=== PATIENT | female | born 1990 | race African-American/Black ===

== ENCOUNTER 2020-09-21 15:43 | Outpatient (REF) | payer MEDICAID, SELFPAY ==
--- NOTE | 2020-09-21 | XR_ITS ---
EXAMINATION: XR knee LT 4V CLINICAL INFORMATION: Reason for Exam PAIN LEFT KNEE COMPARISON: None available at the time of this dictation. TECHNIQUE: Frontal lateral oblique and tunnel view. FINDINGS: BONES: No fracture or dislocation is present. JOINTS: Mild narrowing of medial joint space compartment suggest early DJD. There is no joint effusion. SOFT TISSUE: Normal IMPRESSION: Mild DJD medial compartment. No joint effusion.
== END 2020-09-21 15:44 | disposition home or self-care (01) ==
LOC: HO.XRAY 15:43
PROVIDERS: PCP Internal Medicine; Visit Provider Emergency Medicine
DX: M25.562 Pain in left knee (principal)
CPT/HCPCS: 73564

== ENCOUNTER → 2020-11-21 16:25 | Outpatient (BNV) | payer MEDICAID, SELFPAY | PROVIDERS: PCP Internal Medicine; Visit Provider Internal Medicine | DX: D50.9 Iron deficiency anemia, unspecified (principal); Z98.84 Bariatric surgery status | CPT/HCPCS: 99213; 99214 ==

== ENCOUNTER 2020-11-29 13:34 | Outpatient (REF) | payer MEDICAID, SELFPAY | END 2020-11-29 13:35 | disposition home or self-care (01) | LOC: HO.MDS 13:34 | PROVIDERS: Visit Provider Internal Medicine Medical Oncology | DX: D50.9 Iron deficiency anemia, unspecified (principal) | CPT/HCPCS: 96365; J2916 ==

== ENCOUNTER 2020-12-05 07:56 | Outpatient (REF) | payer MEDICAID, SELFPAY | END 2020-12-05 07:57 | disposition home or self-care (01) | LOC: HO.MDS 07:56 | PROVIDERS: Visit Provider Internal Medicine Medical Oncology | DX: D50.9 Iron deficiency anemia, unspecified (principal) | CPT/HCPCS: 96365; J2916 ==

== ENCOUNTER 2020-12-09 14:00 | Outpatient (RCR) | payer MEDICAID, SELFPAY | END 2020-12-28 15:28 | disposition other institution (70) | LOC: HO.PTWFD 14:00 | PROVIDERS: PCP Internal Medicine; Visit Provider Emergency Medicine | DX: M25.562 Pain in left knee (principal) | CPT/HCPCS: 97014; 97110; 97140; 97161; 97530 ==

== ENCOUNTER 2020-12-14 09:16 | Outpatient (REF) | payer MEDICAID, SELFPAY | END 2020-12-14 09:17 | disposition home or self-care (01) | LOC: HO.MDS 09:16 | PROVIDERS: Visit Provider Internal Medicine Medical Oncology | DX: D50.9 Iron deficiency anemia, unspecified (principal) | CPT/HCPCS: 96365; J2916 ==

== ENCOUNTER 2020-12-21 09:46 | Outpatient (REF) | payer MEDICAID, SELFPAY | END 2020-12-21 09:47 | disposition home or self-care (01) | LOC: HO.MDS 09:46 | PROVIDERS: PCP Internal Medicine; Visit Provider Internal Medicine Medical Oncology | DX: D50.9 Iron deficiency anemia, unspecified (principal) | CPT/HCPCS: 96365; J2916 ==

== ENCOUNTER 2020-12-27 08:10 | Outpatient (REF) | payer MEDICAID, SELFPAY | END 2020-12-27 08:11 | disposition home or self-care (01) | LOC: HO.MDS 08:10 | PROVIDERS: PCP Internal Medicine; Visit Provider Internal Medicine Medical Oncology | DX: D50.9 Iron deficiency anemia, unspecified (principal) | CPT/HCPCS: 96365; J2916 ==

== ENCOUNTER 2021-01-04 11:51 | Outpatient (REF) | payer MEDICAID, SELFPAY | END 2021-01-04 11:52 | disposition home or self-care (01) | LOC: HO.MDS 11:51 | PROVIDERS: PCP Internal Medicine; Visit Provider Internal Medicine Medical Oncology | DX: D50.9 Iron deficiency anemia, unspecified (principal) | CPT/HCPCS: 96365; J2916 ==

== ENCOUNTER 2021-01-09 09:52 | Outpatient (REF) | payer MEDICAID, SELFPAY | END 2021-01-09 09:53 | disposition home or self-care (01) | LOC: HO.MDS 09:52 | PROVIDERS: PCP Internal Medicine; Visit Provider Internal Medicine Medical Oncology | DX: D50.9 Iron deficiency anemia, unspecified (principal) | CPT/HCPCS: J2916 ==

== ENCOUNTER 2021-01-11 13:10 | Outpatient (REF) | payer MEDICAID, SELFPAY ==
--- NOTE | ~2021-01-11 | US_ITS ---
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 Age 30. Patient status post excision previously biopsied fibroadenoma posterior upper outer right breast 01/28/2020 (fibroadenoma; no atypia or malignancy). COMPARISON: Targeted right breast ultrasound 01/08/2020, 07/10/2019, 01/02/2019. TECHNIQUE: Ultrasound of the right breast is targeted to the upper outer quadrant. Grayscale imaging and color Doppler are performed without and with harmonics. FINDINGS: Suspected fibroadenoma 11:00 position 7 cm from nipple is similar to prior exams, current measurements 1.3 x 1.2 x 0.9 cm. This is compared with prior measurement 01/08/2020 1.3 x 1.3 x 1.2 cm and original measurement 01/02/2019 1.2 x 1.0 x 1.0 cm. This is considered benign. Suspected fibroadenoma the 10:00 position 3 cm from nipple is similar to prior exams, current measurements 1.2 x 1.0 x 0.5 cm. This is compared with prior measurement 01/08/2020 1.2 x 1.1 x 0.5 cm and original measurement 01/02/2019 1.3 x 1.1 x 0.5 cm. This is considered benign. Results are discussed with the patient at time of visit. US/US breast RT limited IMPRESSION: The suspected fibroadenomas right breast 11:00 position 7 cm from nipple and right breast 10:00 position 3 cm from nipple are stable from prior targeted ultrasound exams and now considered benign. ASSESSMENT: BI-RADS 2: Benign RECOMMENDATION: Routine annual mammography screening, beginning age 40, or earlier as clinical risk factors warrant. This patient's information was entered into a reminder system with a target due date for their next mammogram.
== END 2021-01-11 13:11 | disposition home or self-care (01) ==
LOC: HO.MAMMO 13:10
PROVIDERS: Visit Provider Internal Medicine
DX: N63.11 Unspecified lump in the right breast, upper outer quadrant (principal)
CPT/HCPCS: 76642

== ENCOUNTER 2021-01-18 08:59 | Outpatient (REF) | payer MEDICAID, SELFPAY | END 2021-01-18 09:00 | disposition home or self-care (01) | LOC: HO.MDS 08:59 | PROVIDERS: PCP Internal Medicine; Visit Provider Internal Medicine Medical Oncology | DX: D50.9 Iron deficiency anemia, unspecified (principal) | CPT/HCPCS: 96365; J2916 ==

== ENCOUNTER 2021-03-24 13:32 | Outpatient (REF) | payer MEDICAID, SELFPAY ==
--- NOTE | ~2021-03-24 | XR_ITS ---
EXAMINATION: XR KNEE, LEFT CLINICAL INFORMATION: Pain COMPARISON: None TECHNIQUE: Bilateral frontal, left patella sunrise view of the left knee. FINDINGS: Mild narrowing of medial joint space compartment suggest mild DJD. Patella properly positioned. XR/XR knee LT 2V IMPRESSION: Mild DJD medial compartments.
== END 2021-03-24 13:33 | disposition home or self-care (01) ==
LOC: HO.HOSX 13:32
PROVIDERS: PCP Internal Medicine; Visit Provider Physician Assistant
DX: M25.562 Pain in left knee (principal); M19.90 Unspecified osteoarthritis, unspecified site
CPT/HCPCS: 20605; 20610; 73560; 99202; J1040

== ENCOUNTER 2021-04-28 13:00 | Outpatient (RCR) | payer MEDICAID, SELFPAY | END 2021-05-12 12:48 | disposition other institution (70) | LOC: HO.PTWFD 13:00 | PROVIDERS: PCP Internal Medicine; Visit Provider Physician Assistant | DX: M25.562 Pain in left knee (principal) | CPT/HCPCS: 97110; 97140; 97161 ==

== ENCOUNTER 2021-06-23 13:15 | Outpatient (REF) | payer MEDICAID, SELFPAY | END 2021-06-23 13:16 | disposition home or self-care (01) | LOC: HO.LAB 13:15 | PROVIDERS: PCP Internal Medicine; Visit Provider Internal Medicine | DX: Z13.89 Encounter for screening for other disorder (principal) ==

== ENCOUNTER 2021-08-23 07:39 | Outpatient (REF) | payer MEDICAID, SELFPAY | END 2021-08-23 07:40 | disposition home or self-care (01) | LOC: HO.MDS 07:39 | PROVIDERS: PCP Internal Medicine; Visit Provider Internal Medicine | DX: D50.9 Iron deficiency anemia, unspecified (principal) | CPT/HCPCS: 96365; 96366; J1200; J1750; Q0163 ==

== ENCOUNTER 2022-02-07 10:55 | Outpatient (REF) | payer MEDICAID, SELFPAY ==
--- NOTE | ~2022-02-07 | MM_ITS ---
EXAMINATION: MM DIAGNOSTIC DIGITAL BREAST TOMOSYNTHESIS, BILATERAL US DIAGNOSTIC ULTRASOUND BREAST, RIGHT CLINICAL INFORMATION: Age 31. Palpable concern 12:00 anterior mid right breast noted by patient. Prior history right fibroadenomas, one resected for mild increased size 01/28/2020 (fibroadenoma; no atypia or malignancy on excision). Patient is at bariatric surgery at outside facility with intentional significant weight loss since prior mammography 2018. No known family history breast cancer. The lifetime risk of breast cancer based on the Tyrer-Cuzick Model is 7%. COMPARISON: Mammography: 01/02/2019, 01/06/2019; ultrasound right breast 01/02/2019, 01/06/2019, 07/10/2019, 01/08/2020, 01/11/2021. TECHNIQUE: Digital breast tomosynthesis is performed in both the craniocaudal and mediolateral oblique views along with computer-aided detection (CAD). Synthesized 2D images are generated from the tomosynthesis. Ultrasound ultrasound right breast is targeted to the prior areas of known fibroadenoma as well as the anterior mid superior right breast at site of palpable concern. Patient imaged supine and upright. Patient is able to point to area of clinical concern at time of imaging. Grayscale imaging and color Doppler are performed without and with harmonics. FINDINGS: The breasts are extremely dense, which lowers the sensitivity of mammography (ACR BI-RADS breast composition Category d). Breast parenchymal pattern appears similar to prior exam. There is no interval mass or architectural abnormality or abnormal calcifications there is no mammographic correlate for patient's palpable symptoms. The axilla and skin contours are unremarkable. Ultrasound right breast demonstrates no cystic or solid mass or architectural abnormality in the area of clinical palpable concern. There is no duct ectasia or skin thickening or edema tracking in soft tissue planes. The suspected fibroadenoma 10:00 position 3-5 cm from nipple is stable, measuring 1.3 x 0.5 x 1.2 cm. This is compared with prior measurement 1.2 x 0.5 x 1.0 cm on prior ultrasound 01/11/2021 and 1.3 x 0.5 x 1.1 cm on ultrasound 01/02/2019. The suspected fibroadenoma 11:00 position 7-8 cm from nipple is stable, measuring 1.3 x 0.8 x 1.0 cm. This is compared with prior measurement 1.3 x 0.9 x 1.2 cm on prior ultrasound 01/11/2021 and 1.2 x 1.0 x 1.0 cm on ultrasound 01/02/2019. Results are discussed with the patient at time of visit, using an gravel screener. There is no imaging correlate for patient's palpable concern. Patient should be managed based on the clinical impression. If clinically indicated, further evaluation may be considered with surgical consult. Decision to proceed with biopsy should be based on clinical grounds and degree of clinical concern. MM/MM tomosynthesis diagnostic BI IMPRESSION: -No mammographic evidence of malignancy. -No mammographic or ultrasound correlate for patient's palpable concern 12:00 right breast. -Stable suspected fibroadenomatous right breast 10:00 and 11:00 position, considered benign. ASSESSMENT: BI-RADS 2: Benign RECOMMENDATION: 1. Patient should be managed based on the clinical impression. If clinically indicated, further evaluation may be considered with surgical consult. Decision to proceed with biopsy should be based on clinical grounds and degree of clinical concern. 2. Otherwise, routine annual screening mammography, beginning age 40, or earlier as clinical risk factors warrant. This patient's information was entered into a reminder system with a target due date for their next mammogram.
== END 2022-02-07 10:56 | disposition home or self-care (01) ==
LOC: HO.MAMMO 10:55
PROVIDERS: PCP Internal Medicine; Visit Provider Internal Medicine
DX: D24.1 Benign neoplasm of right breast (principal)
CPT/HCPCS: 76642; 77062; 77066

== ENCOUNTER 2022-02-14 09:36 | Outpatient (REF) | payer MEDICAID, SELFPAY ==
[2022-02-15 05:26] LABS: CT PCR NOT DETECTED (Not Detect.); NG PCR NOT DETECTED (Not Detect.)
[2022-02-17 09:26] LABS: HPV mRNA E6/E7 rflx Not Detected (Not Detected)
== END 2022-02-14 09:37 | disposition home or self-care (01) ==
LOC: HO.LAB 09:36
PROVIDERS: PCP Internal Medicine; Visit Provider Obstetrics & Gynecology
DX: Z01.419 Encounter for gynecological examination (general) (routine) without abnormal findings (principal); N93.9 Abnormal uterine and vaginal bleeding, unspecified; R10.2 Pelvic and perineal pain; N64.52 Nipple discharge; N64.3 Galactorrhea not associated with childbirth
CPT/HCPCS: 87491; 87591; 87624; 88142; 99202

== ENCOUNTER → 2022-02-20 14:40 | Outpatient (BNVA) | payer MEDICAID, SELFPAY | PROVIDERS: PCP Internal Medicine; Referring Provider Internal Medicine; Visit Provider Surgery | DX: N63.11 Unspecified lump in the right breast, upper outer quadrant (principal) | CPT/HCPCS: 99212 ==

== ENCOUNTER 2022-02-21 09:18 | Outpatient (REF) | payer MEDICAID, SELFPAY ==
[2022-02-21 10:06] LABS: Hematocrit 35.3 % (37.0-47.0); Hemoglobin 11.6 g/dl (12.0-16.0); Mean Corpuscular HGB Conc 32.9 g/dl (31.0-35.0); Mean Corpuscular Hemoglobin 28.7 pg (27.0-33.0); Mean Corpuscular Volume 87.4 fL (80.0-98.0); Mean Platelet Volume 9.2 fL (9.4-12.3); Platelet Count 311 X10*3/uL (160-400); Red Blood Count 4.04 X10*6/uL (4.20-5.50); Red Cell Distribution Width 12.1 % (11.0-16.0); White Blood Count 4.5 X10*3/uL (4.8-10.8)
[2022-02-21 10:58] LABS: HCG Quantitative < 2 mIU/mL; TSH reflex Free T4 0.96 uIU/mL (0.32-4.0)
== END 2022-02-21 09:19 | disposition home or self-care (01) ==
LOC: HO.LAB 09:18
PROVIDERS: PCP Internal Medicine; Visit Provider Obstetrics & Gynecology
DX: N93.9 Abnormal uterine and vaginal bleeding, unspecified (principal); N64.3 Galactorrhea not associated with childbirth
CPT/HCPCS: 36415; 84146; 84443; 84702; 85027

== ENCOUNTER 2022-04-11 11:17 | Outpatient (REF) | payer MEDICAID, SELFPAY ==
--- NOTE | ~2022-04-11 | US_ITS ---
EXAMINATION: US PELVIS TRANSVAGINAL CLINICAL INFORMATION: Abnormal uterine vaginal bleeding with midline and right lower quadrant pain. COMPARISON: 05/18/2019 and 03/05/2019. TECHNIQUE: Transcutaneous and transvaginal pelvic ultrasound. Transvaginal scanning was performed after voiding to better evaluate the endometrium and adnexa. FINDINGS: The uterus measures 7.0 x 3.0 x 6.1 cm. The uterus is anteverted. No suspicious abnormalities region of the cervix. The uterine contour is smooth. The endometrium is thickened and measures 1.9 cm. There is a small amount of endometrial fluid. No focal abnormalities within the myometrium. The right ovary measures approximately 4.0 x 3.2 x 2.4 cm. The calculated right ovarian volume is approximately 11.1 mL. There is a 2.0 x 1.9 x 1.7 cm heterogeneous echotexture corpus luteal cyst. There is also an 8 x 8 x 6 mm cyst with a few calcifications present. No suspicious adnexal mass. Normal vascularity present. The left ovary measures 2.2 x 2.1 x 1.3 cm. The calculated left ovarian volume is approximately 3.1 mL. There are a few echogenic calcifications present. No suspicious adnexal mass. Normal vascularity. Small amount of free pelvic fluid. US/US pelvic and transvaginal IMPRESSION: Thickened endometrium with small amount of endometrial canal fluid. Right ovarian corpus luteum cyst as well as a few calcifications being present. There are a few echogenic left adnexal structures consistent with calcifications with no suspicious mass.
== END 2022-04-11 11:18 | disposition home or self-care (01) ==
LOC: HO.US 11:17
PROVIDERS: PCP Internal Medicine; Visit Provider Obstetrics & Gynecology
DX: N93.9 Abnormal uterine and vaginal bleeding, unspecified (principal)
CPT/HCPCS: 76830; 76856

== ENCOUNTER → 2022-04-19 14:50 | Outpatient (BNVA) | payer MEDICAID, SELFPAY | PROVIDERS: PCP Internal Medicine; Visit Provider Obstetrics & Gynecology | DX: N93.9 Abnormal uterine and vaginal bleeding, unspecified (principal); N64.52 Nipple discharge; R10.2 Pelvic and perineal pain | CPT/HCPCS: 99212 ==

== ENCOUNTER 2022-05-09 10:21 | Outpatient (REF) | payer MEDICAID, SELFPAY | END 2022-05-09 10:22 | disposition home or self-care (01) | LOC: HO.MDS 10:21 | PROVIDERS: Visit Provider Internal Medicine | DX: D50.9 Iron deficiency anemia, unspecified (principal) | CPT/HCPCS: 96365; J2916 ==

== ENCOUNTER 2022-05-16 10:57 | Outpatient (REF) | payer MEDICAID, SELFPAY | END 2022-05-16 10:58 | disposition home or self-care (01) | LOC: HO.MDS 10:57 | PROVIDERS: Visit Provider Internal Medicine | DX: D50.9 Iron deficiency anemia, unspecified (principal) | CPT/HCPCS: 96365; J2916 ==

== ENCOUNTER 2022-05-23 11:54 | Outpatient (REF) | payer MEDICAID, SELFPAY | END 2022-05-23 11:55 | disposition home or self-care (01) | LOC: HO.MDS 11:54 | PROVIDERS: Visit Provider Internal Medicine | DX: D50.9 Iron deficiency anemia, unspecified (principal) | CPT/HCPCS: 96365; J2916 ==

== ENCOUNTER 2022-07-25 10:29 | Outpatient (REF) | payer MEDICAID, SELFPAY ==
[2022-07-25 11:49] LABS: Hematocrit 32.8 % (37.0-47.0); Mean Corpuscular HGB Conc 33.5 g/dl (31.0-35.0); Mean Corpuscular Hemoglobin 29.3 pg (27.0-33.0); Mean Corpuscular Volume 87.5 fL (80.0-98.0); Mean Platelet Volume 9.4 fL (9.4-12.3); Platelet Count 303 X10*3/uL (160-400); Red Blood Count 3.75 X10*6/uL (4.20-5.50); Red Cell Distribution Width 12.4 % (11.0-16.0); White Blood Count 6.4 X10*3/uL (4.8-10.8)
== END 2022-07-25 10:30 | disposition home or self-care (01) ==
LOC: HO.LAB 10:29
PROVIDERS: PCP Internal Medicine; Visit Provider Obstetrics & Gynecology
DX: N93.9 Abnormal uterine and vaginal bleeding, unspecified (principal)
CPT/HCPCS: 36415; 85027; 99212

== ENCOUNTER 2022-10-30 14:46 | Outpatient (REF) | payer MEDICAID, SELFPAY | END 2022-10-30 14:47 | disposition home or self-care (01) | LOC: HO.LAB 14:46 | PROVIDERS: PCP Internal Medicine; Visit Provider Obstetrics & Gynecology | DX: Z13.89 Encounter for screening for other disorder (principal) ==

== ENCOUNTER → 2022-10-31 08:45 | Outpatient (BNVA) | payer MEDICAID, SELFPAY | PROVIDERS: PCP Internal Medicine; Referring Provider Internal Medicine; Visit Provider Internal Medicine Cardiovascular Disease | DX: R00.2 Palpitations (principal); N93.9 Abnormal uterine and vaginal bleeding, unspecified | CPT/HCPCS: 93005; 99202; 99212 ==

== ENCOUNTER → 2022-11-07 12:50 | Outpatient (REF) | payer MEDICAID, SELFPAY ==
--- NOTE | 2022-11-07 12:54 | CA_ITS ---
Transthoracic Echocardiogram Patient (Last, First, Middle): Rika Gregorio, Gender: Female Date of : 1990 Age: 31 Procedure Date: 11/07/2022 Procedure Type: Transthoracic Echocardiogram Location: OP Height: 149.86 cm Weight: 44. kg BSA: 1.36 m2 Heart Rate: 78 bpm BP: 108 / 68 mmHg Adobe Maker: HAILEY Referring MD: aNndo Wood MD Swimming Pool Salesperson: Nando Wood MD Symptoms: R00.2 - Palpitations Study Quality: Adequate ECG Rhythm: Sinus Conclusions: - Essentially normal study Findings Left Ventricle Normal left ventricular size, thickness, and systolic function. The visually estimated ejection fraction is between 60-65%. Diastolic function is normal for age. Right Ventricle Normal right ventricular cavity size and systolic function. Atria Both atria are normal in size. Interatrial shunt cannot be excluded. Aortic Valve Normal aortic valve structure and function. There is no aortic valve stenosis. There is no aortic valve regurgitation. Mitral Valve Normal mitral valve structure and function. There is trace mitral valve regurgitation. There is no mitral valve stenosis. Pulmonic Valve The pulmonic valve is likely normal. Tricuspid Valve Normal tricuspid valve structure. Tricuspid regurgitation envelope is inadequate for calculation of right ventricular systolic pressure. Normal right atrial pressure. Great Vessels All visible segments of the aorta are normal in size. The pulmonary artery was not well visualized. Venous The inferior vena cava is normal in size and collapses greater than 50% with inspiration. Pericardium/Pleural There is no evidence of pericardial effusion. Prior Study Comparison No prior study available for comparison. there was a delay in reading the study due to technical issues with the vendor Measurements 2D Linear Measurements IVSd: 0.45 0.6-0.9/0.6-1.0 cm LVIDd: 4.22 3.9-5.3/4.2-5.9 cm LVIDd Index: 3.10 2.4-3.2/2.2-3.1 cm/m2 LVIDs: 2.69 2.0-3.6 cm LVPWd: 0.45 0.7-1.1 cm LA Diam: 2.60 2.7-3.8/3.0-4.0 cm LAIDs Index: 1.91 1.5-2.3 cm/m2 LV Mass: 61.35 67-162/88-224 g LV Mass Index: 45.11 43-95/49-115 g/m2 LVOT Diam: 2.20 3.0+(-)1.3 cm 2D Systolic Function EF 4C: 60.40 >55% EF 2C: 61.80 >55% EF BiP: 59.80 >55% Mitral Valve MV Pk E: 0.93 MV PK A: 0.39 MV Decel Time: 152.00 E/A: 2.40 E'Lateral: 17.10 E'Medial: 11.20 E/E' Med: 8.30 E/E' Lat: 5.40 PHT: 45.00 MVA PHT: 4.89 Decel [place]: 6.11 Aortic Valve AoV Pk Ben: 0.96 AoV Pk Grad: 4.00 TRACE: 3.78 LVOT LVOT Pk Ben: 0.95 LVOT Mn Ben: 0.65 LVOT VTI: 0.17 LVOT Pk Grad: 4.00 LVOT Mn Grad: 2.00 LVOT Diam: 2.20 LVOT Area: 3.80 Diastolic Function MV Pk E: 0.93 MV Pk A: 0.39 E/A: 2.40 E'Medial: 11.20 E/E' Med: 8.30 E' Laterial: 17.10 E/E' Lat: 5.40 Right Ventricle TAPSE (mm): 22.30 TVS' Ben: 15.00 Tricuspid Valve RA Press: 3.00 Great Vessels Aorta Sinus of Valsalva: 2.60 2.0-3.5 cm Ao Asc: 2.80 2.1-3.4 cm Pulmonary Veins Pulm Vein S/D 1.20 Pulmonary Valve PV Pk Ben: 0.75 Peak PV Grad: 2.00 Updated in Other Vendor System with Status of Final Nando Wood MD electronically signed on 11/09/2022 8:54:23 AM with status of Final
--- NOTE | 2022-11-07 12:54 | HM_ITS ---
Cardiac event monitor Indication: Palpitation Technique: Patient with was soaked up to cardiac event monitor for total period of 30 days with the compliance of 53%. Test onset date was 11/07/2022. Findings: Baseline was normal sinus rhythm with no significant pauses. Frequent sinus tachycardia with heart rate greater than 100 beats per minute noted 32% of the time. Rare ectopy noted with PACs and PVCs. No other sustained arrhythmias noted. Patient reported 12 events with symptoms reported only 1 time of palpitation which correlated with sinus arrhythmia. Remainder of the 11 events correlated with sinus rhythm or sinus tachycardia with no arrhythmias. Conclusion: 1. Baseline normal sinus rhythm with frequent sinus tachycardia 2. Patient reported events correlated with sinus rhythm was sinus tachycardia 3. No significant arrhythmias noted MTDD
== END ==
LOC: HO.CARD 12:50
PROVIDERS: PCP Internal Medicine; Visit Provider Internal Medicine Cardiovascular Disease
DX: R00.2 Palpitations (principal)
CPT/HCPCS: 93270; 93306

== ENCOUNTER 2022-11-12 13:33 | Outpatient (REF) | payer MEDICAID, SELFPAY ==
[2022-11-13 02:15] LABS: CT PCR NOT DETECTED (Not Detect.); NG PCR NOT DETECTED (Not Detect.)
== END 2022-11-12 13:34 | disposition home or self-care (01) ==
LOC: HO.LNP 13:33
PROVIDERS: PCP Internal Medicine; Visit Provider Obstetrics & Gynecology
DX: Z30.430 Encounter for insertion of intrauterine contraceptive device (principal); Z32.02 Encounter for pregnancy test, result negative; N93.9 Abnormal uterine and vaginal bleeding, unspecified
CPT/HCPCS: 58300; 81025; 87491; 87591; J7298

== ENCOUNTER → 2022-12-12 15:12 | Outpatient (BNVA) | payer MEDICAID, SELFPAY | PROVIDERS: PCP Internal Medicine; Visit Provider Obstetrics & Gynecology | DX: Z30.431 Encounter for routine checking of intrauterine contraceptive device (principal) | CPT/HCPCS: 81025; 99212 ==

== ENCOUNTER → 2023-01-02 12:53 | Outpatient (BNVA) | payer MEDICAID, SELFPAY | PROVIDERS: PCP Internal Medicine; Visit Provider Nurse Practitioner Family | DX: R00.2 Palpitations (principal); R00.0 Tachycardia, unspecified | CPT/HCPCS: 99212 ==

== ENCOUNTER 2023-01-04 11:58 | Outpatient (REF) | payer MEDICAID, SELFPAY ==
[2023-01-04 13:14] LABS: Hematocrit 34.7 % (37.0-47.0); Hemoglobin 11.4 g/dl (12.0-16.0); Mean Corpuscular HGB Conc 32.9 g/dl (31.0-35.0); Mean Corpuscular Hemoglobin 29.2 pg (27.0-33.0); Mean Corpuscular Volume 88.7 fL (80.0-98.0); Platelet Count 294 X10*3/uL (160-400); Red Blood Count 3.91 X10*6/uL (4.20-5.50); Red Cell Distribution Width 12.4 % (11.0-16.0); White Blood Count 8.6 X10*3/uL (4.8-10.8)
[2023-01-04 14:10] LABS: TSH reflex Free T4 1.18 uIU/mL (0.32-4.0)
== END 2023-01-04 11:59 | disposition home or self-care (01) ==
LOC: HO.LAB 11:58
PROVIDERS: Obstetrics & Gynecology; Visit Provider Nurse Practitioner Family
DX: R00.0 Tachycardia, unspecified (principal); D64.9 Anemia, unspecified
CPT/HCPCS: 36415; 84443; 85027

== ENCOUNTER 2023-04-10 08:33 | Outpatient (REF) | payer MEDICAID, SELFPAY ==
[2023-04-12 04:18] LABS: HPV mRNA E6/E7 rflx Not Detected (Not Detected)
== END 2023-04-10 08:34 | disposition home or self-care (01) ==
LOC: HO.LNP 08:33
PROVIDERS: PCP Internal Medicine; Visit Provider Obstetrics & Gynecology
DX: Z01.419 Encounter for gynecological examination (general) (routine) without abnormal findings (principal); Z97.5 Presence of (intrauterine) contraceptive device
CPT/HCPCS: 87624; 88142

== ENCOUNTER → 2023-05-02 14:28 | Outpatient (BNVA) | payer MEDICAID, SELFPAY | PROVIDERS: PCP Registered Nurse; Referring Provider Registered Nurse; Visit Provider Nurse Practitioner Family | DX: R00.2 Palpitations (principal); R00.0 Tachycardia, unspecified | CPT/HCPCS: 99212 ==

== ENCOUNTER 2023-05-08 | Outpatient (REF) | payer MEDICAID, SELFPAY | END 2023-05-08 00:01 | LOC: CF | PROVIDERS: PCP Registered Nurse; Visit Provider Anesthesiology | DX: M47.816 Spondylosis without myelopathy or radiculopathy, lumbar region (principal); M47.819 Spondylosis without myelopathy or radiculopathy, site unspecified | CPT/HCPCS: 99202 ==

== ENCOUNTER → 2023-05-08 10:04 | Outpatient (REF) | payer MEDICAID, SELFPAY ==
--- NOTE | ~2023-05-08 | XR_ITS ---
EXAMINATION: XR LUMBOSACRAL SPINE WITH OBLIQUES CLINICAL INFORMATION: Spondylosis without myelopathy or radiculopathy. COMPARISON: Radiographs dated 07/31/2019. TECHNIQUE: AP, both oblique, and lateral views of the lumbar spine. Lateral view of the lumbosacral junction. FINDINGS: Vertebral body heights are normal. There is a mild lumbar levoscoliosis. The lower thoracic and lumbar disc spaces are well-maintained. No acute fracture or spondylolisthesis is seen. There is no spondylolysis defect on the oblique views. The paravertebral soft tissues are unremarkable. An intrauterine device is noted. XR/XR lumbar spine 4V min IMPRESSION: 1. There is a mild lumbar levoscoliosis. 2. No acute fracture or spondylolisthesis is seen. There is no spondylolysis defect seen. 3. The lumbar disc spaces are well-maintained.
--- NOTE | 2023-05-08 10:08 | HM_ITS ---
Conclusion: 1. Patient was monitored for total period of 5 days and 23 hours 2. Baseline was normal sinus rhythm with average heart of 88 beats per minute 3. No significant pauses noted 4. Very rare PACs noted 5. No patient reported events MTDD
== END ==
LOC: HO.CARD 10:04
PROVIDERS: Absent Provider Anesthesiology; PCP Registered Nurse; Visit Provider Nurse Practitioner Family
DX: R00.0 Tachycardia, unspecified (principal); R00.2 Palpitations; M47.816 Spondylosis without myelopathy or radiculopathy, lumbar region; M47.819 Spondylosis without myelopathy or radiculopathy, site unspecified
CPT/HCPCS: 72110; 93242

== ENCOUNTER 2023-05-21 06:11 | Outpatient (REF) | payer MEDICAID, SELFPAY ==
--- NOTE | ~2023-05-21 | FL_ITS ---
EXAMINATION: XR FLUOROSCOPY WITH IMAGES CLINICAL INFORMATION: Spondylosis without myelopathy or radiculopathy, lumbar region. COMPARISON: None available. TECHNIQUE: Fluoroscopy Supervised By: Dr. Richardson. Fluoroscopy Time: 0.5 minutes. Cumulative Dose: 4.83 mGy. DAP: Gycm2. Images: 6. FINDINGS: Images demonstrate needle and contrast injection adjacent to the bilateral lateral L3, L4 and L5 vertebral bodies FL/FL guidance in treatment room IMPRESSION: Fluoroscopy guidance for pain management procedure.
== END 2023-05-21 06:12 | disposition home or self-care (01) ==
LOC: CF 06:11
PROVIDERS: Visit Provider Anesthesiology
DX: M47.816 Spondylosis without myelopathy or radiculopathy, lumbar region (principal)
CPT/HCPCS: 64493; 64494

== ENCOUNTER → 2023-05-27 16:05 | Outpatient (BNVA) | payer MEDICAID, SELFPAY | PROVIDERS: PCP Registered Nurse; Visit Provider Anesthesiology ==

== ENCOUNTER 2023-06-06 14:05 | Day surgery (SDC) | payer MEDICAID, SELFPAY ==
--- NOTE | ~2023-06-06 | FL_ITS ---
EXAMINATION: XR FLUOROSCOPY WITH IMAGES CLINICAL INFORMATION: Pain COMPARISON: 05/08/2023 TECHNIQUE: Fluoroscopy Supervised By: Dr. Richardson. Fluoroscopy Time: 0.2 minutes. Cumulative Dose: 1.84 mGy. DAP: 0.418 Gycm2. Images: 3. FINDINGS: Sequential imaging demonstrates a needle placed overlying the left pedicle of L5. FL/FL guidance in OR IMPRESSION: Fluoroscopy for pain management procedure.
[2023-06-06 14:31] VITALS: BMI 21.6
[2023-06-06 14:32] VITALS: BP 101/71; PULSE 91; RESP 18; TEMP 36.6; O2SAT 98
--- NOTE | 2023-06-06 14:55 | MHC.SHP ---
Pre-Procedural Eval Section A Date of Service: 06/06/23 The patient is an INPATIENT: No Changes since office visit: Yes Patient answered all questions The History & Physical has been completed within 30 days and I have reviewed it.: No Section B Chief Complaint: Spondylosis without myelopathy or radiculopathy Details of Present Illness: as above Relevant Family History (Specify if Yes): No Relevant Social History: None Present Medications: None Medical History: No relevant PMH History of Previous Operations: No relevant previous surgery Allergies: Allergies Allergy/AdvReac Type Severity Reaction Status Date / Time SEAFOOD Allergy Severe ITCHY Uncoded 06/06/23 14:11 THROAT shellfish Allergy Unknown ITCHY Uncoded 06/06/23 14:11 THROAT Review of Systems Sugical H&P ROS: Negative: Constitution, Cardiovascular, Respiratory, Neurological, Psychiatric, Hem-Onc, Allergic/Immunologic, Gastrointestinal, Genitourinary, Musculoskeletal, Integumentary, Endocrine and Eyes/Ears/Nose/Throat Exam Surgical H&P Exam: Normal: HEENT, Normal: Heart, Normal: Lungs, Normal: Extremities, Normal: Abdomen, Normal: Skin and Normal: Neurological Plan Diagnosis/Plan: Unchanged I have reviewed the history and physical and performed a pertinent physical examination on my patient. No changes have occurred unless specified. Time Spent With Patient Time: Total time managing care of this patient today ___5_ minutes.
--- NOTE | 2023-06-06 15:29 | PM.OP ---
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
--- NOTE | 2023-06-06 15:30 | W.PM.OPN ---
Operative Note Operative Note Date of Service: 06/06/23 Narrative: Percutaneous implantation of peripheral nerve stimulation Sprint system right L5. After the risks, benefits and alternatives were discussed with the patient and informed consent was obtained, patient was placed in the prone position and padded to foster comfort. Time out was performed delineating correct site and side of the procedure , name and of the patient, patient participated in time out procedure. Sterily draped C-arm was brought over the operating field and clear picture of the L5 lamina on the right was delineated on the screen. The upper central portion of the lamina was chosen as a target of the needle tip insertion . After identifying and marking the intended target, the skin around the planned entry point and the subcutaneous tissues were injected with local anesthetic forming skin wheal.. A percutaneous sleeve and stimulating probe lead introduction system were assembled, inserted and advanced through the skin wheal to the point of interest under C-arm view in acute angle to the target from the points cephalad direction, the introducer needle was delivered to a location in proximity to the nerve. Multiple stimulation parameters were used to deliver stimulation to the nerve in concert with stimulating at multiple positions around the nerve. Here nerve target acquisition was confirmed noting generation of in the corresponding to the nerve being stimulated. Various electrical parameter combinations were tested, and the lead location was adjusted (physically relocated) until the patient indicated overlapping the distribution of the patient?s typical region of pain. The stimulating probe was removed from the introducer and a percutaneous lead was guided through the needle and delivered to a location in similar proximity to the nerve. Final location was verified with electrical stimulation. The introducer needle was removed, and the exposed end of the percutaneous lead was attached to an external stimulator unit. At the end of the case various electrical parameter combinations were again tested until the patient indicated paresthesia or muscle tension overlapping the distribution of the patient?s typical region of pain. After confirming that lead impedance was in the normal range, the external unit was detached, the needle was removed, and the lead was anchored at the skin. The lead was threaded into the connector block and electrical continuity and desired patient response was confirmed. The connector block was attached to the external stimulator unit. The site was covered with a sterile occlusive dressing and a image was taken to document final placement. Upon completion of the procedure the patient was taken outside the OR where she recovered uneventfully.
[2023-06-06 15:34] VITALS: BP 102/75; PULSE 70; RESP 16; TEMP 36.6; O2SAT 100
== END 2023-06-06 16:05 | disposition home or self-care (01) ==
PROVIDERS: PCP Internal Medicine; Visit Provider Anesthesiology
PROC: (CPT 64555; principal; 2023-06-06 15:00)
DX: M47.816 Spondylosis without myelopathy or radiculopathy, lumbar region (principal); G89.4 Chronic pain syndrome; M62.838 Other muscle spasm
CPT/HCPCS: 64555; C1778; J2795

== ENCOUNTER 2023-06-12 10:38 | Outpatient (AMB) | payer MEDICAID, SELFPAY ==
--- NOTE | 2023-06-12 11:02 | MHC.OFFVIS ---
Intake Vital Signs 06/12/23 11:06 Height 4 ft 11 in Weight 110 lb BMI 22.2 BP 112/68 Blood Pressure Location Lt brachial Position Sitting Respiration 18 Pulse 73 Pulse Source Pulse Oximeter Pulse Oximetry (%) 96 Oxygen Delivery Method Room Air Intake Visit Reasons: s/p R. L5 Sprint 06/06/23 Intake Note: patient comes in for post-op. Allergies SEAFOOD Allergy (Severe, Uncoded 06/06/23 14:11) ITCHY THROAT shellfish Allergy (Unknown, Uncoded 06/06/23 14:11) ITCHY THROAT HPI HPI Comments History of Present Illness Details Rika is in the office today to discuss the results of the right-sided implantation of the sprint PNS, she reports excellent pain relief, she reports better mobility, better activities of daily living better social interactions. She is waiting for completion of the procedure with insertion of the left-sided stimulating device. It is scheduled on 06/20/2023. Follow-up appointment is scheduled in the office for her after that. Dressing changed today: The wound is clean, the position of the electrode is appropriate. There is no pathological discharge. Dressing is changed with ChloraPrep gentle prep around and sterile dressing with Tegaderm. bilateral L3-L4 does ramus L5 medial branch block which was performed for her on 05/21/2023. She reported about 50% pain improvement immediately after procedure. She reported that it lasted up to the end of the day of the procedure. She reported complete elimination of the pain for the next day of the procedure. She was 24 hours free of pain. She slept very well at the end of that day. The pain started to come back only in the morning of the 3rd day after the procedure. And it was not return of the pain to complete full strength. It looks like that the patient does suffer from spondylosis of lumbar spine. I offered to the patient and explained to her sprint PNS 1st on the right and then on the left. Patient agreed to go for the procedure. She believes that she can obtain light duties for the 1st 8 weeks after the procedure of PNS sprint -the only thing she would require is to provide a letter to her employer about her condition. Prior: very pleasant 32 years old female who is in my office with complains on lower back pain and pain in bilateral trapezius muscles inform us spasms.? She reports her pain as pins and needles numbing sensation stabbing sensation and diet the pain radiates down the left lower extremity to the level of just below her left knee but not below that level.? She reports that she can not sleep normally but she cannot function normally because of her pain.? Is employed full-time.? She reports that heat applications alleviate her pain.? She had physical therapy for her pain with not significant relief.? Long time ago in 2019 she had chiropractic manipulations and she reported only pain aggravations.? She never had any diagnostic studies of her lumbar spine.? No MRI no CT scans were done.? She never had any injections.? 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 Her past surgical history significant for breast mass biopsy and gastric bypass surgery. [facility] Medical History Abnormal uterine bleeding Anemia Arthritis Chronic neck pain Dysplasia of cervix, low grade (BOBBY 1) Fibroadenoma Migraine Obesity Sciatica Surgical History H/O tubal ligation History of lumpectomy of right breast (01/28/20) History of wisdom tooth extraction Hx of gastric bypass Family History Father Asthma Social History Household Members: Children Housing: House Are you a primary career and technology education teacher to a significant other at home: Yes (children) Do you presently have visiting nurse or other home services: No Alcohol intake: former Patient Tobacco Use Status: Never used Tobacco service: No Current occupational status: employed Current occupation: [employer] /rt handed Female Reproductive History Menstrual Age of Menarche: 8 Review of Systems ENT Reports Normal hearing present Neuro Reports Normal hearing present, Denies Abnormal speech present, Denies confusion and Denies Sensory deficit (Neuro) Psych Denies confusion Physical Exam Vital Signs: Last Vital Signs Pulse 73 06/12/23 11:06 Resp 18 06/12/23 11:06 BP 112/68 06/12/23 11:06 Pulse Ox 96 07/12/23 11:06 Oxygen Delivery Method Room Air 07/12/23 11:06 BMI result Body Mass Index 22.2 Const General: no acute distress; No confusion Orientation/consciousness: patient oriented x3 and No confusion Eyes General: appearance normal, both eyes and all related structures Pupils: Equal, round and reactive pupils present EOM: EOMs intact bilaterally Neck Neck: Yes full ROM Chest Chest palpation & inspection: normal inspection of the chest Resp Effort & Inspection: normal respiratory effort, able to speak in complete sentences, normal respiratory pattern, no audible wheezes and no cough Cardio Jugular venous distension: no JVD GI Inspection: Yes normal to inspection Back/Spine/Pelvis Other: Denies numbness in bilateral lower extremities denies pelvic organ dysfunction. Able to stand on bilateral tiptoes without difficulty. Able to stand on bilateral heels without difficulty. Able to dorsiflex both great toes without difficulty. SLR is negative bilaterally. Dangelo test is negative bilaterally. Stinchfield test is negative bilaterally. Loading test is positive bilaterally. Severe tenderness on palpation in the projection of the most lower portion of the lumbar spine. The tenderness is in paraspinal as well as spinal regions. Flexing forward and flexing backwards both aggravate her pain but flexing backwards aggravates her pain more than flexing forward. Neuro General: patient oriented x3, gait normal and No confusion Cranial nerves: Yes CN's II-XII intact bilaterally, Yes Equal, round and reactive pupils present, Yes Normal hearing present and Yes Ability to bilaterally elevate shoulders present Speech: No Abnormal speech present Gait exam (Neuro): Normal gait present Motor exam (neuro): 5/5 motor strength present throughout Sensory Exam: No Sensory deficit (Neuro) Extrem General: No pedal edema Psych Speech and movement: Normal speech and movement present Affect: normal affect Attitude: cooperative Thought process: Normal thought process present Thought content: Normal thought content present Insight: Good insight present (Psych) Judgement: Good judgement present (Psych) Assessment & Plan Assessment & Plan (1) Spondylosis of lumbar region without myelopathy or radiculopathy: Code(s): M47.816 - Spondylosis without myelopathy or radiculopathy, lumbar region (2) Chronic pain syndrome: Code(s): G89.4 - Chronic pain syndrome (3) Arthropathy of facet joint: Code(s): M47.819 - Spondylosis without myelopathy or radiculopathy, site unspecified (4) Trapezius muscle spasm: Code(s): M62.838 - Other muscle spasm Plan Very impressive results of the diagnostic medial branch block L3-L4 dorsal ramus L5 on 04/20/2023.. Immediately after procedure pain went 50%. She received complete pain relief 100% for the next 24 hours after the day of the procedure. The pain started slowly to come back after that day. Good results of spring PNS after 1 side implantation. She is due for implantation on the other side in 1 week. She is at work accommodated with minimal physical activity. She works at [employer]. Coding Level of Care Code Est Pt Level 4 (00443) Diagnoses Spondylosis of lumbar region without myelopathy or radiculopathy M47.816 Chronic pain syndrome G89.4 Arthropathy of facet joint M47.819 Trapezius muscle spasm M62.838
[2023-06-12 11:06] VITALS: BP 112/68; PULSE 73; RESP 18; O2SAT 96; BMI 22.2
== END 2023-06-12 11:37 | disposition home or self-care (01) ==
PROVIDERS: PCP Registered Nurse; Visit Provider Anesthesiology
DX: G89.4 Chronic pain syndrome (principal); M47.816 Spondylosis without myelopathy or radiculopathy, lumbar region; M47.819 Spondylosis without myelopathy or radiculopathy, site unspecified; M62.838 Other muscle spasm
CPT/HCPCS: 99214

== ENCOUNTER → 2023-06-12 10:38 | Outpatient (BNVA) | payer MEDICAID, SELFPAY | PROVIDERS: PCP Registered Nurse; Visit Provider Anesthesiology | DX: M47.816 Spondylosis without myelopathy or radiculopathy, lumbar region (principal); M47.819 Spondylosis without myelopathy or radiculopathy, site unspecified; M62.838 Other muscle spasm; G89.4 Chronic pain syndrome | CPT/HCPCS: 99212 ==

== ENCOUNTER 2023-06-20 13:27 | Day surgery (SDC) | payer MEDICAID, SELFPAY ==
--- NOTE | ~2023-06-20 | FL_ITS ---
EXAMINATION: XR FLUOROSCOPY WITH IMAGES CLINICAL INFORMATION: L5 medial branch block PNS SPRINT. COMPARISON: None available. TECHNIQUE: Fluoroscopy Supervised By: Dr. Rodrick Richardson. Fluoroscopy Time: 0.1 minutes. Cumulative Dose: 0.555 mGy. DAP: 0.14426 Gycm2. Images: 1. FINDINGS: There is a single image of lower lumbar spine with wires positioned along the right L4-L5 disc base for sprain procedure. Visualized bones are grossly unremarkable. FL/FL guidance in OR IMPRESSION: Fluoroscopy was provided for right L4-L5 medial branch block procedure.
[2023-06-20 13:57] VITALS: BMI 22.2
[2023-06-20 14:04] VITALS: BP 105/70; PULSE 65; RESP 18; TEMP 36.6; O2SAT 100
--- NOTE | 2023-06-20 14:36 | MHC.SHP ---
Pre-Procedural Eval Section A Date of Service: 06/20/23 The patient is an INPATIENT: No Changes since office visit: Yes Patient answered all questions The History & Physical has been completed within 30 days and I have reviewed it.: No Section B Chief Complaint: Spondylosis without myelopathy or radiculopathy Details of Present Illness: as above Relevant Family History (Specify if Yes): No Relevant Social History: None Present Medications: None Medical History: No relevant PMH History of Previous Operations: No relevant previous surgery Allergies: Allergies Allergy/AdvReac Type Severity Reaction Status Date / Time SEAFOOD Allergy Severe ITCHY Uncoded 06/06/23 14:11 THROAT shellfish Allergy Unknown ITCHY Uncoded 06/06/23 14:11 THROAT Review of Systems Sugical H&P ROS: Negative: Constitution, Cardiovascular, Respiratory, Neurological, Psychiatric, Hem-Onc, Allergic/Immunologic, Gastrointestinal, Genitourinary, Musculoskeletal, Integumentary, Endocrine and Eyes/Ears/Nose/Throat Exam Surgical H&P Exam: Normal: HEENT, Normal: Heart, Normal: Lungs, Normal: Extremities, Normal: Abdomen, Normal: Skin and Normal: Neurological Plan Diagnosis/Plan: Unchanged I have reviewed the history and physical and performed a pertinent physical examination on my patient. No changes have occurred unless specified. Time Spent With Patient Time: Total time managing care of this patient today ____ minutes.
[2023-06-20] MEDS: LORazepam 1 MG TABLET PO (14:45)
--- NOTE | 2023-06-20 14:47 | PC.NURSE ---
OR desk updated that dr. garcia stated that surgical consent only needs to say L% because that is all that he is doing today. Possibilities removed from OR schedule.
--- NOTE | 2023-06-20 15:15 | PM.OP ---
Brief Operative Note Date of Service: 06/06/23 Pre-op diagnosis: spondylosis lumbar without myelo/radiculopathy Post-op diagnosis: same Procedure: L5 PNS SPRINT on the left Surgeon: Rodrick Richardson MD Anesthesia: local Was an Balancing Machine Operator used for this Procedure?: No Estimated blood loss (mL): 0 Condition: stable Disposition: PACU
--- NOTE | 2023-06-20 15:16 | W.PM.OPN ---
Operative Note Operative Note Date of Service: 06/20/23 Narrative: Percutaneous implantation of peripheral nerve stimulation Sprint system gloriagt L5. After the risks, benefits and alternatives were discussed with the patient and informed consent was obtained, patient was placed in the prone position and padded to foster comfort. Time out was performed delineating correct site and side of the procedure , name and of the patient, patient participated in time out procedure. Sterily draped C-arm was brought over the operating field and clear picture of the L5 lamina on the left was delineated on the screen. The upper central portion of the lamina was chosen as a target of the needle tip insertion . After identifying and marking the intended target, the skin around the planned entry point and the subcutaneous tissues were injected with local anesthetic forming skin wheal.. A percutaneous sleeve and stimulating probe lead introduction system were assembled, inserted and advanced through the skin wheal to the point of interest under C-arm view in acute angle to the target from the points cephalad direction, the introducer needle was delivered to a location in proximity to the nerve. Multiple stimulation parameters were used to deliver stimulation to the nerve in concert with stimulating at multiple positions around the nerve. Here nerve target acquisition was confirmed noting generation of in the corresponding to the nerve being stimulated. Various electrical parameter combinations were tested, and the lead location was adjusted (physically relocated) until the patient indicated overlapping the distribution of the patient?s typical region of pain. The stimulating probe was removed from the introducer and a percutaneous lead was guided through the needle and delivered to a location in similar proximity to the nerve. Final location was verified with electrical stimulation. The introducer needle was removed, and the exposed end of the percutaneous lead was attached to an external stimulator unit. At the end of the case various electrical parameter combinations were again tested until the patient indicated paresthesia or muscle tension overlapping the distribution of the patient?s typical region of pain. After confirming that lead impedance was in the normal range, the external unit was detached, the needle was removed, and the lead was anchored at the skin. The lead was threaded into the connector block and electrical continuity and desired patient response was confirmed. The connector block was attached to the external stimulator unit. The site was covered with a sterile occlusive dressing and a image was taken to document final placement. Upon completion of the procedure the patient was taken outside the OR where she recovered uneventfully.
[2023-06-20 15:19] VITALS: BP 115/76; PULSE 62; RESP 16; TEMP 36.3; O2SAT 99
== END 2023-06-20 15:38 | disposition home or self-care (01) ==
PROVIDERS: PCP Internal Medicine; Visit Provider Anesthesiology
PROC: (CPT 64555; principal; 2023-06-20 15:00)
DX: M47.816 Spondylosis without myelopathy or radiculopathy, lumbar region (principal); G89.4 Chronic pain syndrome; M62.838 Other muscle spasm
CPT/HCPCS: 64555; C1778; J2795

== ENCOUNTER → 2023-06-20 13:27 | Outpatient (BNV) | payer MEDICAID, SELFPAY | PROVIDERS: PCP Internal Medicine; Visit Provider Anesthesiology | DX: M47.816 Spondylosis without myelopathy or radiculopathy, lumbar region (principal); G89.4 Chronic pain syndrome; Z00.00 Encounter for general adult medical examination without abnormal findings | CPT/HCPCS: 64555 ==

== ENCOUNTER 2023-06-27 10:41 | Outpatient (AMB) | payer MEDICAID, SELFPAY ==
--- NOTE | 2023-06-27 10:49 | A.OFFVIS_ITS ---
Intake Vital Signs 06/27/23 10:53 Height 4 ft 11 in Weight 110 lb 2 oz BMI 22.2 BP 107/66 Blood Pressure Location Lt brachial Position Sitting Pulse 68 Pulse Source Pulse Oximeter Pulse Oximetry (%) 98 Oxygen Delivery Method Room Air Intake Visit Reasons: s/p L. L5 Sprint 06/21/23 Intake Note: Pain today of left side 5/10, right side 7/10. Protection Mgr Required: No Accompanied by: Self / Same As Patient Allergies SEAFOOD Allergy (Severe, Uncoded 06/06/23 14:11) ITCHY THROAT shellfish Allergy (Unknown, Uncoded 06/06/23 14:11) ITCHY THROAT HPI HPI Comments History of Present Illness Details Patient presented today 1 week s/p Left L5 Sprint on 06/21/[address] Richardson with good results and ongoing 70% pain relief on the left. She also had Right L5 Sprint on 06/06/23 with ongoing 50% pain relief. Her current settings are 85 left and 89 right with positive paresthesia. She reports some discomfort on the right due to overstimulation and settings were decreased to 85 with better tolerance. Patient reports improvement in her daily activities, social interactions and sleep. The dressing was removed today. Leads insertion sites look clean, dry, intact, no redness, no swelling, no pathological discharge. Area was cleansed with Chloraprep and covered it with gauze and Tegaderm film dressing. Denies any recent cough, cold, infection, fever or other significant changes in medical history since last office visit. PRIOR Dr. Richardson: Rika is in the office today to discuss the results of the right-sided implantation of the sprint PNS, she reports excellent pain relief, she reports better mobility, better activities of daily living better social interactions. She is waiting for completion of the procedure with insertion of the left-sided stimulating device. It is scheduled on 06/20/2023. Follow-up appointment is scheduled in the office for her after that. Dressing changed today: The wound is clean, the position of the electrode is appropriate. There is no pathological discharge. Dressing is changed with ChloraPrep gentle prep around and sterile dressing with Tegaderm. bilateral L3-L4 does ramus L5 medial branch block which was performed for her on 05/21/2023. She reported about 50% pain improvement immediately after procedure. She reported that it lasted up to the end of the day of the procedure. She reported complete elimination of the pain for the next day of the procedure. She was 24 hours free of pain. She slept very well at the end of that day. The pain started to come back only in the morning of the 3rd day after the procedure. And it was not return of the pain to complete full strength. It looks like that the patient does suffer from spondylosis of lumbar spine. I of fered to the patient and explained to her sprint PNS 1st on the right and then on the left. Patient agreed to go for the procedure. She believes that she can obtain light duties for the 1st 8 weeks after the procedure of PNS sprint -the only thing she would require is to provide a letter to her employer about her condition. Prior: very pleasant 32 years old female who is in my office with complains on lower back pain and pain in bilateral trapezius muscles inform us spasms.? She reports her pain as pins and needles numbing sensation stabbing sensation and diet the pain radiates down the left lower extremity to the level of just below her left knee but not below that level.? She reports that she can not sleep normally but she cannot function normally because of her pain.? Is employed full-time.? She reports that heat applications alleviate her pain.? She had physical therapy for her pain with not significant relief.? Long time ago in 2019 she had chiropractic manipulations and she reported only pain aggravations.? She never had any diagnostic studies of her lumbar spine.? No MRI no CT scans were done.? She never had any injections.? 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 Her past surgical history significant for breast mass biopsy and gastric bypass surgery. [facility] Medical History Abnormal uterine bleeding Anemia Arthritis Chronic neck pain Dysplasia of cervix, low grade (BOBBY 1) Fibroadenoma Migraine Obesity Sciatica Surgical History H/O tubal ligation History of lumpectomy of right breast (01/28/20) History of wisdom tooth extraction Hx of gastric bypass Family History Father Asthma Social History Household Members: Children Housing: House Are you a primary career developer to a significant other at home: Yes (children) Do you presently have visiting nurse or other home services: No Alcohol intake: former Patient Tobacco Use Status: Never used Tobacco service: No Current occupational status: employed Current occupation: [employer] /rt handed Female Reproductive History Menstrual Age of Menarche: 8 Review of Systems Const All systems reviewed & are unremarkable except as noted in HPI and below Physical Exam Vital Signs: Last Vital Signs Pulse 68 06/27/23 10:53 BP 107/66 06/27/23 10:53 Pulse Ox 98 06/27/23 10:53 Oxygen Delivery Method Room Air 06/27/23 10:53 BMI result Body Mass Index 22.2 General: Appears afebrile. Alert and oriented. Mood and affect appropriate. Follows and participates in conversation appropriately. Respiratory effort is unlabored. Able to transition from sit to stand unassisted. Ambulates with bilaterally normal heel strike and toe off. Lead Insertion Site: Lead insertion site looks clean, dry, intact. Positive paresthesia around the low back at 85 left and 89 right. Decreased to 85 on the right due to overstimulation. Back/Spine/Pelvis Other: Assessment & Plan Assessment & Plan (1) Spondylosis of lumbar region without myelopathy or radiculopathy: Code(s): M47.816 - Spondylosis without myelopathy or radiculopathy, lumbar region (2) Chronic pain syndrome: Code(s): G89.4 - Chronic pain syndrome (3) Arthropathy of facet joint: Code(s): M47.819 - Spondylosis without myelopathy or radiculopathy, site unspecified Plan Patient is 1 week s/p Left L5 Sprint on 06/21/23 with good results and ongoing 70% pain relief on the left. She also had Right L5 Sprint on 06/06/23 with ongoing 50% pain relief. We adjusted her settings today on the right with decrease to 85 due to overstimulation and this was better tolerated. Dressing change was done in clinic today and both sites are clean, dry, intact. Patient is at work accommodated with minimal physical activity. She works at [employer]. All questions were answered and patient agreed with the plan. Follow up for Sprint removal as scheduled and sooner if needed. Coding Level of Care Code Est Pt Level 4 (85461) Diagnoses Spondylosis of lumbar region without myelopathy or radiculopathy M47.816 Chronic pain syndrome G89.4 Arthropathy of facet joint M47.819
[2023-06-27 10:53] VITALS: BP 107/66; PULSE 68; O2SAT 98; BMI 22.2
== END 2023-06-27 11:11 | disposition home or self-care (01) ==
PROVIDERS: PCP Internal Medicine; Visit Provider Nurse Practitioner Family
DX: M47.816 Spondylosis without myelopathy or radiculopathy, lumbar region (principal); G89.4 Chronic pain syndrome; M47.819 Spondylosis without myelopathy or radiculopathy, site unspecified
CPT/HCPCS: 99214

== ENCOUNTER → 2023-06-27 10:41 | Outpatient (BNVA) | payer MEDICAID, SELFPAY | PROVIDERS: PCP Internal Medicine; Visit Provider Nurse Practitioner Family | DX: M47.816 Spondylosis without myelopathy or radiculopathy, lumbar region (principal); M47.819 Spondylosis without myelopathy or radiculopathy, site unspecified; G89.4 Chronic pain syndrome | CPT/HCPCS: 99214 ==

== ENCOUNTER 2023-07-23 05:20 | Emergency (ER) | payer MEDICAID, SELFPAY ==
--- NOTE | ~2023-07-23 | XR_ITS ---
EXAMINATION: XR CHEST CLINICAL INFORMATION: Chest pain, shortness of breath COMPARISON: 01/07/2018 TECHNIQUE: Frontal view of the chest was obtained. FINDINGS: The lungs are clear with no focal consolidation. No evidence of pneumothorax, pulmonary edema, or pleural effusions. The cardiomediastinal silhouette is unremarkable. No acute osseous findings. XR/XR chest 1V IMPRESSION: No acute cardiopulmonary findings.
--- NOTE | 2023-07-23 05:24 | ECG_ITS ---
Test Reason : chest pain Blood Pressure : / mmHG Vent. Rate : 075 BPM Atrial Rate : 075 BPM P-R Int : 136 ms QRS Dur : 082 ms QT Int : 406 ms P-R-T Axes : 052 061 037 degrees QTc Int : 453 ms Normal sinus rhythm Normal ECG No previous ECGs available Referred By: Generic ED Physician Electronically Signed By:NATALIA MELENDEZ
[2023-07-23 05:32] VITALS: BP 121/86; PULSE 73; RESP 16; TEMP 37.1; O2SAT 100; BMI 17.4
[2023-07-23 05:47] VITALS: PULSE 80
[2023-07-23 05:50] LABS: MANUAL DIFF FLAG NO
[2023-07-23 05:51] LABS: Basophils Percent Auto 0.7 % (0-2); Eosinophils Absolute Auto 0.1 X10*3/uL (0.0-0.4); Eosinophils Percent Auto 1.4 % (0-4); Hematocrit 35.4 % (37.0-47.0); Hemoglobin 12.3 g/dl (12.0-16.0); Imm Gran Abs Auto 0.02 X10*3/uL (0.00-0.03); Imm Gran Pct Auto 0.4 % (0.0-0.4); Lymphocytes Absolute Auto 1.2 X10*3/uL (1.2-4.9); Lymphocytes Percent Auto 21.2 % (20-40); Mean Corpuscular HGB Conc 34.7 g/dl (31.0-35.0); Mean Corpuscular Hemoglobin 29.9 pg (27.0-33.0); Mean Corpuscular Volume 85.9 fL (80.0-98.0); Mean Platelet Volume 8.4 fL (9.4-12.3); Monocytes Absolute Auto 0.5 X10*3/uL (0.1-1.2); Monocytes Percent Auto 8.9 % (2-11); Neutrophils Absolute Auto 3.8 x10*3/uL (2.0-8.3); Neutrophils Percent Auto 67.4 % (45-73); Platelet Count 323 X10*3/uL (160-400); Red Blood Count 4.12 X10*6/uL (4.20-5.50); White Blood Count 5.6 X10*3/uL (4.8-10.8)
[2023-07-23 06:00] LABS: D Dimer High Sensitivity < 150 NG/ML
--- NOTE | 2023-07-23 06:03 | ED.CHESTPAIN ---
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 Pain started 7 days ago, patient was evaluated at walk-in clinic last week for similar symptoms, left-sided chest pain localized to the left side of the chest with no radiation, pain is intermittent last for about 20 minutes then go away, no clear underlying aggravating factor or relieving factors, pain is associated with shortness of breath only when she has the pain, and patient become tremorous when she has the pain. No recent travel, no recent prolonged immobilization, no lower extremity swelling, no history of DVT, no history of PE, no family history of premature . Related Data Home Medications Medication Instructions Recorded Confirmed pkscigm-mtnokptoybvly-vgibgtbr 250 1 tab PO Q4-6H PRN Migraine 04/27/22 06/06/23 mg-250 mg-65 mg tablet (Excedrin Headache Migraine) famotidine 10 mg tablet 10 mg PO DAILY 04/27/22 06/06/23 Allergies Allergy/AdvReac Type Severity Reaction Status Date / Time SEAFOOD Allergy Severe ITCHY Uncoded 06/06/23 14:11 THROAT shellfish Allergy Unknown ITCHY Uncoded 06/06/23 14:11 THROAT Review of Systems Review of Systems: All other systems are reviewed and are negative Constitutional: Reports as per HPI and Reports no additional constitutional complaints Eyes: Reports as per HPI and Reports no additional eye complaints Reports system reviewed and no additional complaints, except as documented Cardiovascular: Reports as per HPI and Reports no additional cardiovascular complaints Respiratory: Reports as per HPI and Reports no additional respiratory complaints Gastrointestinal: Reports as per HPI and Reports no additional gastrointestinal complaints Genitourinary: Reports no additional female genitourinary complaints Musculoskeletal: Reports no additional musculoskeletal complaints Skin/Breast: Reports system reviewed and no additional complaints, except as docu Psychiatric: Reports no additional psychiatric complaints Endocrine: Reports no additional endocrine complaints Hematologic/Lymphatic: Reports no additional hematologic/lymphatic complaints Allergic/Immunologic: Reports no additional allergic/immunologic complaints Reports system reviewed and no additional complaints, except as documented and Reports Abnormal speech present [facility] Past Medical History Medical History Abnormal uterine bleeding Anemia Arthritis Chronic neck pain Dysplasia of cervix, low grade (BOBBY 1) Fibroadenoma Migraine Obesity Sciatica Surgical History H/O tubal ligation History of lumpectomy of right breast (01/28/20) History of wisdom tooth extraction Hx of gastric bypass Family History Family History Father Asthma Social History Social History Household Members: Children Housing: House Are you a primary long term care social worker to a significant other at home: Yes (children) Do you presently have visiting nurse or other home services: No Alcohol intake: never Patient Tobacco Use Status: Never used Tobacco Smoked in Last 30 Days: No Use of substances other than those prescribed or required for medical reasons: No Advance Directives: No Advance Directives Information Provided: Yes Patient : No service: No Current occupational status: employed Current occupation: [employer] /rt handed Physical Exam Vital Signs: Vital Signs: Last Vital Signs Temp 98.8 F 07/23/23 05:32 Pulse 73 07/23/23 05:32 Resp 16 07/23/23 05:32 BP 121/86 07/23/23 05:32 Pulse Ox 100 07/23/23 05:32 O2 Del Method Room Air 07/23/23 05:32 BMI result Body Mass Index 17.4 Vital signs have been reviewed as appeared to be correct. Blood pressure normal. Heart rate normal. Respiration rate normal. Temperature normal. Oxygen saturation normal. Appearance: Alert. Oriented X3. No acute distress. Head: Normal external exam. Normocephalic. Atraumatic. No Wade signs noted. No raccoon eyes noted Eyes: PERRLA. EOMI. Conjunctiva and sclera normal. Eyelids normal. ENT: TM's Normal. Pharynx normal. Uvula midline. Moist mucous membranes. No trismus noted. No drooling noted. No muffled voice noted. Neck: Normal inspection. Neck supple. FROM. No adenopathy. Thyroid Normal. No meningeal signs. No neck mass noted. CVS: Normal heart rate and rhythm. Heart sound normal. No murmurs noted. Pulses normal throughout. Respiratory: No respiratory distress. Painless inspiration. Breath sounds normal. No wheezes/rales/rhonchi noted. Chest nontender. No accessory muscle usage noted or decreased air movement noted. Abdomen: Soft and nontender. Bowel sounds normal in all 4 quadrants. No distention noted. No organomegaly noted. No visible injury noted. Back: No CVA tenderness. Full range of motion noted. Skin: Skin warm and dry. Normal skin color. Normal skin turgor. No rashes/lesions/lacerations noted. Extremities: No lower extremity edema. Extremities exhibit normal range of motion. Extremities nontender. Neuro: Oriented X 3. Cranial nerve exam: II-XII are grossly intact No motor deficit. No sensory deficit. Reflexes normal. Course Course Course Narrative: One week of nonspecific chest pain, HEART score of 0, negative D-dimer with no risk for PE or DVT. Will reassure and follow-up with PCP. Medical Decision Making Differential Diagnosis Differential Diagnoses: The differential diagnosis associated with the presentation includes (ACS, pulmonary embolism, pneumonia, pneumothorax, pleural effusion, electrolyte abnormality, severe anemia, .) Admission/Observation Consideration of admission/observation: Escalation of care including admission/observation considered Lab Data MDM Lab Attestation statement: I reviewed the patient's lab results. 07/23/23 05:44 07/23/23 05:44 Labs: Lab Results 07/23/23 07/23/23 07/23/23 Range/Units 05:43 05:44 05:44 WBC 5.6 (4.8-10.8) X10*3/uL RBC 4.12 L (4.20-5.50) X10*6/uL Hgb 12.3 (12.0-16.0) g/dl Hct 35.4 L (37.0-47.0) % MCV 85.9 (80.0-98.0) fL MCH 29.9 (27.0-33.0) pg MCHC 34.7 (31.0-35.0) g/dl RDW 12.0 (11.0-16.0) % Plt Count 323 (160-400) X10*3/uL MPV 8.4 L (9.4-12.3) fL Immature Gran % (Auto) 0.4 (0.0-0.4) % Neut % (Auto) 67.4 (45-73) % Lymph % (Auto) 21.2 (20-40) % Tillman % (Auto) 8.9 (2-11) % Eos % (Auto) 1.4 (0-4) % Baso % (Auto) 0.7 (0-2) % Lymph # (Auto) 1.2 (1.2-4.9) X10*3/uL Tillman # (Auto) 0.5 (0.1-1.2) X10*3/uL Eos # (Auto) 0.1 (0.0-0.4) X10*3/uL Baso # (Auto) 0.0 (0.0-0.2) X10*3/uL Abs Immat Gran (auto) 0.02 (0.00-0.03) X10*3/uL Absolute Neuts (auto) 3.8 (2.0-8.3) x10*3/uL Absolute Nucleated RBC 0.000 (0.0-0.012) X10*3/uL Nucleated RBC % (auto) 0.0 (0.0-0.2) /100WBC D-Dimer High Sensitivty NG/ML Sodium 139 (135-145) mmol/L Potassium 3.8 (3.3-5.1) mmol/L Chloride 107 (96-108) mmol/L Carbon Dioxide 20 L (22-29) mmol/L Anion Gap 16 (12-20) BUN 10 (9-16) mg/dL Creatinine 0.66 (0.5-1.4) mg/dL Estim Creat Clear Calc 89.7 Estimated GFR > 60 Random Glucose 85 (60-115) mg/dL Calcium 9.6 (8.4-10.2) mg/dL Troponin I High Sens (<3.5-17.0) ng/L Lipase 28 (8-78) U/L Beta HCG, Quant < 2 mIU/mL 07/23/23 07/23/23 Range/Units 05:44 05:45 WBC (4.8-10.8) X10*3/uL RBC (4.20-5.50) X10*6/uL Hgb (12.0-16.0) g/dl Hct (37.0-47.0) % MCV (80.0-98.0) fL MCH (27.0-33.0) pg MCHC (31.0-35.0) g/dl RDW (11.0-16.0) % Plt Count (160-400) X10*3/uL MPV (9.4-12.3) fL Immature Gran % (Auto) (0.0-0.4) % Neut % (Auto) (45-73) % Lymph % (Auto) (20-40) % Tillman % (Auto) (2-11) % Eos % (Auto) (0-4) % Baso % (Auto) (0-2) % Lymph # (Auto) (1.2-4.9) X10*3/uL Tillman # (Auto) (0.1-1.2) X10*3/uL Eos # (Auto) (0.0-0.4) X10*3/uL Baso # (Auto) (0.0-0.2) X10*3/uL Abs Immat Gran (auto) (0.00-0.03) X10*3/uL Absolute Neuts (auto) (2.0-8.3) x10*3/uL Absolute Nucleated RBC (0.0-0.012) X10*3/uL Nucleated RBC % (auto) (0.0-0.2) /100WBC D-Dimer High Sensitivty < 150 NG/ML Sodium (135-145) mmol/L Potassium (3.3-5.1) mmol/L Chloride (96-108) mmol/L Carbon Dioxide (22-29) mmol/L Anion Gap (12-20) BUN (9-16) mg/dL Creatinine (0.5-1.4) mg/dL Estim Creat Clear Calc Estimated GFR Random Glucose (60-115) mg/dL Calcium (8.4-10.2) mg/dL Troponin I High Sens < 2.7 (<3.5-17.0) ng/L Lipase (8-78) U/L Beta HCG, Quant mIU/mL Independent Interpretation I performed an independent interpretation of an: EKG (Normal sinus rhythm at 75 beats per minutes, normal axis deviation, normal intervals, no ST-T changes.) and Plain X-Ray (No acute intrathoracic pathology.) Radiology Impression Discussion of test interpretation with radiology: I have reviewed the radiologist's reading. Scores Heart Score History: -0- slightly suspicious ECG: -0- normal Age: -0- < or = 45 Risk factory: -0- no risk factors known Troponin: -0- < or = normal limit Score: 0 Risk: 1.7% Discharge Plan Discharge Clinical Impression: Atypical chest pain Patient Disposition: Home, Self-Care Instructions: Chest Pain (ED) Prescriptions: No Action famotidine 10 mg Tablet 10 mg PO DAILY Excedrin Migraine 250-250-65 mg Tablet 1 tab PO Q4-6H PRN (Reason: Migraine Headache) Mirena 20 mcg/24 hours (8 yrs) 52 mg intrauterine device 1 device intrauterine ONCE Qty: 1 0RF Referrals: [facility] [Primary Care Provider] -
[2023-07-23 06:08] LABS: Anion Gap 16 (12-20); Blood Urea Nitrogen 10 mg/dL (9-16); Calcium 9.6 mg/dL (8.4-10.2); Carbon Dioxide 20 mmol/L (22-29); Chloride 107 mmol/L (96-108); Creatinine Clr Calc Pharmacy 89.7; Estimated Glomerular Filt Rate > 60; Glucose Random 85 mg/dL (60-115); Lipase 28 U/L (8-78); Potassium 3.8 mmol/L (3.3-5.1); Sodium 139 mmol/L (135-145)
[2023-07-23 06:13] LABS: Troponin-I High Sensitivity < 2.7 ng/L (<3.5-17.0)
[2023-07-23 06:13] LABS: HCG Quantitative < 2 mIU/mL
[2023-07-23 07:15] VITALS: BP 133/70; PULSE 78; RESP 14; O2SAT 100
== END 2023-07-23 07:16 | disposition home or self-care (01) ==
PROVIDERS: Emergency Provider Emergency Medicine
DX: R07.89 Other chest pain (principal); Z79.82 Long term (current) use of aspirin
CPT/HCPCS: 36415; 71045; 80048; 83690; 84484; 84702; 85025; 85379; 93005; 99283; 99284

== ENCOUNTER 2023-08-06 08:56 | Outpatient (AMB) | payer MEDICAID, SELFPAY ==
[2023-08-06 09:08] VITALS: BP 90/62; PULSE 78; BMI 20.7
--- NOTE | 2023-08-06 09:08 | MHC.OFFVIS ---
Intake Vital Signs 08/06/23 09:08 Height 4 ft 11 in Weight 102 lb 11.767 oz BMI 20.7 BP 90/62 Blood Pressure Location Lt brachial Position Sitting Pulse 78 Pulse Source Pulse Oximeter Intake Visit Reasons: follow up per patient Intake Note: f/up per patient pt felling palpitation Training Developer Required: Yes Training Developer Name: [email or web address] [id number] kanchan Allergies SEAFOOD Allergy (Severe, Uncoded 06/06/23 14:11) ITCHY THROAT shellfish Allergy (Unknown, Uncoded 06/06/23 14:11) ITCHY THROAT Medication List - Last Reconciled 08/06/23 by Thais Boyer NP-C ayhdqjy-izdscarjwnmei-mroliuxy 250-250-65 mg (Excedrin Migraine) 1 tab PO Q4-6H PRN escitalopram oxalate 0 mg PO famotidine 10 mg PO DAILY HPI follow up per patient HPI Details Rika who is a 32-year-old female with no cardiac history who has been evaluated for heart palpitations with finding of sinus rhythm and sinus tachycardia presents for follow-up. Today she reports that she notices her heart palpitations at times and now she has tremors of her hands along with it. She does admit to having a newer diagnosis of anxiety and has been started on medication. She does not feel that her medication has started to help yet. She has no dizziness, presyncope, syncope, falls. No chest discomfort at rest or with activity. No shortness of breath, PND, orthopnea or edema. She is taking her meds as directed. 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 [facility] Medical History Abnormal uterine bleeding Anemia Arthritis Chronic neck pain Dysplasia of cervix, low grade (BOBBY 1) Fibroadenoma Migraine Obesity Sciatica Surgical History H/O tubal ligation History of lumpectomy of right breast (01/28/20) History of wisdom tooth extraction Hx of gastric bypass Family History Father Asthma Social History Household Members: Children Housing: House Are you a primary manager primary care to a significant other at home: Yes (children) Do you presently have visiting nurse or other home services: No Alcohol intake: never Patient Tobacco Use Status: Never used Tobacco service: No Current occupational status: employed Current occupation: [employer] /rt handed Female Reproductive History Menstrual Age of Menarche: 8 Review of Systems Const All systems reviewed & are unremarkable except as noted in HPI and below ENT Denies dizziness Card Details: Heart palpitations, tremors of hands Denies chest pain, Denies chest pain at rest, Denies chest pain with activity, Denies rapid heart rate, Denies pedal edema, Denies edema, Denies leg edema, Denies lightheadedness, Denies palpitations, Denies dyspnea, Denies dyspnea on exertion and Denies orthopnea Resp Denies cough, Denies dyspnea and Denies dyspnea on exertion GI Denies hematochezia and Denies change in stool character Musc Denies abnormal gait, Denies limited range of motion, Denies muscle cramps, Denies muscle weakness, Denies numbness, Denies radiating pain into limb, Denies stiffness and Denies tingling Neuro Denies abnormal gait, Denies dizziness, Denies numbness and Denies tingling Endo Denies palpitations Physical Exam Vital Signs: Last Vital Signs Pulse 78 08/06/23 09:08 BP 90/62 08/06/23 09:08 BMI result Body Mass Index 20.7 Const General: cooperative, healthy appearing, comfortable and no acute distress Orientation/consciousness: patient oriented x3 Neck Neck: Yes normal visual inspection and Yes no JVD Carotids: normal carotid upstroke Resp Effort & Inspection: normal respiratory effort Auscultation: clear to auscultation bilaterally, no crackles, no rales, no rhonchi and no wheezes Cardio Jugular venous distension: no JVD Rate: regular rate Rhythm: regular rhythm Heart sounds: S1 normal heart sound present, S2 normal heart sound present, no gallops, no murmurs and no rubs Neuro General: patient oriented x3 Extrem General: Yes normal to inspection Psych Appearance: grossly normal Mental Status: mental status grossly normal Speech and movement: Normal speech and movement present Assessment & Plan Assessment & Plan (1) Palpitations: Code(s): R00.2 - Palpitations Plan: History of heart palpitations described as her heart beating fast. No dizziness, presyncope, syncope. No cardiac history. Thirty day cardiac event monitor started on 11/07/2022 showed sinus rhythm to sinus tach heart palpitation events correlated with sinus rhythm and sinus tach, pulse rate greater than 100 b/ min 32% of the time, rare PACs and PVCs. Echocardiogram done 11/07/2022 showed normal EF, normal valves. Known history of mild anemia. Last TSH 01/04/23 1.18. She continued to report rapid heart palpitations and a 6 day Holter monitor was done on 05/08/2023 showing sinus rhythm with average heart rate 88, rare PACs. Offered reassurance at that time. Today she presents for follow-up stating that she now has tremors of her hands when she gets the heart palpitations. She describes a new diagnosis of anxiety and has been started on medication for this. She does not feel it has helped yet. All test results reviewed and again offered reassurance. She most likely is feeling elevated heart rate in the setting of anxiety, stress. She has planned follow-up with her PCP regarding anxiety and medications. In the past there was concern for possible inappropriate sinus tachycardia however last Holter monitor does not confirm this. Unable to add rate slowing medications as blood pressure runs low at 90 over 62. No indication to use medication at present as heart rate is 78 at this visit. Reviewed need for ongoing reduction in stimulants, good hydration, exercise as tolerated, limit use of Excedrin migraine medication which has caffeine. Cardiology follow-up as needed. (2) Sinus tachycardia: Code(s): R00.0 - Tachycardia, unspecified Coding Level of Care Code Est Pt Level 3 (87166) Diagnoses Palpitations R00.2 Sinus tachycardia R00.0 Time Spent (min) 22 Comment Chart review, documentation, interview, assess
== END 2023-08-06 09:32 | disposition home or self-care (01) ==
PROVIDERS: PCP Internal Medicine; Visit Provider Nurse Practitioner Family
DX: R00.2 Palpitations (principal); R00.0 Tachycardia, unspecified
CPT/HCPCS: 99213

== ENCOUNTER → 2023-08-06 08:56 | Outpatient (BNVA) | payer MEDICAID, SELFPAY | PROVIDERS: PCP Internal Medicine; Visit Provider Nurse Practitioner Family | DX: R00.2 Palpitations (principal); R00.0 Tachycardia, unspecified | CPT/HCPCS: 99212 ==

== ENCOUNTER 2023-08-28 09:54 | Outpatient (AMB) | payer MEDICAID, SELFPAY ==
--- NOTE | 2023-08-28 10:23 | AM.OFFVISNUR ---
Intake Intake Visit Reasons: Sprint Removal R. Side Intake Note: Pt here today for R Sprint lead removal. Pt at this time requested both lumbar leads be removed at the same time as she does not want to have to come back in a week or two for another lead pulll. She states she's currently receiving 3/10 pain relief and is very happy with the results. Sherry interpreting for pt. L lead was removed w/o incidence, R lead was pulled back approx 3 inches when a great resistance was met and I was unable to retract further. I stopped pulling and contacted Atif the Sprint Rep. He encouraged me to try massaging the area and try lightly pulling in the direction it was inserted, which I did, however it was still great resistance and the lead fractured off inside pt. Atif stated this was okay and pt will not be affected by it. Pt is aware via Sherry and states she understands that this should not bother her per Rep Atif, as this happens at times. Site is clean, no redness/swelling/drng noted. Site cleaned again with alcohol wipes and baci/dsd and teg dsg applied. Pt will f/u with Dr. Richardson as needed Allergies SEAFOOD Allergy (Severe, Uncoded 06/06/23 14:11) ITCHY THROAT shellfish Allergy (Unknown, Uncoded 06/06/23 14:11) ITCHY THROAT Nursing Note Pt here today for R Sprint lead removal. Pt at this time requested both lumbar leads be removed at the same time as she does not want to have to come back in a week or two for another lead pulll. She states she's currently receiving 3/10 pain relief and is very happy with the results. Sherry interpreting for pt. L lead was removed w/o incidence, R lead was pulled back approx 3 inches when a great resistance was met and I was unable to retract further. I stopped pulling and contacted Atif the Sprint Rep. He encouraged me to try massaging the area and try lightly pulling in the direction it was inserted, which I did, however it was still great resistance and the lead fractured off inside pt. Atif stated this was okay and pt will not be affected by it. Pt is aware via Sherry and states she understands that this should not bother her per Rep Atif, as this happens at times. Site is clean, no redness/swelling/drng noted. Site cleaned again with alcohol wipes and baci/dsd and teg dsg applied. Pt will f/u with Dr. Richardson as needed Coding Level of Care Code Established Pt Est Pt Level 1 (50989) Patient Type Established Medical Decision Making Straight Forward Diagnoses Arthropathy of facet joint M47.819 Chronic pain syndrome G89.4 Spondylosis of lumbar region without myelopathy or radiculopathy M47.816 Time Spent (min) 20 Assessment & Plan Assessment & Plan (1) Arthropathy of facet joint: Code(s): M47.819 - Spondylosis without myelopathy or radiculopathy, site unspecified (2) Chronic pain syndrome: Code(s): G89.4 - Chronic pain syndrome (3) Spondylosis of lumbar region without myelopathy or radiculopathy: Code(s): M47.816 - Spondylosis without myelopathy or radiculopathy, lumbar region Plan f/u with Dr. Richardson as needed
== END 2023-08-28 10:05 | disposition home or self-care (01) ==
PROVIDERS: PCP Internal Medicine; Visit Provider Anesthesiology
DX: M47.819 Spondylosis without myelopathy or radiculopathy, site unspecified (principal); G89.4 Chronic pain syndrome; M47.816 Spondylosis without myelopathy or radiculopathy, lumbar region

== ENCOUNTER → 2023-08-28 09:54 | Outpatient (BNVA) | payer MEDICAID, SELFPAY | PROVIDERS: PCP Internal Medicine; Visit Provider Anesthesiology | DX: Z45.42 Encounter for adjustment and management of neurostimulator (principal) | CPT/HCPCS: 99211 ==

== ENCOUNTER 2023-09-18 10:13 | Outpatient (AMB) | payer MEDICAID, SELFPAY ==
--- NOTE | 2023-09-18 10:23 | A.OFFVIS_ITS ---
Intake Vital Signs 09/18/23 10:57 Height 4 ft 11 in Weight 111 lb 8 oz BMI 22.5 BP 128/86 Blood Pressure Location Lt brachial Position Sitting Respiration 16 Pulse 81 Pulse Source Pulse Oximeter Pulse Oximetry (%) 95 Oxygen Delivery Method Room Air Intake Visit Reasons: Cervical Pain Intake Note: Patient comes in to discuss cervical pain. She stated that on 08/28/23 her sprint lead was pulled and fractured once she left the office she was experiencing dizziness,nausea, became pale, needed to sit down. Has already happen twice and doesn't know why. Allergies SEAFOOD Allergy (Severe, Uncoded 06/06/23 14:11) ITCHY THROAT shellfish Allergy (Unknown, Uncoded 06/06/23 14:11) ITCHY THROAT HPI HPI Comments History of Present Illness Details Rika is in my office today s/p Left L5 Sprint on 06/21/23 she continues to endorse good to excellent pain relieve will her lower back, better mobility of the back it better activities of daily living. However on the background of improved lower back pain her cervicalgia becomes more aggravated she reports today pain 7 to 8/10. She reports neck stiffness and inability to turn her head sideways. Palpation of the posterior paravertebral as well as midline spinous process projection are very tender. Trapezius muscles medial portions bilaterally also very tender on palpation. Spurling maneuver is negative bilaterally and Lhermitte test is negative as well. Valsalva maneuver is also negative for pain increase. Flexing head backwards aggravate her pain greatly. On physical exam therefore the patient is suffering from spondylosis and arthritis of the cervical spine. We agreed that I will schedule her for diagnostic medial branch block C4-C5 C6. I also will send her for cervical spi ne x-ray multiple views to evaluate the extent of the arthritis and possibly other pathologies. PRIOR Dr. Richardson: Rika is in the office today to discuss the results of the right-sided implantation of the sprint PNS, she reports excellent pain relief, she reports better mobility, better activities of daily living better social interactions. She is waiting for completion of the procedure with insertion of the left-sided stimulating device. It is scheduled on 06/20/2023. Follow-up appointment is scheduled in the office for her after that. Dressing changed today: The wound is clean, the position of the electrode is appropriate. There is no pathological discharge. Dressing is changed with ChloraPrep gentle prep around and sterile dressing with Tegaderm. bilateral L3-L4 does ramus L5 medial branch block which was performed for her on 05/21/2023. She reported about 50% pain improvement immediately after procedure. She reported that it lasted up to the end of the day of the procedure. She reported complete elimination of the pain for the next day of the procedure. She was 24 hours free of pain. She slept very well at the end of that day. The pain started to come back only in the morning of the 3rd day after the procedure. And it was not return of the pain to complete full strength. It looks like that the patient does suffer from spondylosis of lumbar spine. I off ered to the patient and explained to her sprint PNS 1st on the right and then on the left. Patient agreed to go for the procedure. She believes that she can obtain light duties for the 1st 8 weeks after the procedure of PNS sprint -the only thing she would require is to provide a letter to her employer about her condition. Prior: very pleasant 32 years old female who is in my office with complains on lower back pain and pain in bilateral trapezius muscles inform us spasms.? She reports her pain as pins and needles numbing sensation stabbing sensation and diet the pain radiates down the left lower extremity to the level of just below her left knee but not below that level.? She reports that she can not sleep normally but she cannot function normally because of her pain.? Is employed full-time.? She reports that heat applications alleviate her pain.? She had physical therapy for her pain with not significant relief.? Long time ago in 2019 she had chiropractic manipulations and she reported only pain aggravations.? She never had any diagnostic studies of her lumbar spine.? No MRI no CT scans were done.? She never had any injections.? 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 Her past surgical history significant for breast mass biopsy and gastric bypass surgery. [facility] Medical History Abnormal uterine bleeding Anemia Arthritis Chronic neck pain Dysplasia of cervix, low grade (BOBBY 1) Fibroadenoma Migraine Obesity Sciatica Surgical History H/O tubal ligation History of lumpectomy of right breast (01/28/20) History of wisdom tooth extraction Hx of gastric bypass Family History Father Asthma Social History Household Members: Children Housing: House Are you a primary md do resident urgent care to a significant other at home: Yes (children) Do you presently have visiting nurse or other home services: No Alcohol intake: never Patient Tobacco Use Status: Never used Tobacco service: No Current occupational status: employed Current occupation: [employer] /rt handed Female Reproductive History Menstrual Age of Menarche: 8 Review of Systems Const All systems reviewed & are unremarkable except as noted in HPI and below ENT Reports Normal hearing present Neuro Reports Normal hearing present, Denies Abnormal speech present, Denies confusion and Denies Sensory deficit (Neuro) Psych Denies confusion Physical Exam Vital Signs: Last Vital Signs Pulse 81 09/18/23 10:57 Resp 16 09/18/23 10:57 BP 128/86 09/18/23 10:57 Pulse Ox 95 09/18/23 10:57 Oxygen Delivery Method Room Air 09/18/23 10:57 BMI result Body Mass Index 22.5 Const General: no acute distress; No confusion Orientation/consciousness: patient oriented x3 and No confusion Eyes General: appearance normal, both eyes and all related structures Pupils: Equal, round and reactive pupils present EOM: EOMs intact bilaterally Neck Other: Physical exam cervical spine as above Neck: No full ROM Chest Chest palpation & inspection: normal inspection of the chest Resp Effort & Inspection: normal respiratory effort, able to speak in complete sentences, normal respiratory pattern, no audible wheezes and no cough Cardio Jugular venous distension: no JVD GI Inspection: Yes normal to inspection Back/Spine/Pelvis Other: Denies numbness in bilateral lower extremities denies pelvic organ dysfunction. Able to stand on bilateral tiptoes without difficulty. Able to stand on bilateral heels without difficulty. Able to dorsiflex both great toes without difficulty. SLR is negative bilaterally. Dangelo test is negative bilaterally. Stinchfield test is negative bilaterally. Loading test is positive bilaterally. Severe tenderness on palpation in the projection of the most lower portion of the lumbar spine. The tenderness is in paraspinal as well as spinal regions. Flexing forward and flexing backwards both aggravate her pain but flexing backwards aggravates her pain more than flexing forward. Neuro General: patient oriented x3, gait normal and No confusion Cranial nerves: Yes CN's II-XII intact bilaterally, Yes Equal, round and reactive pupils present, Yes Normal hearing present and Yes Ability to bilaterally elevate shoulders present Speech: No Abnormal speech present Gait exam (Neuro): Normal gait present Motor exam (neuro): 5/5 motor strength present throughout Sensory Exam: No Sensory deficit (Neuro) Extrem General: No pedal edema Psych Speech and movement: Normal speech and movement present Affect: normal affect Attitude: cooperative Thought process: Normal thought process present Thought content: Normal thought content present Insight: Good insight present (Psych) Judgement: Good judgement present (Psych) Assessment & Plan Assessment & Plan (1) Spondylosis of lumbar region without myelopathy or radiculopathy: Code(s): M47.816 - Spondylosis without myelopathy or radiculopathy, lumbar region (2) Chronic pain syndrome: Code(s): G89.4 - Chronic pain syndrome (3) Arthropathy of facet joint: Code(s): M47.819 - Spondylosis without myelopathy or radiculopathy, site unspecified (4) Trapezius muscle spasm: Code(s): M62.838 - Other muscle spasm (5) Spondylosis of cervical region without myelopathy or radiculopathy: Code(s): M47.812 - Spondylosis without myelopathy or radiculopathy, cervical region Plan Very impressive results of the diagnostic medial branch block L3-L4 dorsal ramus L5 on 04/20/2023.. Immediately after procedure pain went 50%. She received complete pain relief 100% for the next 24 hours after the day of the procedure. The pain started slowly to come back after that day. Excellent results of PNS bilateral L5 sprint she still endorses excellent pain relieve in the lumbar spine. It has been from June,. However on the background of improved lower back pain her cervicalgia became much aggravated. I will schedule her for diagnostic medial branch block C4-C5-C6 bilateral. This will be done without sedation. If she wants to we may administer 1 pill of alprazolam Xanax for her before the procedure. Orders: Orders XR cervical spine 4V 09/18/23 M47.812 - Spondylosis without myelopathy or radiculopathy, cervical region Patient Instructions: I here by testify that I spent 30 minutes in conversation with this patient as well as planning her care scheduling her studies and organizing her note. Coding Level of Care Code Est Pt Level 4 (98432) Diagnoses Spondylosis of lumbar region without myelopathy or radiculopathy M47.816 Chronic pain syndrome G89.4 Arthropathy of facet joint M47.819 Trapezius muscle spasm M62.838 Spondylosis of cervical region without myelopathy or radiculopathy M47.812
[2023-09-18 10:57] VITALS: BP 128/86; PULSE 81; RESP 16; O2SAT 95; BMI 22.5
== END 2023-09-18 11:19 | disposition home or self-care (01) ==
PROVIDERS: PCP Internal Medicine; Visit Provider Anesthesiology
DX: M47.816 Spondylosis without myelopathy or radiculopathy, lumbar region (principal); G89.4 Chronic pain syndrome; M47.819 Spondylosis without myelopathy or radiculopathy, site unspecified; M62.838 Other muscle spasm; M47.812 Spondylosis without myelopathy or radiculopathy, cervical region
CPT/HCPCS: 99214

== ENCOUNTER 2023-09-18 10:13 | Outpatient (REF) | payer MEDICAID, SELFPAY ==
--- NOTE | ~2023-09-18 | XR_ITS ---
EXAMINATION: XR CERVICAL SPINE CLINICAL INFORMATION: Neck pain COMPARISON: 07/31/2019. TECHNIQUE: 7 views of the cervical spine FINDINGS: Cervical alignment preserved. Cervical vertebral body disc space heights are maintained. Mild spondylosis in the lower cervical spine. Bilateral neural foramina are patent. XR/XR cervical spine 4V IMPRESSION: Mild spondylosis in the lower cervical spine.
== END 2023-09-18 10:14 | disposition home or self-care (01) ==
LOC: HO.XRAY 10:13
PROVIDERS: PCP Internal Medicine; Visit Provider Anesthesiology
DX: M47.812 Spondylosis without myelopathy or radiculopathy, cervical region (principal); M47.816 Spondylosis without myelopathy or radiculopathy, lumbar region; G89.4 Chronic pain syndrome; M62.838 Other muscle spasm
CPT/HCPCS: 72050; 99212

== ENCOUNTER 2023-10-08 06:05 | Outpatient (REF) | payer MEDICAID, SELFPAY ==
--- NOTE | ~2023-10-08 | FL_ITS ---
EXAMINATION: XR FLUOROSCOPY WITH IMAGES CLINICAL INFORMATION: Spondylosis without myelopathy or radiculopathy, cervical region. COMPARISON: None available. TECHNIQUE: Fluoroscopy Supervised By: Dr. Rodrick Richardson. Fluoroscopy Time: 0.5 minutes. Cumulative Dose: 2.16 mGy. DAP: 0.0307 Gycm2. Images: 6. FINDINGS: Images demonstrate needle placement and contrast injection adjacent to the bilateral lateral C3, C4 and C5 vertebrae FL/FL guidance in treatment room IMPRESSION: Fluoroscopic guidance for pain management procedure.
== END 2023-10-08 06:06 | disposition home or self-care (01) ==
LOC: CF 06:05
PROVIDERS: Visit Provider Anesthesiology
DX: M47.812 Spondylosis without myelopathy or radiculopathy, cervical region (principal); M47.816 Spondylosis without myelopathy or radiculopathy, lumbar region; G89.4 Chronic pain syndrome; M62.838 Other muscle spasm
CPT/HCPCS: 64490; 64491; J2795; J3301; Q9967

== ENCOUNTER 2023-10-08 10:35 | Outpatient (AMB) | payer MEDICAID, SELFPAY ==
[2023-10-08 10:39] VITALS: BP 104/60; PULSE 67; RESP 16; O2SAT 100; BMI 22.4
--- NOTE | 2023-10-08 10:39 | A.OFFVIS_ITS ---
Intake Vital Signs 10/08/23 10:39 10/08/23 13:56 10/08/23 13:57 Height 4 ft 11 in 4 ft 11 in Weight 111 lb 111 lb BMI 22.4 22.4 BP 104/60 140/92 H 124/90 H Blood Pressure Location Lt brachial Lt brachial Lt brachial Position Sitting Sitting Sitting Respiration 16 16 Pulse 67 67 Pulse Source Pulse Oximeter Pulse Oximeter Pulse Oximetry (%) 100 97 Oxygen Delivery Method Room Air Room Air Comment pre-op post-op 12:15 pm Intake Visit Reasons: BILATERAL DIAGNOSTIC C4, C5, C6 MBB Allergies SEAFOOD Allergy (Severe, Uncoded 10/02/23 13:08) ITCHY THROAT shellfish Allergy (Unknown, Uncoded 10/02/23 13:08) ITCHY THROAT PFSH Medical History Abnormal uterine bleeding Anemia Arthritis Chronic neck pain Dysplasia of cervix, low grade (BOBBY 1) Fibroadenoma Migraine Obesity Sciatica Surgical History H/O tubal ligation History of lumpectomy of right breast (01/28/20) History of wisdom tooth extraction Hx of gastric bypass Family History Father Asthma Social History Household Members: Children Housing: House Are you a primary home care consultant to a significant other at home: Yes (children) Do you presently have visiting nurse or other home services: No Alcohol intake: never Patient Tobacco Use Status: Never used Tobacco service: No Current occupational status: employed Current occupation: [employer] /rt handed Female Reproductive History Menstrual Age of Menarche: 8 Physical Exam Vital Signs: Last Vital Signs Pulse 67 10/08/23 13:56 Resp 16 10/08/23 13:56 BP 124/90 H 10/08/23 13:57 Pulse Ox 97 10/08/23 13:56 Oxygen Delivery Method Room Air 10/08/23 13:56 BMI result Body Mass Index 22.4 Assessment & Plan Assessment & Plan (1) Spondylosis of lumbar region without myelopathy or radiculopathy: Code(s): M47.816 - Spondylosis without myelopathy or radiculopathy, lumbar region (2) Chronic pain syndrome: Code(s): G89.4 - Chronic pain syndrome (3) Arthropathy of facet joint: Code(s): M47.819 - Spondylosis without myelopathy or radiculopathy, site unspecified (4) Trapezius muscle spasm: Code(s): M62.838 - Other muscle spasm (5) Spondylosis of cervical region without myelopathy or radiculopathy: Code(s): M47.812 - Spondylosis without myelopathy or radiculopathy, cervical region Plan: Diagnostic cervical medial branch block C4-C5 C6. Informed consent was explained to the patient. All questions were explained and answered.? The patient was taken inside the operating room where he was positioned prone on the operating table.? Time-out was performed delineating correct site, side, the nature of the procedure, patient's allergy, preoperative antibiotic if needed.? All operating room staff was participating in OR time-out procedure. The back of the neck and upper thorax were prepped with ChloraPrep and draped with sterile towels.? Sterilely draped C-arm was brought over the operating field and sq picture of? C4- C5- C6 vertebrae were delineated on the screen.? Points of interest were delineated as lateral masses on the left and the right of the vertebrae as above. The waste of each lateral mass was chosen as the target of the tip of the needles on AP view and center of paralelloid delineating the lateral mass on the lateral view was chosen as control of each needle position.?? The projections of the point of interest to the skin were injected with the small amount of local anesthetic lidocaine 2% 1-1.5 cc.? After that 22 gauge 3and 1/2 inch? spinal needles were driven to the point of interest in tunnel vision fashion. After needles gently contacted the bone at the point of interests the needle was injected with small amount of ropivacaine 0.5%-1cc.? Upon completion of the injections the needles were removed and sterile dressings were applied, the patient was taken? outside of the operating room to recovery room where she became complaining on dizziness. Her blood pressure here to be elevated compared to the preoperative baseline. The patient was kept under observation for the next 1 hour. She appears to come to the procedure room driving her own car. We requested that she would call her relatives who would help her to get safely home. Eventually she went home with the relative. Plan Very impressive results of the diagnostic medial branch block L3-L4 dorsal ramus L5 on 04/20/2023.. Immediately after procedure pain went 50%. She received complete pain relief 100% for the next 24 hours after the day of the procedure. The pain started slowly to come back after that day. Excellent results of PNS bilateral L5 sprint she still endorses excellent pain relieve in the lumbar spine. It has been from June,. However on the background of improved lower back pain her cervicalgia became much aggravated. I will schedule her for diagnostic medial branch block C4-C5-C6 bilateral. This will be done without sedation. If she wants to we may administer 1 pill of alprazolam Xanax for her before the procedure. Orders: Orders FL guidance in treatment room 10/08/23 M47.812 - Spondylosis without myelopathy or radiculopathy, cervical region Coding Level of Care Code Procedure Only Diagnoses Spondylosis of lumbar region without myelopathy or radiculopathy M47.816 Chronic pain syndrome G89.4 Arthropathy of facet joint M47.819 Trapezius muscle spasm M62.838 Spondylosis of cervical region without myelopathy or radiculopathy M47.812
[2023-10-08 13:56] VITALS: BP 140/92; PULSE 67; RESP 16; O2SAT 97; BMI 22.4
[2023-10-08 13:57] VITALS: BP 124/90
== END 2023-10-08 12:43 | disposition home or self-care (01) ==
LOC: HO.PMCPRC 10:35
PROVIDERS: PCP Registered Nurse; Visit Provider Anesthesiology
DX: M47.816 Spondylosis without myelopathy or radiculopathy, lumbar region (principal); G89.4 Chronic pain syndrome; M47.819 Spondylosis without myelopathy or radiculopathy, site unspecified; M62.838 Other muscle spasm; M47.812 Spondylosis without myelopathy or radiculopathy, cervical region
CPT/HCPCS: 64490; 64491

== ENCOUNTER → 2023-10-14 10:58 | Outpatient (BNVA) | payer MEDICAID, SELFPAY | PROVIDERS: PCP Registered Nurse; Visit Provider Anesthesiology ==

== ENCOUNTER 2023-10-17 10:21 | Outpatient (AMB) | payer MEDICAID, SELFPAY ==
[2023-10-17 10:31] VITALS: BP 117/56; PULSE 70; RESP 16; O2SAT 99; BMI 22.6
--- NOTE | 2023-10-17 10:31 | A.OFFVIS_ITS ---
Intake Vital Signs 10/17/23 10:31 Height 4 ft 11 in Weight 112 lb BMI 22.6 BP 117/56 L Blood Pressure Location Lt brachial Position Sitting Respiration 16 Pulse 70 Pulse Source Pulse Oximeter Pulse Oximetry (%) 99 Oxygen Delivery Method Room Air Intake Visit Reasons: BILATERAL DIAGNOSTIC C4, C5, C6 MBB/CONF Allergies SEAFOOD Allergy (Severe, Uncoded 10/02/23 13:08) ITCHY THROAT shellfish Allergy (Unknown, Uncoded 10/02/23 13:08) ITCHY THROAT HPI HPI Comments History of Present Illness Details Rika presents back to the office today for follow up 2 days s/p diagnostic C4 C5 C6 MBBs. Patient reports approx 50% pain relief in the hours after the procedure. She states after 1 day the pain then returned to baseline. 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 This worsens her pain but she states only took one day off from work after the procedure and since being back to work pain is more severe. She has completed PT but it did not help. She takes Flexeril when the pain is severe with good effect but it makes her drowsy so tries to avoid taking it. She is not currently taking any NSAIDs for the pain. She endorses pain across her shoulders, tender to palpation across upper and middle trapezius. Prior: Rika is in my office today s/p Left L5 Sprint on 06/21/23 she continues to endorse good to excellent pain relieve will her lower back, better mobility of the back it better activities of daily living. However on the background of improved lower back pain her cervicalgia becomes more aggravated she reports today pain 7 to 8/10. She reports neck stiffness and inability to turn her head sideways. Palpation of the posterior paravertebral as well as midline spinous process projection are very tender. Trapezius muscles medial portions bilaterally also very tender on palpation. Spurling maneuver is negative bilaterally and Lhermitte test is negative as well. Valsalva maneuver is also negative for pain increase. Flexing head backwards aggravate her pain greatly. On physical exam therefore the patient is suffering from spondylosis and arthritis of the cervical spine. We agreed that I will schedule her for diagnostic medial branch block C4-C5 C6. I also will send her for cervical spine x-ray multiple views to evaluate the extent of the arthritis and possibly other pathologies. PRIOR Dr. Richardson: Rika is in the office today to discuss the results of the right-sided implantation of the sprint PNS, she reports excellent pain relief, she reports better mobility, better activities of daily living better social interactions. She is waiting for completion of the procedure with insertion of the left-sided stimulating device. It is scheduled on 06/20/2023. Follow-up appointment is scheduled in the office for her after that. Dressing changed today: The wound is clean, the position of the electrode is appropriate. There is no pathological discharge. Dressing is changed with ChloraPrep gentle prep around and sterile dressing with Tegaderm. bilateral L3-L4 does ramus L5 medial branch block which was performed for her on 05/21/2023. She reported about 50% pain improvement immediately after procedure. She reported that it lasted up to the end of the day of the procedure. She reported complete elimination of the pain for the next day of the procedure. She was 24 hours free of pain. She slept very well at the end of that day. The pain started to come back only in the morning of the 3rd day after the procedure. And it was not return of the pain to complete full strength. It looks like that the patient does suffer from spondylosis of lumbar spine. I offered to the patient and explained to her sprint PNS 1st on the right and then on the left. Patient agreed to go for the procedure. She believes that she can obtain light duties for the 1st 8 weeks after the procedure of PNS sprint -the only thing she would require is to provide a letter to her employer about her condition. Prior: very pleasant 32 years old female who is in my office with complains on lower back pain and pain in bilateral trapezius muscles inform us spasms.? She reports her pain as pins and needles numbing sensation stabbing sensation and diet the pain radiates down the left lower extremity to the level of just below her left knee but not below that level.? She reports that she can not sleep normally but she cannot function normally because of her pain.? Is employed full-time.? She reports that heat applications alleviate her pain.? She had physical therapy for her pain with not significant relief.? Long time ago in 2019 she had chiropractic manipulations and she reported only pain aggravations.? She never had any diagnostic studies of her lumbar spine.? No MRI no CT scans were done.? She never had any injections.? 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 Her past surgical history significant for breast mass biopsy and gastric bypass surgery. [facility] Medical History Abnormal uterine bleeding Anemia Arthritis Chronic neck pain Dysplasia of cervix, low grade (BOBBY 1) Fibroadenoma Migraine Obesity Sciatica Surgical History H/O tubal ligation History of lumpectomy of right breast (01/28/20) History of wisdom tooth extraction Hx of gastric bypass Family History Father Asthma Social History Household Members: Children Housing: House Are you a primary healthcare receptionist to a significant other at home: Yes (children) Do you presently have visiting nurse or other home services: No Alcohol intake: never Patient Tobacco Use Status: Never used Tobacco service: No Current occupational status: employed Current occupation: [employer] /rt handed Female Reproductive History Menstrual Age of Menarche: 8 Review of Systems Const All systems reviewed & are unremarkable except as noted in HPI and below Physical Exam Vital Signs: Last Vital Signs Pulse 70 10/17/23 10:31 Resp 16 10/17/23 10:31 BP 117/56 L 10/17/23 10:31 Pulse Ox 99 10/17/23 10:31 Oxygen Delivery Method Room Air 10/17/23 10:31 BMI result Body Mass Index 22.6 General: awake, alert, oriented. Answers questions appropriately. Fully engaged in examination. Skin: warm, dry, intact HEENT: Normocephalic. Hearing intact. Cardiac: External chest normal in appearance. Respiratory: No cough, audible wheezing or stridor. Abdomen: without gross distension. MS: No obvious swelling or deformities. Tenderness to palpation across upper and middle trapezius muscle Cervical facet loading positive Neurological: Oriented to person, place, time and situation. Thought process intact. No gait abnormalities appreciated. Psychiatric: Appropriate mood and affect. Good judgment and insight. Assessment & Plan Assessment & Plan (1) Trapezius muscle spasm: Code(s): M62.838 - Other muscle spasm (2) Spondylosis of cervical region without myelopathy or radiculopathy: Code(s): M47.812 - Spondylosis without myelopathy or radiculopathy, cervical region (3) Arthropathy of facet joint: Code(s): M47.819 - Spondylosis without myelopathy or radiculopathy, site unspecified (4) Chronic pain syndrome: Code(s): G89.4 - Chronic pain syndrome (5) Spondylosis of lumbar region without myelopathy or radiculopathy: Code(s): M47.816 - Spondylosis without myelopathy or radiculopathy, lumbar region (6) Myofascial neck pain: Code(s): M54.2 - Cervicalgia Plan Rika is a very pleasant 32 year old female who presented to the office today for follow up, 2 days s/p C4 C5 C6 diagnostic MBBs. She reports 50% pain relief in the hours after the procedure with improvement in function and mobility. Pain has since returned, reported today as 8/10. TENS unit ordered for Trapezius muscle strain, myofascial upper back pain. Baclofen 5mg po BID as needed for muscle spasm Diclofenac 3% topical gel apply twice daily as needed Excuse not provided for 1 week Will schedule for Right C5, maybe C4/C6 Sprint PNS with local anesthetic. Plan for Left side to be performed 2 weeks later. All questions and concerns have been answered, follow up after Sprint placement, sooner if needed. Medications: New baclofen 5 mg PO BID PRN 60 tabs 0RF muscle spasm diclofenac sodium 3% apply to most painful area twice daily as needed 1 appl topical BID 100 grams 0RF Coding Level of Care Code Est Pt Level 3 (11878) Diagnoses Trapezius muscle spasm M62.838 Spondylosis of cervical region without myelopathy or radiculopathy M47.812 Arthropathy of facet joint M47.819 Chronic pain syndrome G89.4 Spondylosis of lumbar region without myelopathy or radiculopathy M47.816 Myofascial neck pain M54.2
== END 2023-10-17 10:55 | disposition home or self-care (01) ==
PROVIDERS: PCP Registered Nurse; Visit Provider Registered Nurse Emergency
DX: M62.838 Other muscle spasm (principal); M47.812 Spondylosis without myelopathy or radiculopathy, cervical region; M47.819 Spondylosis without myelopathy or radiculopathy, site unspecified; G89.4 Chronic pain syndrome; M47.816 Spondylosis without myelopathy or radiculopathy, lumbar region; M54.2 Cervicalgia
CPT/HCPCS: 99213

== ENCOUNTER → 2023-10-17 10:21 | Outpatient (BNVA) | payer MEDICAID, SELFPAY | PROVIDERS: PCP Registered Nurse; Visit Provider Registered Nurse Emergency | DX: M62.838 Other muscle spasm (principal); M47.812 Spondylosis without myelopathy or radiculopathy, cervical region; M47.819 Spondylosis without myelopathy or radiculopathy, site unspecified; M47.816 Spondylosis without myelopathy or radiculopathy, lumbar region; M54.2 Cervicalgia; G89.4 Chronic pain syndrome | CPT/HCPCS: 99212 ==

== ENCOUNTER 2023-11-15 08:24 | Day surgery (SDC) | payer MEDICAID, SELFPAY ==
[2023-11-06 13:34] VITALS: BMI 22.6
--- NOTE | 2023-11-07 12:16 | HO.ANESPROP2 ---
Documented by User: Sharri Vaughan NP 11/14/23 09:49 HPI - Anesthesia Eval Consult details Narrative: 33yo F for C5 (Possible C4 or C6) Medial Branch Peripheral Nerve Stimulator PMFSH Active Problems Active Problems: All Active Problems (Updated 10/17/23 @ 10:52 by Rocio Dent, HEAD CHAR FILTER TANK TENDER, FINANCE MANAGER) Myofascial neck pain (Acute) Spondylosis of cervical region without myelopathy or radiculopathy (Acute) Trapezius muscle spasm (Acute) Arthropathy of facet joint (Acute) Chronic pain syndrome (Acute) Spondylosis of lumbar region without myelopathy or radiculopathy (Acute) Sinus tachycardia (Acute) IUD check up (Acute) Palpitations (Acute) Breast mass, right (Acute) Nipple discharge (Acute) Pelvic pain (Acute) Abnormal uterine bleeding (Acute) Well woman exam (Acute) Anemia (Chronic) Knee pain (Acute) Anterior knee pain (Acute) Past Medical History Medical History Arthritis Chronic neck pain Obesity Dysplasia of cervix, low grade (BOBBY 1) Sciatica Abnormal uterine bleeding Fibroadenoma Migraine Anemia Family History Family History Father Asthma Surgical History Surgical History History of wisdom tooth extraction History of lumpectomy of right breast (01/28/20) Hx of gastric bypass H/O tubal ligation Social History Social History Household Members: Children Housing: House Are you a primary skin care technician to a significant other at home: Yes (children) Do you presently have visiting nurse or other home services: No Alcohol intake: never Patient Tobacco Use Status: Never used Tobacco Advance Directives: No Advance Directives Information Provided: Yes service: No Current occupational status: employed Current occupation: [employer] /rt handed Meds Allergies Allergy/AdvReac Type Severity Reaction Status Date / Time SEAFOOD Allergy Severe ITCHY Uncoded 11/15/23 09:29 THROAT shellfish Allergy Unknown ITCHY Uncoded 11/15/23 09:29 THROAT Home Medications Medication Instructions Recorded Confirmed Last Taken Type uhbakaw-wceokjiciypup-mjqepbhu 250 1 tab PO Q4-6H PRN Migraine 04/27/22 10/02/23 Unknown History mg-250 mg-65 mg tablet (Excedrin Headache Migraine) famotidine 10 mg tablet 10 mg PO DAILY 04/27/22 11/15/23 11/15/23 History escitalopram oxalate 5 mg tablet 5 mg PO DAILY 09/18/23 10/02/23 Unknown History (Lexapro) mirtazapine 15 mg tablet (Remeron) 15 mg PO BEDTIME 09/18/23 10/02/23 Unknown History Exam Height,Weight and Vital Signs: Height 4 ft 11 in Weight 50.802 kg Pertinent Lab Results Pertinent Lab Results: Laboratory Tests 07/23/23 07/23/23 10/02/23 05:44 05:44 13:07 WBC Hgb 11.3 L Hct 33.4 L Plt Count 283 Sodium 139 Potassium 3.8 Chloride 107 Carbon Dioxide 20 L BUN 10 Creatinine 0.66 10/02/23 13:07 WBC 6.7 Hgb Hct Plt Count Sodium Potassium Chloride Carbon Dioxide BUN Creatinine Narrative Narrative: EKG 07/2023 Vent. Rate : 075 BPM Atrial Rate : 075 BPM P-R Int : 136 ms QRS Dur : 082 ms QT Int : 406 ms P-R-T Axes : 052 061 037 degrees QTc Int : 453 ms Normal sinus rhythm Normal ECG No previous ECGs available Assessment and Plan Assessment Anesthesia Assessment: Chart Reviewed Documented by User: Tabitha Ramirez MD 11/15/23 10:39 HPI - Anesthesia Eval Consult details Narrative: 33yo F for C5 (Possible C4 or C6) Medial Branch Peripheral Nerve Stimulator Patient noted on arrival to be chewing gum. Was about to have candy but was stopped. PMFSH Active Problems Active Problems: All Active Problems (Updated 11/15/23 @ 09:23 by Tabitha Ramirez MD ) Myofascial neck pain (Acute) Spondylosis of cervical region without myelopathy or radiculopathy (Acute) Trapezius muscle spasm (Acute) Arthropathy of facet joint (Acute) Chronic pain syndrome (Acute) Spondylosis of lumbar region without myelopathy or radiculopathy (Acute) Sinus tachycardia (Acute) IUD check up (Acute) Palpitations (Acute) Breast mass, right (Acute) Nipple discharge (Acute) Pelvic pain (Acute) Abnormal uterine bleeding (Acute) Well woman exam (Acute) Anemia (Chronic) Knee pain (Acute) Anterior knee pain (Acute) Past Medical History Medical History Arthritis Chronic neck pain Obesity Dysplasia of cervix, low grade (BOBBY 1) Sciatica Abnormal uterine bleeding Fibroadenoma Migraine Anemia Family History Family History Father Asthma Family history of problems with anesthesia: No Surgical History Surgical History History of wisdom tooth extraction History of lumpectomy of right breast (01/28/20) Hx of gastric bypass H/O tubal ligation History of Problems with Anesthesia: No Social History Social History Household Members: Children Housing: House Are you a primary skin care technician to a significant other at home: Yes (children) Do you presently have visiting nurse or other home services: No Alcohol intake: never Patient Tobacco Use Status: Never used Tobacco Advance Directives: No Advance Directives Information Provided: Yes service: No Current occupational status: employed Current occupation: [employer]rt handed Meds Allergies Allergy/AdvReac Type Severity Reaction Status Date / Time SEAFOOD Allergy Severe ITCHY Uncoded 11/15/23 09:29 THROAT shellfish Allergy Unknown ITCHY Uncoded 11/15/23 09:29 THROAT Home Medications Medication Instructions Recorded Confirmed Last Taken Type kvdzuhh-gmqsolwfbftdb-erntnmpr 250 1 tab PO Q4-6H PRN Migraine 04/27/22 10/02/23 Unknown History mg-250 mg-65 mg tablet (Excedrin Headache Migraine) famotidine 10 mg tablet 10 mg PO DAILY 04/27/22 11/15/23 11/15/23 History escitalopram oxalate 5 mg tablet 5 mg PO DAILY 09/18/23 10/02/23 Unknown History (Lexapro) mirtazapine 15 mg tablet (Remeron) 15 mg PO BEDTIME 09/18/23 10/02/23 Unknown History Exam Height,Weight and Vital Signs: Height 4 ft 11 in Weight 50.802 kg Vital Signs Temp Pulse Resp BP Pulse Ox O2 Del Method 11/15/23 09:41 97.8 F 80 16 97/60 98 Room Air Airway Mallampati Class: II TM Dist: >3cm Neck ROM: Limited (from pain but extension ok) Loose/Missing/Broken Teeth: No (Denies broken, loose, missing teeth) Heart: RRR Lungs: CTAB Assessment and Plan Assessment Anesthesia Assessment: Anesthesia Plan Discussed Final Anesthetic Review Family History of Problems with Anesthesia: No History of Problems with Anesthesia: No NPO: No (Chewing gum o/a @8:25am. Asked to spit out) ASA Class: II Final Preanesthetic Review: No Changes in Pt Med Stat, Meds/Allgs Chart Reviewed, Consent Obtained/Reviewed and Anes Risks/Benef Reviewed Patient Risk: Low Procedure Risk: Low Assessment/Block/Sedation in SS: Assess/Block/Sedation-SS Anesthetic Plan Anesthetic Plan: MAC: Disposition: Standard PACU
[2023-11-13 11:43] VITALS: BMI 22.6
--- NOTE | ~2023-11-15 | FL_ITS ---
EXAMINATION: XR FLUOROSCOPY WITH IMAGES CLINICAL INFORMATION: Cervical SPRINT placement, right side. COMPARISON: None available. TECHNIQUE: Fluoroscopy Supervised By: Dr. Rodrick Richardson. Fluoroscopy Time: 0.1 minute. Cumulative Dose: 0.451 mGy. DAP: 0.122 Gycm2. Images: 1. FINDINGS: Image demonstrates lead projecting over the right lower cervical spine FL/FL guidance in OR IMPRESSION: Fluoroscopic guidance for pain management.
[2023-11-15 09:20] VITALS: BMI 24.2
[2023-11-15 09:41] VITALS: BP 97/60; PULSE 80; RESP 16; TEMP 36.6; O2SAT 98
[2023-11-15] MEDS: Lactated Ringers 1,000 ML 100 ML IVCONT (09:43)
--- NOTE | 2023-11-15 09:50 | P.HPSUR_ITS ---
Pre-Procedural Eval Section A Date of Service: 11/15/23 Changes since office visit: Yes Patient answered all questions The History & Physical has been completed within 30 days and I have reviewed it.: No Section B Chief Complaint: Spondylosis without myelopathy or radiculopathy Details of Present Illness: as above Relevant Family History (Specify if Yes): No Relevant Social History: None Present Medications: see Short Stay Collaborative assessment Medical History: No relevant PMH History of Previous Operations: No relevant previous surgery Allergies: Allergies Allergy/AdvReac Type Severity Reaction Status Date / Time SEAFOOD Allergy Severe ITCHY Uncoded 11/15/23 09:29 THROAT shellfish Allergy Unknown ITCHY Uncoded 11/15/23 09:29 THROAT Review of Systems Sugical H&P ROS: Negative: Constitution, Cardiovascular, Respiratory, Neurological, Psychiatric, Hem-Onc, Allergic/Immunologic, Gastrointestinal, Genitourinary, Musculoskeletal, Integumentary, Endocrine and Eye s/Ears/Nose/Throat Exam Surgical H&P Exam: Normal: HEENT, Normal: Heart, Normal: Lungs, Normal: Extremities, Normal: Abdomen, Normal: Skin and Normal: Neurological Plan Diagnosis/Plan: Unchanged I have reviewed the history and physical and performed a pertinent physical examination on my patient. No changes have occurred unless specified. Time Spent With Patient Time: Total time managing care of this patient today ____ minutes.
--- NOTE | 2023-11-15 10:20 | PC.NURSE ---
Dr. Vaughn aware of pt chewing gum this AM at 0600. Ok to proceed with planned procedure.
--- NOTE | 2023-11-15 10:21 | W.PM.OPN ---
Operative Note Operative Note Date of Service: 11/15/23 Narrative: Percutaneous implantation of peripheral nerve stimulation Sprint system right C5 . After the risks, benefits and alternatives were discussed with the patient and informed consent was obtained, patient was placed in the prone position and padded to foster comfort. Time out was performed delineating correct site and side of the procedure , name and of the patient, patient participated in time out procedure. [place] [employer] monitors were applied and patient was minimally sedated. She was able to maintain conversation throughout the case. We used the hospital employed cardiac catheterization technician to maintain the conversation. Sterily draped C-arm was brought over the operating field and clear picture of the C5 lamina on the right was delineated on the screen. The upper central portion of the lamina was chosen as a target of the needle tip insertion . The entrance point was chosen as the to levels away projection of the right C7 lamina to the skin.After identifying and marking the intended target, the skin around the planned entry point and the subcutaneous tissues were injected with local anesthetic forming skin wheal.. A percutaneous sleeve and stimulating probe lead introduction system were assembled, inserted and advanced through the skin wheal to the point of interest under C-arm view in acute angle to the target from the points cephalad direction, the introducer needle was delivered to a location in proximity to the nerve. Multiple stimulation parameters were used to deliver stimulation to the nerve in concert with stimulating at multiple positions around the nerve. Here nerve target acquisition was confirmed noting generation of in the corresponding to the nerve being stimulated. Various electrical parameter combinations were tested, and the lead location was adjusted (physically relocated) until the patient indicated overlapping the distribution of the patient?s typical region of pain. The stimulating probe was removed from the introducer and a percutaneous lead was guided through the needle and delivered to a location in similar proximity to the nerve. Final location was verified with electrical stimulation. The introducer needle was removed, and the exposed end of the percutaneous lead was attached to an external stimulator unit. At the end of the case various electrical parameter combinations were again tested until the patient indicated paresthesia or muscle tension overlapping the distribution of the patient?s typical region of pain. After confirming that lead impedance was in the normal range, the external unit was detached, the needle was removed, and the lead was anchored at the skin. The lead was threaded into the connector block and electrical continuity and desired patient response was confirmed. The connector block was attached to the external stimulator unit. The site was covered with a sterile occlusive dressing and a image was taken to document final placement. Upon completion of the procedure the patient was taken outside the OR where she recovered uneventfully.
--- NOTE | 2023-11-15 10:23 | PM.OP ---
Brief Operative Note Date of Service: 11/15/23 Pre-op diagnosis: spondylosis cervical spine without myelopathy or radiculopathy Post-op diagnosis: same Procedure: sprint PNS C5 cervical Implants: None permanent Surgeon: Rodrick Richardson MD Anesthesia: MAC Was an Computer Technical Support Specialist used for this Procedure?: No Estimated blood loss (mL): 1 Condition: stable Disposition: PACU
[2023-11-15 11:00] VITALS: BP 90/57; PULSE 71; RESP 16; TEMP 37.1; O2SAT 99
[2023-11-15 11:15] VITALS: BP 98/67; PULSE 75; RESP 16; O2SAT 99
[2023-11-15 11:30] VITALS: BP 100/70; PULSE 84; RESP 16; TEMP 37.2; O2SAT 100
== END 2023-11-15 11:45 | disposition home or self-care (01) ==
PROVIDERS: PCP Registered Nurse; Visit Provider Anesthesiology
PROC: (CPT 64555; principal; 2023-11-15 10:00)
DX: M47.816 Spondylosis without myelopathy or radiculopathy, lumbar region (principal); G89.4 Chronic pain syndrome; M54.50 Low back pain, unspecified; M62.838 Other muscle spasm; M47.812 Spondylosis without myelopathy or radiculopathy, cervical region; M54.2 Cervicalgia; D24.9 Benign neoplasm of unspecified breast; D64.9 Anemia, unspecified; M54.30 Sciatica, unspecified side; R00.2 Palpitations; Z79.82 Long term (current) use of aspirin; Z79.899 Other long term (current) drug therapy; Z98.84 Bariatric surgery status
CPT/HCPCS: 64555; C1778; J2250; J2795

== ENCOUNTER → 2023-11-15 08:24 | Outpatient (BNV) | payer MEDICAID, SELFPAY | PROVIDERS: PCP Registered Nurse; Visit Provider Anesthesiology | DX: M47.818 Spondylosis without myelopathy or radiculopathy, sacral and sacrococcygeal region (principal) | CPT/HCPCS: 64555 ==

== ENCOUNTER 2023-11-20 14:24 | Outpatient (AMB) | payer MEDICAID, SELFPAY ==
--- NOTE | 2023-11-20 14:29 | MHC.OFFVIS ---
Intake Vital Signs 11/20/23 14:40 Height 4 ft 11 in Weight 129 lb 4 oz BMI 26.1 BP 89/56 L Blood Pressure Location Lt brachial Position Sitting Respiration 16 Pulse 77 Pulse Source Pulse Oximeter Pulse Oximetry (%) 97 Oxygen Delivery Method Room Air Intake Visit Reasons: S/p (R) C5 (Poss C4 or C6) MB SPRINT 11/15/23 Intake Note: Dressing was changed no redness/drainage/swelling at site.?Site cleaned with alcohol prep pad, and new dsd/tega applied. Allergies SEAFOOD Allergy (Severe, Uncoded 11/15/23 09:29) ITCHY THROAT shellfish Allergy (Unknown, Uncoded 11/15/23 09:29) ITCHY THROAT HPI HPI Comments History of Present Illness Details Rika is back in my office after implantation of right-sided sprint C5 with complaints on stimulation being too strong. She reported that she feel stimulation radiating down to her right arm. When she was asked whether she feels stimulation when amplitude in intensity of the stimulation in the neck decreases she said that did the sensation in the arm disappears. I recommended her to keep stimulation in lower threshold not to perform any vigorous movements of the neck which could potentially result in migration of the electrode. The patient understood. The dressing was changed today. She was recommended to give us a call if any new changes would occur with her device. Today during the conversation I received help from [place] certified carton inspector Marylin. Jyoti she received diagnostic medial branch block with very good results as they were described below. Prior: Rika is in my office today s/p Left L5 Sprint on 06/21/23 she continues to endorse good to excellent pain relieve will her lower back, better mobility of the back it better activities of daily living. However on the background of improved lower back pain her cervicalgia becomes more aggravated she reports today pain 7 to 8/10. She reports neck stiffness and inability to turn her head sideways. Palpation of the posterior paravertebral as well as midline spinous process projection are very tender. Trapezius muscles medial portions bilaterally also very tender on palpation. Spurling maneuver is negative bilaterally and Lhermitte test is negative as well. Valsalva maneuver is also negative for pain increase. Flexing head backwards aggravate her pain greatly. On physical exam therefore the patient is suffering from spondylosis and arthritis of the cervical spine. We agreed that I will schedule her for diagnostic medial branch block C4-C5 C6. I also will send her for cervical spine x-ray multiple views to evaluate the extent of the arthritis and possibly other pathologies. PRIOR Dr. Richardson: Rika is in the office today to discuss the results of the right-sided implantation of the sprint PNS, she reports excellent pain relief, she reports better mobility, better activities of daily living better social interactions. She is waiting for completion of the procedure with insertion of the left-sided stimulating device. It is scheduled on 06/20/2023. Follow-up appointment is scheduled in the office for her after that. Dressing changed today: The wound is clean, the position of the electrode is appropriate. There is no pathological discharge. Dressing is changed with ChloraPrep gentle prep around and sterile dressing with Tegaderm. bilateral L3-L4 does ramus L5 medial branch block which was performed for her on 05/21/2023. She reported about 50% pain improvement immediately after procedure. She reported that it lasted up to the end of the day of the procedure. She reported complete elimination of the pain for the next day of the procedure. She was 24 hours free of pain. She slept very well at the end of that day. The pain started to come back only in the morning of the 3rd day after the procedure. And it was not return of the pain to complete full strength. It looks like that the patient does suffer from spondylosis of lumbar spine. I offered to the patient and explained to her sprint PNS 1st on the right and then on the left. Patient agreed to go for the procedure. She believes that she can obtain light duties for the 1st 8 weeks after the procedure of PNS sprint -the only thing she would require is to provide a letter to her employer about her condition. Prior: very pleasant 32 years old female who is in my office with complains on lower back pain and pain in bilateral trapezius muscles inform us spasms.? She reports her pain as pins and needles numbing sensation stabbing sensation and diet the pain radiates down the left lower extremity to the level of just below her left knee but not below that level.? She reports that she can not sleep normally but she cannot function normally because of her pain.? Is employed full-time.? She reports that heat applications alleviate her pain.? She had physical therapy for her pain with not significant relief.? Long time ago in 2019 she had chiropractic manipulations and she reported only pain aggravations.? She never had any diagnostic studies of her lumbar spine.? No MRI no CT scans were done.? She never had any injections.? Her past medical history is significant for headaches migraines, she has heart palpitation tachycardia she is under care of quality control technician with this condition she has anemia.? Her past surgical history significant for breast mass biopsy and gastric bypass surgery. [facility] Medical History Arthritis Chronic neck pain Obesity Dysplasia of cervix, low grade (BOBBY 1) Sciatica Abnormal uterine bleeding Fibroadenoma Migraine Anemia Surgical History History of wisdom tooth extraction History of lumpectomy of right breast (01/28/20) Hx of gastric bypass H/O tubal ligation Family History Father Asthma Social History Household Members: Children Housing: House Are you a primary manager home healthcare to a significant other at home: Yes (children) Do you presently have visiting nurse or other home services: No Alcohol intake: never Patient Tobacco Use Status: Never used Tobacco service: No Current occupational status: employed Current occupation: [employer] /rt handed Female Reproductive History Menstrual Age of Menarche: 8 Review of Systems Const All systems reviewed & are unremarkable except as noted in HPI and below ENT Reports Normal hearing present Neuro Reports Normal hearing present, Denies Abnormal speech present, Denies confusion and Denies Sensory deficit (Neuro) Psych Denies confusion Physical Exam Vital Signs: Last Vital Signs Pulse 77 11/20/23 14:40 Resp 16 11/20/23 14:40 BP 89/56 L 11/20/23 14:40 Pulse Ox 97 11/20/23 14:40 Oxygen Delivery Method Room Air 11/20/23 14:40 BMI result Body Mass Index 26.1 Const General: no acute distress; No confusion Orientation/consciousness: patient oriented x3 and No confusion Eyes General: appearance normal, both eyes and all related structures Pupils: Equal, round and reactive pupils present EOM: EOMs intact bilaterally Neck Other: Normal strength of bilateral upper extremities right compared to the left. She denies numbness in bilateral upper extremities. She denies headache. Valsalva maneuver does not aggravate her pain. Neck: No full ROM Chest Chest palpation & inspection: normal inspection of the chest Resp Effort & Inspection: normal respiratory effort, able to speak in complete sentences, normal respiratory pattern, no audible wheezes and no cough Cardio Jugular venous distension: no JVD GI Inspection: Yes normal to inspection Neuro General: patient oriented x3, gait normal and No confusion Cranial nerves: Yes CN's II-XII intact bilaterally, Yes Equal, round and reactive pupils present, Yes Normal hearing present and Yes Ability to bilaterally elevate shoulders present Speech: No Abnormal speech present Gait exam (Neuro): Normal gait present Motor exam (neuro): 5/5 motor strength present throughout Sensory Exam: No Sensory deficit (Neuro) Extrem General: No pedal edema Psych Speech and movement: Normal speech and movement present Affect: normal affect Attitude: cooperative Thought process: Normal thought process present Thought content: Normal thought content present Insight: Good insight present (Psych) Judgement: Good judgement present (Psych) Assessment & Plan Assessment & Plan (1) Spondylosis of cervical region without myelopathy or radiculopathy: Code(s): M47.812 - Spondylosis without myelopathy or radiculopathy, cervical region (2) Arthropathy of facet joint: Code(s): M47.819 - Spondylosis without myelopathy or radiculopathy, site unspecified (3) Chronic pain syndrome: Code(s): G89.4 - Chronic pain syndrome (4) Myofascial neck pain: Code(s): M54.2 - Cervicalgia Plan The patient is in the office today 1 week after insertion of the Sprint PNS at the C5 position at the right lamina.C/o stimulations sensation spreading down the right upper extremity with increased intensity of the stimulation. Unfortunately despite my recommendations to save final image of the electrode position it was not saved, Radiology will try to recover the image and included into the set of images related to this case. Meanwhile I will invited this patient to meet [facility] policy services representative tomorrow 11/22/2023 08:00 to discuss the stimulation and her sensations. Patient Instructions: I here by testify that I spent 35 minutes in conversation with this patient, as well as evaluating her images, as well as speaking with Radiology about the images, as well as organizing this note. Coding Level of Care Code Est Pt Level 4 (73484) Diagnoses Spondylosis of cervical region without myelopathy or radiculopathy M47.812 Arthropathy of facet joint M47.819 Chronic pain syndrome G89.4 Myofascial neck pain M54.2
[2023-11-20 14:40] VITALS: BP 89/56; PULSE 77; RESP 16; O2SAT 97; BMI 26.1
== END 2023-11-20 14:50 | disposition home or self-care (01) ==
PROVIDERS: PCP Registered Nurse; Visit Provider Anesthesiology
DX: M47.812 Spondylosis without myelopathy or radiculopathy, cervical region (principal); M47.819 Spondylosis without myelopathy or radiculopathy, site unspecified; G89.4 Chronic pain syndrome; M54.2 Cervicalgia
CPT/HCPCS: 99024

== ENCOUNTER → 2023-11-20 14:24 | Outpatient (BNVA) | payer MEDICAID, SELFPAY | PROVIDERS: PCP Registered Nurse; Visit Provider Anesthesiology | DX: M47.812 Spondylosis without myelopathy or radiculopathy, cervical region (principal); M47.819 Spondylosis without myelopathy or radiculopathy, site unspecified; M54.2 Cervicalgia; G89.4 Chronic pain syndrome | CPT/HCPCS: 99212 ==

== ENCOUNTER → 2023-11-22 11:22 | Outpatient (BNVA) | payer MEDICAID, SELFPAY | PROVIDERS: PCP Registered Nurse; Visit Provider Internal Medicine | DX: Z45.49 Encounter for adjustment and management of other implanted nervous system device (principal) | CPT/HCPCS: 99211 ==

== ENCOUNTER 2023-11-26 13:56 | Outpatient (REF) | payer MEDICAID, SELFPAY ==
[2023-11-26 14:04] LABS: MANUAL DIFF FLAG NO
[2023-11-26 14:47] LABS: Basophils Absolute Auto 0.1 X10*3/uL (0.0-0.2); Basophils Percent Auto 0.6 % (0-2); Eosinophils Absolute Auto 0.1 X10*3/uL (0.0-0.4); Eosinophils Percent Auto 1.4 % (0-4); Hematocrit 34.5 % (37.0-47.0); Hemoglobin 11.3 g/dl (12.0-16.0); Imm Gran Abs Auto 0.03 X10*3/uL (0.00-0.03); Imm Gran Pct Auto 0.4 % (0.0-0.4); Lymphocytes Percent Auto 24.3 % (20-40); Mean Corpuscular HGB Conc 32.8 g/dl (31.0-35.0); Mean Corpuscular Volume 91.5 fL (80.0-98.0); Mean Platelet Volume 9.3 fL (9.4-12.3); Monocytes Absolute Auto 0.7 X10*3/uL (0.1-1.2); Monocytes Percent Auto 8.4 % (2-11); Neutrophils Absolute Auto 5.4 x10*3/uL (2.0-8.3); Neutrophils Percent Auto 64.9 % (45-73); Platelet Count 313 X10*3/uL (160-400); Red Blood Count 3.77 X10*6/uL (4.20-5.50); Red Cell Distribution Width 12.7 % (11.0-16.0); White Blood Count 8.4 X10*3/uL (4.8-10.8)
== END 2023-11-26 13:57 | disposition home or self-care (01) ==
LOC: HO.LAB 13:56
PROVIDERS: PCP Registered Nurse; Visit Provider Anesthesiology
DX: M47.812 Spondylosis without myelopathy or radiculopathy, cervical region (principal)
CPT/HCPCS: 36415; 85025

== ENCOUNTER 2023-11-28 10:44 | Outpatient (AMB) | payer MEDICAID, SELFPAY ==
--- NOTE | 2023-11-28 10:45 | A.OFFVIS_ITS ---
Intake Intake Visit Reasons: Per /Confirmed Allergies SEAFOOD Allergy (Severe, Uncoded 11/15/23 09:29) ITCHY THROAT shellfish Allergy (Unknown, Uncoded 11/15/23 09:29) ITCHY THROAT HPI HPI Comments History of Present Illness Details Rika is on the phone with me today to discuss further management. I believe that migration of the lead caused significant discomfort with radiation into the right UE, she experienced postprocedure lead migration. She is asking me if repeat of the diagnostic injection will give her any substantial pain relieve. I explained her that we can perform the procedure as a therapeutoic C4- C5-C6 bilateral medial branch block with steroids and this potentially will result in pain aleviation for up to 4-6 months. Prior: implantation of right-sided sprint C5 with complaints on stimulation being too strong,l stimulation radiated down to her right . Today during the conversation I received help from [place] certified corrections caseworker Marylin. she received diagnostic medial branch block with very good results as they were described below. Prior: Rika is in my office today s/p Left L5 Sprint on 06/21/23 she continues to endorse good to excellent pain relieve will her lower back, better mobility of the back it better activities of daily living. However on the background of improved lower back pain her cervicalgia becomes more aggravated she reports today pain 7 to 8/10. She reports neck stiffness and inability to turn her head sideways. Palpation of the posterior paravertebral as well as midline spinous process projection are very tender. Trapezius muscles medial portions bilaterally also very tender on palpation. Spurling maneuver is negative bilaterally and Lhermitte test is negative as well. Valsalva maneuver is also negative for pain increase. Flexing head backwards aggravate her pain greatly. On physical exam therefore the patient is suffering from spondylosis and arthritis of the cervical spine. We agreed that I will schedule her for diagnostic medial branch block C4-C5 C6. I also will send her for cervical spine x-ray multiple views to evaluate the extent of the arthritis and possibly other pathologies. PRIOR Dr. Richardson: Rika is in the office today to discuss the results of the right-sided implantation of the sprint PNS, she reports excellent pain relief, she reports better mobility, better activities of daily living better social interactions. She is waiting for completion of the procedure with insertion of the left-sided stimulating device. It is scheduled on 06/20/2023. Follow-up appointment is scheduled in the office for her after that. Dressing changed today: The wound is clean, the position of the electrode is appropriate. There is no pathological discharge. Dressing is changed with ChloraPrep gentle prep around and sterile dressing with Tegaderm. bilateral L3-L4 does ramus L5 medial branch block which was performed for her on 05/21/2023. She reported about 50% pain improvement immediately after procedure. She reported that it lasted up to the end of the day of the procedure. She reported complete elimination of the pain for the next day of the procedure. She was 24 hours free of pain. She slept very well at the end of that day. The pain started to come back only in the morning of the 3rd day after the procedure. And it was not return of the pain to complete full strength. It looks like that the patient does suffer from spondylosis of lumbar spine. I offered to the patient and explained to her sprint PNS 1st on the right and then on the left. Patient agreed to go for the procedure. She believes that she can obtain light duties for the 1st 8 weeks after the procedure of PNS sprint -the only thing she would require is to provide a letter to her employer about her condition. Prior: very pleasant 32 years old female who is in my office with complains on lower back pain and pain in bilateral trapezius muscles inform us spasms.? She reports her pain as pins and needles numbing sensation stabbing sensation and diet the pain radiates down the left lower extremity to the level of just below her left knee but not below that level.? She reports that she can not sleep normally but she cannot function normally because of her pain.? Is employed full-time.? She reports that heat applications alleviate her pain.? She had physical therapy for her pain with not significant relief.? Long time ago in 2019 she had chiropractic manipulations and she reported only pain aggravations.? She never had any diagnostic studies of her lumbar spine.? No MRI no CT scans were done.? She never had any injections.? Her past medical history is significant for headaches migraines, she has heart palpitation tachycardia she is under care of cna hha with this condition she has anemia.? Her past surgical history significant for breast mass biopsy and gastric bypass surgery. [facility] Medical History Arthritis Chronic neck pain Obesity Dysplasia of cervix, low grade (BOBBY 1) Sciatica Abnormal uterine bleeding Fibroadenoma Migraine Anemia Surgical History History of wisdom tooth extraction History of lumpectomy of right breast (01/28/20) Hx of gastric bypass H/O tubal ligation Family History Father Asthma Social History Household Members: Children Housing: House Are you a primary day care assistant to a significant other at home: Yes (children) Do you presently have visiting nurse or other home services: No Alcohol intake: never Patient Tobacco Use Status: Never used Tobacco service: No Current occupational status: employed Current occupation: [employer] /rt handed Female Reproductive History Menstrual Age of Menarche: 8 Review of Systems Const All systems reviewed & are unremarkable except as noted in HPI and below Assessment & Plan Assessment & Plan (1) Spondylosis of cervical region without myelopathy or radiculopathy: Code(s): M47.812 - Spondylosis without myelopathy or radiculopathy, cervical region (2) Arthropathy of facet joint: Code(s): M47.819 - Spondylosis without myelopathy or radiculopathy, site unspecified (3) Chronic pain syndrome: Code(s): G89.4 - Chronic pain syndrome (4) Myofascial neck pain: Code(s): M54.2 - Cervicalgia Plan The patient is on the phone today 2 week after insertion of the Sprint PNS at the C5 position at the right lamina.C/o stimulations sensation spreading down the right upper extremity with increased intensity of the stimulation. Unfortunately despite my recommendations to save final image of the electrode position it was not saved, Radiology will try to recover the image and included into the set of images related to this case. However it is clear now that her lead have nigrated and this resulted in sensations as above. We decided today that she will go for therapeutic C4- C5- C6 bilateral therapeutic steroid injections. Patient Instructions: I hereby testify that I spent 15 minutes in conversation with the patient, roustabout crew leader Marylin who is certified steamblaster helped this conversation today. Telehealth Telehealth Location of provider rendering services: practice address Location of patient: other Patient Identification confirmed using: Name, : Yes Telehealth method: voice only Patient verbally consented to treatment: Yes Patient verbally consented to billing insurance company: Yes Patient informed of any privacy concerns related to visit: Yes Coding Level of Care Code Tele Est Pt Level 3 (83910) Diagnoses Spondylosis of cervical region without myelopathy or radiculopathy M47.812 Arthropathy of facet joint M47.819 Chronic pain syndrome G89.4 Myofascial neck pain M54.2
== END 2023-11-28 10:52 | disposition home or self-care (01) ==
LOC: HO.PMC 10:44
PROVIDERS: PCP Registered Nurse; Visit Provider Anesthesiology
DX: M47.812 Spondylosis without myelopathy or radiculopathy, cervical region (principal); M47.819 Spondylosis without myelopathy or radiculopathy, site unspecified; G89.4 Chronic pain syndrome; M54.2 Cervicalgia
CPT/HCPCS: 99213

== ENCOUNTER → 2023-11-28 10:44 | Outpatient (BNVA) | payer MEDICAID, SELFPAY | PROVIDERS: PCP Registered Nurse; Visit Provider Anesthesiology ==

== ENCOUNTER 2023-12-24 06:16 | Outpatient (REF) | payer MEDICAID, SELFPAY ==
--- NOTE | ~2023-12-24 | FL_ITS ---
EXAMINATION: XR FLUOROSCOPY WITH IMAGES CLINICAL INFORMATION: Spondylosis without myelopathy or radiculopathy, cervical region. COMPARISON: C-spine radiographs 09/18/2023. TECHNIQUE: Fluoroscopy Supervised By: Dr. Rodrick Richardson. Fluoroscopy Time: 0.5 minutes. Cumulative Dose: 0.896 mGy. DAP: 0.0155 Gycm2. Images: 6. FINDINGS: Imaging demonstrates multiple needle placement and contrast injection in the cervical spine. Please see Dr. Rodrick Richardson's procedure note for full details. FL/FL guidance in treatment room IMPRESSION: Fluoroscopy and spot films provided during cervical spine procedure.
== END 2023-12-24 06:17 | disposition home or self-care (01) ==
LOC: CF 06:16
PROVIDERS: Visit Provider Anesthesiology
DX: M47.812 Spondylosis without myelopathy or radiculopathy, cervical region (principal); G89.4 Chronic pain syndrome; M62.838 Other muscle spasm
CPT/HCPCS: 64490; 64491; J2795; J3301; Q9967

== ENCOUNTER 2023-12-24 13:04 | Outpatient (AMB) | payer MEDICAID, SELFPAY ==
--- NOTE | 2023-12-24 13:07 | A.OFFVIS_ITS ---
Intake Vital Signs 12/24/23 13:18 12/24/23 13:19 Height 4 ft 11 in 4 ft 11 in Weight 129 lb 4 oz 129 lb 4 oz BMI 26.1 26.1 BP 98/58 L 98/60 Blood Pressure Location Lt brachial Lt brachial Position Sitting Sitting Respiration 12 12 Pulse 61 83 Pulse Source Pulse Oximeter Pulse Oximeter Pulse Oximetry (%) 98 100 Oxygen Delivery Method Room Air Room Air Comment pre-op post-op Intake Visit Reasons: BILATERAL THERAPEUTIC C4, C5, C6 MBB Allergies SEAFOOD Allergy (Severe, Uncoded 11/15/23 09:29) ITCHY THROAT shellfish Allergy (Unknown, Uncoded 11/15/23 09:29) ITCHY THROAT PFSH Medical History Arthritis Chronic neck pain Obesity Dysplasia of cervix, low grade (BOBBY 1) Sciatica Abnormal uterine bleeding Fibroadenoma Migraine Anemia Surgical History History of wisdom tooth extraction History of lumpectomy of right breast (01/28/20) Hx of gastric bypass H/O tubal ligation Family History Father Asthma Social History Household Members: Children Housing: House Are you a primary animal caregiver to a significant other at home: Yes (children) Do you presently have visiting nurse or other home services: No Alcohol intake: never Patient Tobacco Use Status: Never used Tobacco service: No Current occupational status: employed Current occupation: [employer] /rt handed Female Reproductive History Menstrual Age of Menarche: 8 Physical Exam Vital Signs: Last Vital Signs Pulse 83 12/24/23 13:19 Resp 12 12/24/23 13:19 BP 98/60 12/24/23 13:19 Pulse Ox 100 12/24/23 13:19 Oxygen Delivery Method Room Air 12/24/23 13:19 BMI result Body Mass Index 26.1 Assessment & Plan Assessment & Plan (1) Chronic pain syndrome: Code(s): G89.4 - Chronic pain syndrome (2) Arthropathy of facet joint: Code(s): M47.819 - Spondylosis without myelopathy or radiculopathy, site unspecified (3) Trapezius muscle spasm: Code(s): M62.838 - Other muscle spasm (4) Spondylosis of cervical region without myelopathy or radiculopathy: Code(s): M47.812 - Spondylosis without myelopathy or radiculopathy, cervical region Plan: Therapeutic cervical medial branch block C4-C5 C6. Informed consent was explained to the patient. All questions were explained and answered.? The patient was taken inside the operating room where he was positioned prone on the operating table.? Time-out was performed delineating correct site, side, the nature of the procedure, patient's allergy, preoperative antibiotic if needed.? All operating room staff was participating in OR time-out procedure. The back of the neck and upper thorax were prepped with ChloraPrep and draped with sterile towels.? Sterilely draped C-arm was brought over the operating field and sq picture of? C4- C5- C6 vertebrae were delineated on the screen.? Points of interest were delineated as lateral masses on the left and the right of the vertebrae as above. The waste of each lateral mass was chosen as the target of the tip of the needles on AP view and center of paralelloid delineating the lateral mass on the lateral view was chosen as control of each needle position.?? The projections of the point of interest to the skin were injected with the small amount of local anesthetic lidocaine 2% 1-1.5 cc.? After that 22 gauge 3and 1/2 inch? spinal needles were driven to the point of interest in tunnel vision fashion. After needles gently contacted the bone at the point of interests the needle was injected with 1 ml of ropivacaine 0.5%-mixed with kenalog. Total dose of kenalog was 80 mg.? Upon completion of the injections the needles were removed and sterile dressings were applied, the patient was taken? outside of the operating room to recovery room where she recovered uneventfully. Plan Most likely this patient suffers from spondylosis of lumbar spine. I will schedule her for bilateral L3-L4 dorsal ramus L5 medial branch block diagnostic. After that we will see if this diagnostic injection will give us any indication for further treatment. I will send her for x-ray of the lumbar spine to rule out possible spondylol isthesis possible pars defect because this patient is formerly morbidly obese. Next appointment is after the injection. Orders: Orders FL guidance in treatment room Today M47.812 - Spondylosis without myelopathy or radiculopathy, cervical region Coding Level of Care Code Procedure Only Diagnoses Chronic pain syndrome G89.4 Arthropathy of facet joint M47.819 Trapezius muscle spasm M62.838 Spondylosis of cervical region without myelopathy or radiculopathy M47.812
[2023-12-24 13:18] VITALS: BP 98/58; PULSE 61; RESP 12; O2SAT 98; BMI 26.1
[2023-12-24 13:19] VITALS: BP 98/60; PULSE 83; RESP 12; O2SAT 100; BMI 26.1
== END 2023-12-24 14:38 | disposition home or self-care (01) ==
LOC: HO.PMCPRC 13:04
PROVIDERS: PCP Registered Nurse; Referring Provider Registered Nurse; Visit Provider Anesthesiology
DX: M47.812 Spondylosis without myelopathy or radiculopathy, cervical region (principal); G89.4 Chronic pain syndrome; M62.838 Other muscle spasm
CPT/HCPCS: 64490; 64491

== ENCOUNTER 2024-01-22 11:33 | Outpatient (AMB) | payer MEDICAID, SELFPAY ==
--- NOTE | 2024-01-22 11:35 | A.OFFVIS_ITS ---
Intake Vital Signs 01/22/24 11:44 Height 4 ft 11 in Weight 120 lb 4 oz BMI 24.3 BP 114/64 Blood Pressure Location Lt brachial Position Sitting Respiration 16 Pulse 76 Pulse Source Pulse Oximeter Pulse Oximetry (%) 100 Oxygen Delivery Method Room Air Intake Visit Reasons: BILATERAL THERAPEUTIC C4,C5,C6 MBB/12/24/23 Intake Note: Patient came in for post-op appointment. Reports pain 8/10. Allergies SEAFOOD Allergy (Severe, Uncoded 11/15/23 09:29) ITCHY THROAT shellfish Allergy (Unknown, Uncoded 11/15/23 09:29) ITCHY THROAT HPI HPI Comments History of Present Illness Details Rika is is in the office today to discuss the results of for bilateral C4-C5 C6 medial branch block. The procedure was therapeutic. She reports excellent pain relief of the axial cervical pain. She still complains on moderate pain in the left upper shoulder. Unlikely it is related to her facet arthropathy most likely it is just a muscular spasm. I recommended her to continue Aspercreme with lidocaine application she also may take locally warming application such as BenGay or salicylate applications. PRIOR Rika is in the office today to discuss the results of the right-sided implantation of the sprint PNS, she reports excellent pain relief, she reports better mobility, better activities of daily living better social interactions. She is waiting for completion of the procedure with insertion of the left-sided stimulating device. It is scheduled on 06/20/2023. Follow-up appointment is scheduled in the office for her after that. Dressing changed today: The wound is clean, the position of the electrode is appropriate. There is no pathological discharge. Dressing is changed with ChloraPrep gentle prep around and sterile dressing with Tegaderm. bilateral L3-L4 does ramus L5 medial branch block which was performed for her on 05/21/2023. She reported about 50% pain improvement immediately after procedure. She reported that it lasted up to the end of the day of the procedure. She reported complete elimination of the pain for the next day of the procedure. She was 24 hours free of pain. She slept very well at the end of that day. The pain started to come back only in the morning of the 3rd day after the procedure. And it was not return of the pain to complete full strength. It looks like that the patient does suffer from spondylosis of lumbar spine. I offered to the patient and explained to her sprint PNS 1st on the right and then on the left. Patient agreed to go for the procedure. She believes that she can obtain light duties for the 1st 8 weeks after the procedure of PNS sprint -the only thing she would require is to provide a letter to her employer about her condition. Prior: very pleasant 32 years old female who is in my office with complains on lower back pain and pain in bilateral trapezius muscles inform us spasms.? She reports her pain as pins and needles numbing sensation stabbing sensation and diet the pain radiates down the left lower extremity to the level of just below her left knee but not below that level.? She reports that she can not sleep normally but she cannot function normally because of her pain.? Is employed full-time.? She reports that heat applications alleviate her pain.? She had physical therapy for her pain with not significant relief.? Long time ago in 2019 she had chiropractic manipulations and she reported only pain aggravations.? She never had any diagnostic studies of her lumbar spine.? No MRI no CT scans were done.? She never had any injections.? Her past medical history is significant for headaches migraines, she has heart palpitation tachycardia she is under care of hospice social worker with this condition she has anemia.? Her past surgical history significant for breast mass biopsy and gastric bypass surgery. [facility] Medical History Arthritis Chronic neck pain Obesity Dysplasia of cervix, low grade (BOBBY 1) Sciatica Abnormal uterine bleeding Fibroadenoma Migraine Anemia Surgical History History of wisdom tooth extraction History of lumpectomy of right breast (01/28/20) Hx of gastric bypass H/O tubal ligation Family History Father Asthma Social History Household Members: Children Housing: House Are you a primary healthcare consultant to a significant other at home: Yes (children) Do you presently have visiting nurse or other home services: No Alcohol intake: never Patient Tobacco Use Status: Never used Tobacco service: No Current occupational status: employed Current occupation: [employer] /rt handed Female Reproductive History Menstrual Age of Menarche: 8 Review of Systems Const All systems reviewed & are unremarkable except as noted in HPI and below ENT Reports Normal hearing present Neuro Reports Normal hearing present, Denies Abnormal speech present, Denies confusion and Denies Sensory deficit (Neuro) Psych Denies confusion Physical Exam Vital Signs: Last Vital Signs Pulse 76 01/22/24 11:44 Resp 16 01/22/24 11:44 BP 114/64 01/22/24 11:44 Pulse Ox 100 01/22/24 11:44 Oxygen Delivery Method Room Air 01/22/24 11:44 BMI result Body Mass Index 24.3 Const General: no acute distress; No confusion Orientation/consciousness: patient oriented x3 and No confusion Eyes General: appearance normal, both eyes and all related structures Pupils: Equal, round and reactive pupils present EOM: EOMs intact bilaterally Neck Other: Normal strength of bilateral upper extremities right compared to the left. She denies numbness in bilateral upper extremities. She denies headache. Valsalva maneuver does not aggravate her pain. Neck: No full ROM Chest Chest palpation & inspection: normal inspection of the chest Resp Effort & Inspection: normal respiratory effort, able to speak in complete sentences, normal respiratory pattern, no audible wheezes and no cough Cardio Jugular venous distension: no JVD GI Inspection: Yes normal to inspection Neuro General: patient oriented x3, gait normal and No confusion Cranial nerves: Yes CN's II-XII intact bilaterally, Yes Equal, round and r eactive pupils present, Yes Normal hearing present and Yes Ability to bilaterally elevate shoulders present Speech: No Abnormal speech present Gait exam (Neuro): Normal gait present Motor exam (neuro): 5/5 motor strength present throughout Sensory Exam: No Sensory deficit (Neuro) Extrem General: No pedal edema Psych Speech and movement: Normal speech and movement present Affect: normal affect Attitude: cooperative Thought process: Normal thought process present Thought content: Normal thought content present Insight: Good insight present (Psych) Judgement: Good judgement present (Psych) Assessment & Plan Assessment & Plan (1) Spondylosis of cervical region without myelopathy or radiculopathy: Code(s): M47.812 - Spondylosis without myelopathy or radiculopathy, cervical region (2) Arthropathy of facet joint: Code(s): M47.819 - Spondylosis without myelopathy or radiculopathy, site unspecified (3) Chronic pain syndrome: Code(s): G89.4 - Chronic pain syndrome (4) Myofascial neck pain: Code(s): M54.2 - Cervicalgia Plan Very good results of therapeutic C4-C5 C6 medial branch block. The patient reports residual left upper shoulder pain which most likely related to trapezius overuse. Topical medications recommended to the patient. Next appointment is as needed. Coding Level of Care Code Est Pt Level 3 (40597) Diagnoses Spondylosis of cervical region without myelopathy or radiculopathy M47.812 Arthropathy of facet joint M47.819 Chronic pain syndrome G89.4 Myofascial neck pain M54.2
[2024-01-22 11:44] VITALS: BP 114/64; PULSE 76; RESP 16; O2SAT 100; BMI 24.3
== END 2024-01-22 11:54 | disposition home or self-care (01) ==
PROVIDERS: PCP Registered Nurse; Visit Provider Anesthesiology
DX: M47.812 Spondylosis without myelopathy or radiculopathy, cervical region (principal); M47.819 Spondylosis without myelopathy or radiculopathy, site unspecified; G89.4 Chronic pain syndrome; M54.2 Cervicalgia
CPT/HCPCS: 99213

== ENCOUNTER → 2024-01-22 11:33 | Outpatient (BNVA) | payer MEDICAID, SELFPAY | PROVIDERS: PCP Registered Nurse; Visit Provider Anesthesiology | DX: M47.812 Spondylosis without myelopathy or radiculopathy, cervical region (principal); M47.819 Spondylosis without myelopathy or radiculopathy, site unspecified; M54.2 Cervicalgia; G89.4 Chronic pain syndrome | CPT/HCPCS: 99212 ==

== ENCOUNTER 2024-02-12 10:01 | Outpatient (REF) | payer OTHER, SELFPAY ==
[2024-02-12 11:45] LABS: C Reactive Protein 0.11 mg/dL (< or = 0.50)
[2024-02-12 12:29] LABS: Erythrocyte Sedimentation Rate 9 MM/HR (0-20)
[2024-02-13 04:23] LABS: Rheumatoid Factor < 13.0 IU/mL (<15.0)
[2024-02-14 14:38] LABS: Cyclic Citrullinated Peptide <16 UNITS
== END 2024-02-12 10:02 | disposition home or self-care (01) ==
LOC: HO.HHCL 10:01
PROVIDERS: Visit Provider Registered Nurse
DX: M25.50 Pain in unspecified joint (principal)
CPT/HCPCS: 36415; 85652; 86140; 86200; 86431

== ENCOUNTER 2024-08-19 07:23 | Outpatient (REF) | payer OTHER, SELFPAY ==
--- NOTE | ~2024-08-19 | MR_ITS ---
EXAMINATION: MR LUMBAR SPINE WITHOUT CONTRAST CLINICAL INFORMATION: Bilateral lower back pain with sciatica. COMPARISON: None available. TECHNIQUE: MRI of the lumbar spine was obtained using routine sequences without contrast. FINDINGS: Normal anatomic alignment. Normal, homogeneous marrow signal throughout. The vertebral body heights are maintained. The intervertebral discs are of normal height and signal. The conus medullaris terminates at the level of L1-L2. The distal spinal cord is normal in appearance. No significant abnormalities of the paraspinal musculature. Limited evaluation of the intra-abdominal structures without significant abnormalities. The abdominal aorta is of normal contour and caliber. AXIAL SPINAL LEVELS: L1-L2: Normal annular contour. There is mild right and no left facet joint arthropathy. There is no neural foraminal stenosis. There is no spinal canal stenosis. L2-L3: Shallow diffuse disc bulge. There is mild bilateral facet joint arthropathy. There is no neural foraminal stenosis. There is no spinal canal stenosis. L3-L4: Normal annular contour. There is mild bilateral facet joint arthropathy. There is mild bilateral neural foraminal stenosis. There is no spinal canal stenosis. L4-L5: Shallow diffuse disc bulge. There is mild bilateral facet joint arthropathy. There is mild bilateral neural foraminal stenosis. There is no spinal canal stenosis. L5-S1: Normal annular contour. There is mild bilateral facet joint arthropathy. There is mild bilateral neural foraminal stenosis. There is no spinal canal stenosis. MR/MR lumbar spine wo con IMPRESSION: Mild multilevel degenerative spondyloarthropathy of the lumbar spine as described in detail above. No overt spinal canal stenosis or nerve root compression. Electronically signed by: Jimmie Huerta DO 09/13/2024 03:38 AM EDT
== END 2024-08-19 07:24 | disposition home or self-care (01) ==
LOC: HO.MRI 07:23
PROVIDERS: PCP Registered Nurse; Visit Provider Registered Nurse
DX: M54.41 Lumbago with sciatica, right side (principal); M54.42 Lumbago with sciatica, left side; G89.29 Other chronic pain
CPT/HCPCS: 72148

== ENCOUNTER 2024-10-14 10:35 | Outpatient (AMB) | payer OTHER, SELFPAY ==
--- NOTE | 2024-10-14 10:37 | A.OFFVIS_ITS ---
Vital Signs 10/14/24 10:50 Height 4 ft 11 in Weight 136 lb 2 oz BMI 27.5 BP 108/68 Blood Pressure Location Lt brachial Position Sitting Respiration 14 Pulse 74 Pulse Source Pulse Oximeter Pulse Oximetry (%) 99 Oxygen Delivery Method Room Air Intake Visit Reasons: Chronich bilateral low back pain Intake Note: Patient comes in for chronic low back pain. Reports pain 8/10. Internal Communications Writer Required: Yes Internal Communications Writer Services: Internal Communications Writer Present Internal Communications Writer Name: Christal Allergies SEAFOOD Allergy (Severe, Uncoded 11/15/23 09:29) ITCHY THROAT shellfish Allergy (Unknown, Uncoded 11/15/23 09:29) ITCHY THROAT HPI Comments Details: Rika is back in my office with complaining on lower back pain. No complains on cervical pain were presented today. She in the past was treated for cervicalgia cervical spondylosis with bilateral therapeutic medial branch block C4-C5 C6. She reported a good pain relief from this procedure. In 2022ashlee also was subject of diagnostic medial branch block lumbar spine L3-L4 does ramus L5 and after that she went for bilateral sprint PNS which gave her some pain relief in the back. Recently she went to her family nurse practitioner with increased pain in the lower back. She was sent for the MRI. The results of the MRI dictated as below. While there are multiple changes on the MRI attention was today attracted to the fact that she exhibits signs of sacroiliitis. See physical exam as below. I decided to offer to this patient diagnostic right sacroiliac joint injection. If this will help her pain I will consider neuromodulation versus fusion for this patient's treatment. [facility] Medical History Arthritis Chronic neck pain Obesity Dysplasia of cervix, low grade (BOBBY 1) Sciatica Abnormal uterine bleeding Fibroadenoma Migraine Anemia Surgical History History of wisdom tooth extraction History of lumpectomy of right breast (01/28/20) Hx of gastric bypass H/O tubal ligation Family History Father Asthma Social History Household Members: Children Housing: House Are you a primary animal caretaker supervisor to a significant other at home: Yes (children) Do you presently have visiting nurse or other home services: No Alcohol intake: never Patient Tobacco Use Status: Never used Tobacco service: No Current occupational status: employed Current occupation: [employer] /rt handed Female Reproductive History Menstrual Age of Menarche: 8 Review of Systems Const All systems reviewed & are unremarkable except as noted in HPI and below ENT Reports Normal hearing present Neuro Reports Normal hearing present, Denies Abnormal speech present, Denies confusion and Denies Sensory deficit (Neuro) Psych Denies confusion Physical Exam Vital Signs: Last Vital Signs Pulse 74 10/14/24 10:50 Resp 14 10/14/24 10:50 BP 108/68 10/14/24 10:50 Pulse Ox 99 10/14/24 10:50 Oxygen Delivery Method Room Air 10/14/24 10:50 BMI result Body Mass Index 27.5 Const General: no acute distress; No confusion Orientation/consciousness: patient oriented x3 and No confusion Eyes General: appearance normal, both eyes and all related structures Pupils: Equal, round and reactive pupils present EOM: EOMs intact bilaterally Neck Other: Normal strength of bilateral upper extremities right compared to the left. She denies numbness in bilateral upper extremities. She denies headache. Valsalva maneuver does not aggravate her pain. Neck: No full ROM Chest Chest palpation & inspection: normal inspection of the chest Resp Effort & Inspection: normal respiratory effort, able to speak in complete sentences, normal respiratory pattern, no audible wheezes and no cough Cardio Jugular venous distension: no JVD GI Inspection: Yes normal to inspection Back/Spine/Pelvis Other: Positive Dangelo test on the right. Positive pelvic compression and pelvic distraction test on the right. Positive thigh thrust test on the right. Positive 14 finger test on the right. Neuro General: patient oriented x3, gait normal and No confusion Cranial nerves: Yes CN's II-XII intact bilaterally, Yes Equal, round and reactive pupils present, Yes Normal hearing present and Yes Ability to bilaterally elevate shoulders present Speech: No Abnormal speech present Gait exam (Neuro): Normal gait present Motor exam (neuro): 5/5 motor strength present throughout Sensory Exam: No Sensory deficit (Neuro) Extrem General: No pedal edema Psych Speech and movement: Normal speech and movement present Affect: normal affect Attitude: cooperative Thought process: Normal thought process present Thought content: Normal thought content present Insight: Good insight present (Psych) Judgement: Good judgement present (Psych) Results Reviewed Results Reviewed: MR LUMBAR SPINE WITHOUT CONTRAST CLINICAL INFORMATION: Bilateral lower back pain with sciatica. COMPARISON: None available. TECHNIQUE: MRI of the lumbar spine was obtained using routine sequences without contrast. FINDINGS: Normal anatomic alignment. Normal, homogeneous marrow signal throughout. The vertebral body heights are maintained. The intervertebral discs are of normal height and signal. The conus medullaris terminates at the level of L1-L2. The distal spinal cord is normal in appearance. No significant abnormalities of the paraspinal musculature. Limited evaluation of the intra-abdominal structures without significant abnormalities. The abdominal aorta is of normal contour and caliber. AXIAL SPINAL LEVELS: L1-L2: Normal annular contour. There is mild right and no left facet joint arthropathy. There is no neural foraminal stenosis. There is no spinal canal stenosis. L2-L3: Shallow diffuse disc bulge. There is mild bilateral facet joint arthropathy. There is no neural foraminal stenosis. There is no spinal canal stenosis. L3-L4: Normal annular contour. There is mild bilateral facet joint arthropathy. There is mild bilateral neural foraminal stenosis. There is no spinal canal stenosis. L4-L5: Shallow diffuse disc bulge. There is mild bilateral facet joint arthropathy. There is mild bilateral neural foraminal stenosis. There is no spinal canal stenosis. L5-S1: Normal annular contour. There is mild bilateral facet joint arthropathy. There is mild bilateral neural foraminal stenosis. There is no spinal canal stenosis. MR/MR lumbar spine wo con IMPRESSION: Mild multilevel degenerative spondyloarthropathy of the lumbar spine as described in detail above. No overt spinal canal stenosis or nerve root compression. Assessment & Plan Assessment & Plan (1) Spondylosis of cervical region without myelopathy or radiculopathy: Code(s): M47.812 - Spondylosis without myelopathy or radiculopathy, cervical region Category: Medical (2) Arthropathy of facet joint: Code(s): M47.819 - Spondylosis without myelopathy or radiculopathy, site unspecified Category: Medical (3) Chronic pain syndrome: Code(s): G89.4 - Chronic pain syndrome Category: Medical (4) Myofascial neck pain: Code(s): M54.2 - Cervicalgia Category: Medical (5) Sacroiliitis: Code(s): M46.1 - Sacroiliitis, not elsewhere classified Category: Medical (6) Sacroiliac joint dysfunction of right side: Code(s): M53.3 - Sacrococcygeal disorders, not elsewhere classified Category: Medical Plan No complains on cervicalgia today. She was sent for MRI of the cervical spine by CONTRACT TECHNICIAN primary care. While demonstrating multiple changes it is not very congruent today with the patient's symptoms. She presents today with right sacroiliitis symptoms see described physical exam as above. I will schedule this patient for diagnostic right sacroiliac joint injection. The further treatment will be discussed after the results of the injection will be demonstrated. Possibility of treating her pain with sprint PNS still exists was implantation of the device in the lower back. In the past it was instrumental to help her pain. Patient Instructions: I here by testify that I spent 32 minutes in conversation with this patient as well as planning her care and organizing this note. fine sander from [facility] [id number] was helping us today to maintain this conversation is [place]. Coding Level of Care Code Est Pt Level 4 (46146) Diagnoses Spondylosis of cervical region without myelopathy or radiculopathy M47.812 Arthropathy of facet joint M47.819 Chronic pain syndrome G89.4 Myofascial neck pain M54.2 Sacroiliitis M46.1 Sacroiliac joint dysfunction of right side M53.3
[2024-10-14 10:50] VITALS: BP 108/68; PULSE 74; RESP 14; O2SAT 99; BMI 27.5
== END 2024-10-14 11:03 | disposition home or self-care (01) ==
PROVIDERS: PCP Registered Nurse; Visit Provider Anesthesiology
DX: M47.812 Spondylosis without myelopathy or radiculopathy, cervical region (principal); M47.819 Spondylosis without myelopathy or radiculopathy, site unspecified; G89.4 Chronic pain syndrome; M54.2 Cervicalgia; M46.1 Sacroiliitis, not elsewhere classified; M53.3 Sacrococcygeal disorders, not elsewhere classified
CPT/HCPCS: 99214

== ENCOUNTER → 2024-10-14 10:35 | Outpatient (BNVA) | payer OTHER, SELFPAY | PROVIDERS: PCP Registered Nurse; Visit Provider Anesthesiology | DX: M47.812 Spondylosis without myelopathy or radiculopathy, cervical region (principal); M47.819 Spondylosis without myelopathy or radiculopathy, site unspecified; M54.2 Cervicalgia; M46.1 Sacroiliitis, not elsewhere classified; M53.3 Sacrococcygeal disorders, not elsewhere classified; G89.4 Chronic pain syndrome | CPT/HCPCS: 99212 ==

== ENCOUNTER 2024-10-21 07:48 | Outpatient (REF) | payer OTHER, SELFPAY ==
[2024-10-22 07:38] LABS: CT PCR NOT DETECTED (Not Detect.); NG PCR NOT DETECTED (Not Detect.)
== END 2024-10-21 07:49 | disposition home or self-care (01) ==
LOC: HO.LNP 07:48
PROVIDERS: Visit Provider Obstetrics & Gynecology
DX: Z01.419 Encounter for gynecological examination (general) (routine) without abnormal findings (principal); Z11.3 Encounter for screening for infections with a predominantly sexual mode of transmission; N94.6 Dysmenorrhea, unspecified; Z87.42 Personal history of other diseases of the female genital tract; Z97.5 Presence of (intrauterine) contraceptive device
CPT/HCPCS: 87491; 87591; 99395

== ENCOUNTER 2024-10-21 07:48 | Outpatient (AMB) | payer OTHER, SELFPAY ==
[2024-10-21 07:57] VITALS: BP 106/62; BMI 27.2
--- NOTE | 2024-10-21 07:57 | A.OFFVIS_ITS ---
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 Accounting Advisory Services Manager Required: Yes Accounting Advisory Services Manager Language: Mult Au Matic Operator Services: Accounting Advisory Services Manager Present (in person) Accounting Advisory Services Manager Name: Laurie DUVALL Information Interpreted: non-clinical & clinical Mud Worker: Mud Worker Present (Laurie DUVALL) Accompanied by: Self / Same As Patient Allergies SEAFOOD Allergy (Severe, Uncoded 10/21/24 08:00) ITCHY THROAT shellfish Allergy (Unknown, Uncoded 10/21/24 08:00) ITCHY THROAT Is last menstrual period known: No (mirena) HPI Comments Details: Presenting for annual exam. The patient is complaining of pelvic cramping during her menstrual cycles Last Pap/HPV was negative in 04/23 [facility] Medical History Arthritis Chronic neck pain Obesity Dysplasia of cervix, low grade (BOBBY 1) Sciatica Abnormal uterine bleeding Fibroadenoma Migraine Anemia Surgical History History of wisdom tooth extraction History of lumpectomy of right breast (01/28/20) Hx of gastric bypass H/O tubal ligation Family History Father Asthma Social History Household Members: Children Housing: House Are you a primary care team assistant to a significant other at home: Yes (children) Do you presently have visiting nurse or other home services: No Alcohol intake: never Patient Tobacco Use Status: Never used Tobacco service: No Current occupational status: employed Current occupation: [employer] /rt handed Female Reproductive History Menstrual Age of Menarche: 8 control method: progestin IUCD Total pregnancies: 3 Full term: 2 Number of Living Children: 2 Ab spontaneous: 1 Date of last pap smear: 04/10/23 Review of Systems Const All systems reviewed & are unremarkable except as noted in HPI and below Card Reports as per HPI Resp Reports as per HPI GI Reports as per HPI and Reports no additional complaints Reports as per HPI Physical Exam Vital Signs: Last Vital Signs BP 106/62 10/21/24 07:57 BMI result Body Mass Index 27.2 Const General: cooperative, healthy appearing and comfortable Chest Chest palpation & inspection: normal inspection of the chest and normal palpation of entire chest wall Breast/axilla inspection: normal inspection of the breasts and normal inspection of the axillae Breast/axilla palpation: normal palpation of the breasts, normal palpation of the axillae and no axillary lymphadenopathy Resp Effort & Inspection: normal respiratory effort Auscultation: clear to auscultation bilaterally Percussion: percussion normal Cardio Palpation: normal PMI Rate: regular rate Rhythm: regular rhythm Heart sounds: no murmurs and no rubs Peripheral pulses: Peripheral pulses 2+ throughout GI Inspection: Yes normal to inspection Palpation (GI): Soft to palpation, nontender, no guarding, not rigid and No hepatosplenomegaly present Percussion: Yes normal to percussion Auscultation: normal bowel sounds Rectal Exam - Female: deferred General: Yes bladder normal to palpation External Female Exam: No lesion Speculum Exam - Vagina: normal appearance of the vagina, normal palpation, normal vaginal discharge and not erythematous Speculum Exam - Cervix: normal appearance of the cervix, normal palpation and Other cervical findings present (IUD string in place) Bimanual exam- vagina & uterus: normal bimanual exam, normal palpation, uterine size normal, bladder normal to palpation, consistency normal and normal palpation Bimanual Exam- Adnexa, other: normal adnexae, no masses and no tenderness Assessment & Plan Assessment & Plan (1) Well woman exam: Comment: History of BOBBY 2 in 2018 status post LEEP cone Code(s): Z01.419 - Encounter for gynecological examination (general) (routine) without abnormal findings Category: Medical Plan: Cotesting not indicated this year Counseled the patient about the recommended dietary allowance of 1000 mg of Calcium & 600 IU of vitamin D. The patient was instructed to perform monthly self-breast exams and to schedule an annual exam in a year; All questions answered and the patient verbalized understanding. Instructed the patient to schedule annual exam in a year (2) Dysmenorrhea: Code(s): N94.6 - Dysmenorrhea, unspecified Category: Medical Plan: UPT done in the office was negative, GC/CT done. Will order pelvic ultrasound. Instructions given the patient to schedule an ultrasound follow-up appointment. Coding Level of Care Code Est Pt Level 3 (54894) Est Pt Prev Care 18-39y([id number]) Diagnoses Well woman exam Z01.419 Dysmenorrhea N94.6
== END 2024-10-21 08:27 | disposition home or self-care (01) ==
PROVIDERS: Visit Provider Obstetrics & Gynecology
DX: Z01.419 Encounter for gynecological examination (general) (routine) without abnormal findings (principal); N94.6 Dysmenorrhea, unspecified
CPT/HCPCS: 99395

== ENCOUNTER 2024-11-11 10:41 | Outpatient (REF) | payer OTHER, SELFPAY | END 2024-11-11 10:42 | disposition home or self-care (01) | LOC: HO.US 10:41 | PROVIDERS: PCP Registered Nurse; Visit Provider Obstetrics & Gynecology | DX: Z30.431 Encounter for routine checking of intrauterine contraceptive device (principal) | CPT/HCPCS: 76830; 76856 ==

== ENCOUNTER → 2024-11-11 10:44 | Outpatient (BNV) | payer OTHER, SELFPAY | PROVIDERS: PCP Registered Nurse; Visit Provider Radiology Diagnostic Radiology | DX: Z30.431 Encounter for routine checking of intrauterine contraceptive device (principal) | CPT/HCPCS: 76830; 76856 ==

== ENCOUNTER 2025-02-16 06:35 | Outpatient (REF) | payer OTHER, SELFPAY ==
--- NOTE | ~2025-02-16 | FL_ITS ---
EXAMINATION: FL GUIDANCE ONLY HISTORY: M53.3 - Sacrococcygeal disorders, not elsewhere classified COMPARISON: None TECHNIQUE: Fluoroscopy time: 0.1 minutes. Cumulative Dose: 1.00 mGy. DAP: 0.0174 mGym2 Images: 1. FINDINGS: A single fluoroscopic spot film of the pelvis demonstrates a needle in the region of the right sacroiliac joint. FL/FL guidance in treatment room IMPRESSION: Fluoroscopy during procedure. Please see procedure report for additional information. Electronically signed by: Manoj Mora MD 02/17/2025 07:07 AM EDT
== END 2025-02-16 06:36 | disposition home or self-care (01) ==
LOC: CF 06:35
PROVIDERS: Visit Provider Anesthesiology
DX: M53.3 Sacrococcygeal disorders, not elsewhere classified (principal)
CPT/HCPCS: 27096; J2003; J2795

== ENCOUNTER → 2025-02-16 15:09 | Outpatient (AMB) | payer OTHER, SELFPAY ==
[2025-02-16 15:13] VITALS: BP 97/71; PULSE 66; RESP 16; O2SAT 100
--- NOTE | 2025-02-16 15:13 | MHC.OFFVIS ---
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: No Allergies SEAFOOD Allergy (Severe, Uncoded 02/16/25 15:13) ITCHY THROAT shellfish Allergy (Unknown, Uncoded 02/16/25 15:13) ITCHY THROAT Medication List - Last Reconciled 02/16/25 by Irena Browning LPN [id number] 250-250-65 mg (Excedrin Migraine) 1 tab PO Q4-6H PRN baclofen 5 mg PO BID PRN diclofenac sodium 3% 1 appl topical BID escitalopram oxalate (Lexapro) 5 mg PO DAILY famotidine 10 mg PO DAILY hydroxyzine HCl 25 mg PO Q6H PRN levonorgestrel (Mirena) intrauterine mirtazapine (Remeron) 15 mg PO BEDTIME PFSH Medical History Arthritis Chronic neck pain Obesity Dysplasia of cervix, low grade (BOBBY 1) Sciatica Abnormal uterine bleeding Fibroadenoma Migraine Anemia Surgical History History of wisdom tooth extraction History of lumpectomy of right breast (01/28/20) Hx of gastric bypass H/O tubal ligation Family History Father Asthma Social History Household Members: Children Housing: House Are you a primary director of managed care to a significant other at home: Yes (children) Do you presently have visiting nurse or other home services: No Alcohol intake: never Patient Tobacco Use Status: Never used Tobacco service: No Current occupational status: employed Current occupation: [employer] /rt handed Female Reproductive History Menstrual Age of Menarche: 8 Physical Exam Vital Signs: Last Vital Signs Pulse 66 02/16/25 15:32 Resp 16 02/16/25 15:32 BP 105/73 02/16/25 15:32 Pulse Ox 100 02/16/25 15:32 Oxygen Delivery Method Room Air 02/16/25 15:32 Assessment & Plan Assessment & Plan (1) Sacroiliac joint dysfunction of right side: Code(s): M53.3 - Sacrococcygeal disorders, not elsewhere classified Category: Medical (2) Sacroiliitis: Code(s): M46.1 - Sacroiliitis, not elsewhere classified Category: Medical Plan Right diagnostic sacroiliac joint injection. Informed consent was thoroughly explained to the patient before the procedure.? The patient came to the operating room.? She was positioned prone on operating table with a pillow under her abdomen.? Time-out was performed delineating correct site and side of the procedure, nature of the injection, name and date of of the patient. The lower back and upper buttocks of the patient was prepped with ChloraPrep and draped with sterile utility towels.? C-arm was brought over the operating field the image of the sacroiliac joint was demonstrated on the screen. Tilting machine contralateral to the left the anterior portion of sacroiliac joint was superimposed of the posterior portion of the sacroiliac joint. After that projection of the sacroiliac joint to the skin was injected with mixture of lidocaine 2 % and ropivacaine 0.5% to form a skin wheal. After that 22 gauge 3-1/2 inch needle was inserted through the skin wheal and advanced to the sacroiliac joint. After that injection of the contrast was performed delineating intrathecal spread of the contrast. After that injection of the ropivacaine 0.5% 5 ml was performed into the joint. The needle was removed sterile Band-Aid was applied. Patient tolerated the procedure well. Orders: Orders FL guidance in treatment room 02/16/25 M53.3 - Sacrococcygeal disorders, not elsewhere classified Coding Level of Care Code Procedure Only Diagnoses Sacroiliac joint dysfunction of right side M53.3 Sacroiliitis M46.1
[2025-02-16 15:32] VITALS: BP 105/73; PULSE 66; RESP 16; O2SAT 100
--- OUTSIDE RECORDS SUMMARY | 2025-02-16 18:04 | XMS_ITS | Encounter Summary ---
Author Organization [employer] [facility] Address [address] [place] [address] 7 [place] [address] Care Team Providers Care Coat Baster Name Role Phone Farhana Roldan MD Primary Care Provider Priyank Caro Primary Care Provider Unavail able Debbi Staley Primary Care Provider [phone] Encounter Details Date Type Department Care Team (Latest Contact Info) Description 12/29/2018 Abstract [facility] CONVERSIONS Dental, Provider, DDS Social History Tobacco Use Types Packs/Day Years Used Date Smoking Tobacco: Never Assessed Comments Unknown Sex and Gender Information Value Date Recorded Sex Assigned at Female 10/01/2022 10:32 AM EDT Legal Sex Female 10:32 AM EDT Gender Identity Female 10/01/2022 10:32 AM EDT Sexual Orientation Straight 10/01/2022 10 :32 AM EDT documented as of this encounter Plan of Treatment Upcoming Encounters Date Type Department Care Team (Late st Contact Info) Description 02/22/2025 2:30 PM EDT Office Visit [facility] [address] [place] [address] Debbi Staley FNP [address] [place] [address] documented as of this encounter Visit Diagnoses Not on filedocumented in this encounter Care Teams Coat Baster Relationship Specialty Start Date End Date Farhana Roldan MD PCP - General Family Medicine 09/22/19 12/11/22 Priyank Unger AGNP PCP - General Family Medicine 12/12/22 12/26/22 Debbi Staley FNP [address] [place] [id number] PCP - General Family Medicine 12/27/22 documented as of this encounter
--- OUTSIDE RECORDS SUMMARY | 2025-02-16 18:04 | XMS_ITS | Encounter Summary ---
Author Organization [employer] [facility] Address [address] [place] [address] 7 [place] [address] Care Team Providers Care Township Supervisor Name Role Phone Farhana Roldan MD Primary Care Provider Priyank Caro Primary Care Provider Unavail able Debbi Staley Primary Care Provider [phone] Encounter Details Date Type Department Care Team (Latest Contact Info) Description 12/31/2019 Abstract [facility] CONVERSIONS Dental, Provider, DDS Social History [...] Upcoming Encounters Date Type Department Care Team ( st Contact Info) Description 02/22/2025 2:30 PM EDT Office Visit [facility]INE [address] [place] [address] Debbi Staley FNP [address] [place] [address] documented as of this encounter Visit Diagnoses Not on filedocumented in this encounter Care Teams Township Supervisor Relationship Specialty Start Date End Date Farhana Roldan MD PCP - General Family Medicine 09/22/19 12/11/22 Priyank Unger AGNP PCP - General Family Medicine 12/12/22 12/26/22 Debbi Staley FNP [address] [place] [id number] PCP - General Family Medicine 12/27/22 documented as of this encounter
--- OUTSIDE RECORDS SUMMARY | 2025-02-16 18:04 | XMS_ITS | Encounter Summary ---
Author Organization [employer] Address [address] [facility] 7t [place] [address] Care Team Providers Care Acetylene Gas Compressor Name Role Phone [facility] Primary Care Provider [phone] Reason for Visit * Reason Onset Date Comments Question 01/16/2023 Encounter Details Date Type Department Care Team ([facility] st Contact Info) Description 01/16/2023 Telephone [facility] [address] [place], [place] [phone] [facility] [address] [place], [place] [phone] Question Social History Tobacco Use Types Packs/Day Years Used Date Smoking Tobacco: Never Smokeless Tobacco: Never Alcohol Use Standard Drinks/Week Comments Never 0 (1 standard drink = 0.6 oz pur e alcohol) Comments Unknown Sex and Gender Information Value Date Recorded Sex Assigned at Female 10/01/2022 10:32 AM EDT Legal Sex Female 10:32 AM EDT Gender Identity Female 10/01/2022 10:32 AM EDT Sexual Orientation Straight 10/01/2022 10 :32 AM EDT documented as of this encounter Miscellaneous Notes * Telephone Encounter - Carmen Sheppard RN - 01/17/2023 10:12 AM EST TC placed to pt, utilizing [employer] Illustrator ID:[id number], regarding message below. Pt reports ongoing pain to neck and shoulders, currently 6/10. Pt reports she is going to PT, has one session each week for three weeks and reports not helping and requesting chiropractor referral. Pt reports she is taking patches and medications prescribed by provider without effect. Pt advised to go to Walk In for re-evaluation regarding pain without relief. Pt declined. Pt requesting appt with her doctor. Rn offered soonest appt with her PCP next Saturday01/25/23 and pt declined and requesting appt on01/30/23 in the afternoon. Pt agrees to appt with PCP on 01/30/23 at 2PM. RN informed pt, message wouldbe sent to PCP regarding referral. Pt to F/U as needed. Tc from pt stating that she has started physical therapy and has been going for 3 days but feels that the therapies are not working , and asking if there is another solution that would be able to help more. Please contact pt at [phone] * Telephone Encounter - Neela Snell - 01/16/2023 11:51 AM EST Tc from pt stating that she has started physical therapy and has been going for 3 days but feels that the therapies are not working , and asking if there is another solution that would be able to help more. Please contact pt at [phone] documented in this encounter Plan of Treatment Upcoming Encounters Date Type Department Care Team (Late st Contact Info) Description 02/22/2025 2:30 PM EDT Office Visit [facility] [address] [place] [address] Debbi Staley FNP [address] [place] [address] documented as of this encounter Visit Diagnoses Not on filedocumented in this encounter Care Teams Acetylene Gas Compressor Relationship Specialty Start Date End Date Debbi Staley FNP [address] [place] [address] PCP - General Family Medicine 12/27/22 documented as of this encounter
--- OUTSIDE RECORDS SUMMARY | 2025-02-16 18:05 | XMS_ITS | Encounter Summary ---
Author Organization [employer] Address [address] [facility] 7t [place] [address] Care Team Providers Care Granite Cutter Name Role Phone [facility] Primary Care Provider [phone] Reason for Visit * Reason Onset Date Comments Med Refill 10/26/2024 Encounter Details Date Type Department Care Team ([facility] st Contact Info) Description 10/26/2024 Refill [facility] [address] [place], [place] [phone] [facility] [address] [place] [address] Muscle spasms of neck; Chronic bilateral low back pain with bilateral sciatica Social History Tobacco Use Types Packs/Day Years Used Date Smoking Tobacco: Never Passive Smoke Exposure: Never Smokeless Tobacco: Never Alcohol Use Standard Drinks/Week Comments Never 0 (1 standard drink = 0.6 oz pur e alcohol) Depression Answer Date Recorded Patient Health Questionnaire-9 Score 8 10/21/2024 Patient Health Questionnaire-9 Score 8 10/21/2024 Last PHQ-9: Questionnaire Data Not on file 1 12/21/2023 Housing Stability Answer Date Recorded What is your housing situation today? I have olivia wagner 09/18/[address] you li ve. Do you have problems with any of the following? None of the above 09/18/2023 Food Insecurity Answer Date Recorded Within the past 12 months, y ou worried that your food would run out before you got money to buy more: Never True 09/18/2023 Within the past 12 months,th e food you bought just didn't last and you didn't have enough money to get more: Never True Transportation Answer Date Recorded In the past 12 months, has l ack of transportation kept you from medical appts, meetings, work or from getting things needed for daily living? No 09/18/2023 Utilities Answer Date Recorded In the past 12 months, has t he electric, gas, oil or water company threatened to shut off services in your home? No 09/18/2023 Depression Answer Date Recorded Patient Health Questionnaire-2 Score 2 10/21/2024 Comments No Sex and Gender Information Value Date Recorded Sex Assigned at Female 10/01/2022 10:32 AM EDT Legal Sex Female 10:32 AM EDT Gender Identity Female 10/01/2022 10:32 AM EDT Sexual Orientation Straight 10/01/2022 10 :32 AM EDT documented as of this encounter Plan of Treatment Upcoming Encounters Date Type Department Care Team (Late st Contact Info) Description 02/22/2025 2:30 PM EDT Office Visit [facility] [address] [place] [address] Debbi Staley FNP [address] [place] [address] documented as of this encounter Visit Diagnoses Diagnosis Muscle spasms of neck Chronic bilateral low back pain with bilateral sciatica documented in this encounter Additional Health Concerns Assessment Noted Time PHQ-9 Depression Total Score: 8 10/21/20 24 9:01 AM EST documented as of this encounter Care Teams Granite Cutter Relationship Specialty Start Date End Date Debbi Staley FNP [address] [place] [address] PCP - General Family Medicine 12/27/22 documented as of this encounter
--- OUTSIDE RECORDS SUMMARY | 2025-02-16 18:05 | XMS_ITS | Encounter Summary ---
Author Organization [employer] [facility] Address [address] [place] [address] 7 [place] [address] Care Team Providers Care Welder Boilermaker Name Role Phone [facility] Primary Care Provider [phone] Encounter Details Date Type Department Care Team (Late st Contact Info) Description 08/27/2023 Orders Only [facility] [address] [place] [address] [phone] Provider, MD Tony Social History Tobacco Use Types Packs/Day Years Used Date Smoking Tobacco: Never Passive Smoke Exposure: Never Smokeless Tobacco: Never Alcohol Use Standard Drinks/Week Comments Never 0 (1 standard drink = 0.6 oz pur e alcohol) Depression Answer Date Recorded Patient Health Questionnaire-9 Score 16 08/28/2023 Depression Answer Date Recorded Patient Health Questionnaire-2 Score 4 08/28/2023 Comments Unknown Sex and Gender Information Value [...] Description 02/22/2025 2:30 PM EDT Office Visit [facility] [address] [place] [phone] Rebeka [facility] [address] [place] [address] documented as of this encounter Procedures Procedure Name Priority Date/Time Associated Diagnosis Comments HM PAP/HPV Routine 02/14/2022 documented in this encounter Results * Hm Pap Smear (02/14/2022) us Historical Provider MD HEALTH MAINTENANCE Final Result documented in this encounter Visit Diagnoses Not on filedocumented in this encounter Additional Health Concerns Assessment Noted Time PHQ-9 Depression Total Score: 19 023 9:06 AM EDT documented as of this encounter Care Teams Welder Boilermaker Relationship Specialty Start Date End Date Debbi Staley FNP [address] [place] [id number] PCP - General Family Medicine 12/27/22 documented as of this encounter
--- OUTSIDE RECORDS SUMMARY | 2025-02-16 18:05 | XMS_ITS | Clinical Summary ---
Author Organization [employer] Address [address] [facility] 7t [place] [address] Care Team Providers Care Kick Press Operator Name Role Phone [facility] Primary Care Provider [phone] Allergies Active Allergy Reactions Criticality Noted Date Comments Shellfish Allergy High 12/14/2022 Other reaction(s): ITCHY THROAT Medications * This document contains information received from the source organization and may not represent a complete record from that organization. Diclofenac Sodium 1 % gelIndications: Muscle spasms of neck Apply twice daily to affected areas 150 g 3 12/14/2022 Active lidocaine (Lidoderm) 5 % patchIndication s:Muscle spasms of neck Apply to affected area and leave on for up to 12 hours 30 patch 3 12/14/2022 Active cholecalciferol (Vitamin D-3) 50 MCG (1999 UT) tablet Take by mouth in the morning. 08/21/2022 Active cyclobenzaprine (Flexeril) 10 MG tabletIndicatio ns:Muscle spasms of neck TAKE 1 TABLET BY MOUTH EVERY 8 HOURS NEEDED FOR MUSCLE SPASMS 30 tablet 3 07/13/2024 Active gabapentin (Neurontin) 100 MG capsuleIndicati ons:Chronic bilateral low back pain with bilateral sciatica Take 1 capsule by oral route nightly. OK to increase to 3 capsule nightly (300mg) if needed for symptom relief 270 capsule 11 08/26/2024 Active omeprazole OTC (PriLOSEC OTC) 20 MG EC tabletIndicatio ns:Chronic bilateral low back pain with bilateral sciatica Take 1 tablet (20 mg) by mouth Once per day. Do not crush, chew, or split. 30 tablet 11 08/26/2024 08/26/20 25 Active hydrOXYzine HCl (Atarax) 25 MG tabletIndicatio ns:YONATHAN (generalized anxiety disorder) TAKE 1 TABLET BY MOUTH EVERY 6 HOURS NEEDED FOR ANXIETY 90 tablet 1 10/16/2024 Active escitalopram (Lexapro) 20 MG tablet Take 20 mg by mouth in the morning. 09/29/2024 Active traZODone (Desyrel) 50 MG tabletIndicatio ns:YONATHAN (generalized anxiety disorder) Take 1 tablet (50 mg) by mouth at bedtime. 90 tablet 3 10/21/2024 10/21/20 25 Active Calcium Carbonate-Vitam in D 600-10 MG-MCG tabletIndicatio ns:Status post bariatric surgery Take 1 tablet by mouth 2 times daily. 180 tablet 3 10/21/2024 10/21/20 25 Active Active Problems Problem Noted Date Diagnosed Date Joint pain 05/10/2024 Overview (05/10/2024): Joint pain-negative CCP, RF, CRP, ESR, 03/2024. Pain mngmt Other chest pain 09/20/2023 Overview (09/20/2023): ? ? 07/23/23-seen in [facility] with CP and SOB. EKG, CXR negative. Extensive hx of recurrent sx. Previously evaluated by cardiology with negative work up. Denies recurrent sx. Spondylosis of lumbar region without myelopathy or radiculopathy 08/27/2023 Major depressive disorder, recurrent episode, un specified 07/22/2023 YONATHAN (generalized anxiety disorder) 07/22/2023 Overview (02/12/2024): lexapro 10mg Remeron 15 mg at bedtime Established with therapist Assessment & Plan (02/12/2024 10:06 AM EDT): Patient self discontinued remeron (weight gain). Advised may restart at lower dose if again struggles with appetite/anxiety START hydroxyzine 25mg q6 hours for sleep anxiety Follow up per therapist and psychiatirst Contact HC if sx worsen or experiencing thoughts of SI or self harm. Pt has [facility] crisis contact information Assessment & Plan (10/08/2023 2:30 PM EST): ?? INCREASE remeron to 15mg at bedtime ?? Continue lexapro 10mg ?? Continue to work with therapist ?? Encouraged acupuncture ?? Contact HC if sx worsen or experiencing thoughts of SI or self harm. Pt has [facility] crisis contact information Assessment & Plan (09/01/2023 6:15 PM EDT): ?? Continue lexapro 10mg ?? START nightly mirtazipine 15mg. Reviewed administration, risks, side effects to include feeling anxious, jittery, or restless, trouble sleeping, fatigue, headaches, nausea or upset stomach, dry mouth, sexual dysfunction and weight gain. Stop taking this medication and seek immediate medical care if experiencing thoughts of suicide, fever, muscle rigidity, changes in blood pressure or heart palpitations. Risk of rare but serious side effects increases if taking multiple medications for depression or anxiety simultaneously. Chronic neck pain 06/29/2023 Overview (06/29/2023): ?? Neg xray 2017 ?? No improvement with PT Hx of bariatric surgery 06/29/2023 Healthcare maintenance 06/29/2023 Overview (02/12/2024): Mammo: q 2 years due to hx multiple breast nodules (benign fibroadenoma) 02/07/2022 Bi-rads 2 Pap: Pap/HPV was negative in 02/20 --> q. 3 years Hx of BOBBY 2 [id number] s/p LEEP cone Followed by Dr. Nash Tachycardia 06/29/2023 Overview (06/29/2023): ?? Followed by cardiology; not a good candidate for beta jose carlos therapy due to low BP ?? Thirty day cardiac event monitor started on 11/07/2022 showed sinus ?? rhythm to sinus tach heart palpitation events correlated with sinus rhythm and sinus tach, pulse ?? rate greater than 100 b/ min 32% of the time, rare PACs and PVCs. Echocardiogram done 11/07/2022 ?? showed normal EF, normal valves. Lab work done 12/12/2022 shows mild anemia with hematocrit 34.6. ?? Last TSH 02/21/2022 0.96. Assessment & Plan (09/01/2023 6:12 PM EDT): ?? Suspect sx r/t anxiety ?? Patient to focus on medication/mindfulness and continue to monitor sx ?? Follow up as scheduled with cardiology Fibroadenoma of breast 02/16/2019 Iron deficiency anemia 02/16/2019 Overview (02/12/2024): Unable to tolerate oral iron Mirena IUD Followed by heme--> stable post IUD. No longer requires heme follow up Migraine without aura and wi thout status migrainosus, not intractable 02/16/2019 Overview (06/29/2023): ?? Saw neurology in [place] ?? Reports normal MRI in CT Chronic low back pain 11/18/2018 Overview (05/10/2024): Previously Followed by pain management without improvement. Does not want to return Failed PNS sprint implantation Assessment & Plan (02/12/2024 10:04 AM EDT): No prior rheumatologic screen--with check inflammatory markers to r/o PMR/RA given persistence in sx and arthralgia Continue per pain mngmt Follow up pending results BOBBY II (cervical intraepithelial neoplasia II) 0 02/07/2018 Overview (02/12/2024): Pap/HPV was negative in 02/20 Hx of BOBBY 2 [id number] s/p LEEP cone Low grade squamous intraepit helial lesion (LGSIL) on cervicovaginal cytologic smear 02/07/2018 Anemia 09/25/2017 Resolved Problems Problem Noted Date Diagnosed Date Resolved Date Anterior knee pain 08/27/2023 3 Arthropathy of facet joint 08/27/2023 1 Breast mass, right 08/27/2023 3 COVID-19 08/27/2023 09/01/2023 IUD check up 08/27/2023 09/01/2023 Nipple discharge 08/27/2023 09/01/2023 Palpitations 08/27/2023 09/01/2023 Pelvic pain 08/27/2023 09/01/2023 Trapezius muscle spasm 08/27/202309/01 Abnormal uterine bleeding 11/18/2018 Obesity (BMI 30.0-34.9) 11/18/2018 10/12/2022 Encounters Date Type Department Care Team Description 02/15/2025 Travel from Last 3 Months Immunizations Name Administration Dates Next Due Hep B, adult 06/12/2018,10/16/2017,09/12/2017 Influenza injectable quadriv alent IIV4 with preservative 09/08/2019,10/16/2017 Influenza injectable quadriv alent preservative free 08/28/2023,09/19/2022,08/25/2021,2019,12/31/2018 Influenza, seasonal, injecta ble, preservative free 09/30/2024 MMR 05/09/2023 Pfizer Covid-19 Vaccine 12+ 09/30/2024 Tdap 08/09/2021 Family History Medical History Relation Name Comments Asthma Father Diabetes Mother Breast cancer Neg Hx Colon cancer Neg Hx Relation Name Status Comments Father Mother Social History Tobacco Use Types Packs/Day Years Used Date Smoking Tobacco: Never Passive Smoke Exposure: Never Smokeless Tobacco: Never Tobacco Cessation:Counseling Given: Not Answered Alcohol Use Standard Drinks/Week Comments Never 0 (1 standard drink = 0.6 oz pur e alcohol) Depression Answer Date Recorded Patient Health Questionnaire-9 Score 8 10/21/2024 Patient Health Questionnaire-9 Score 8 10/21/2024 Last PHQ-9: Questionnaire Data Not on file 1 12/21/2023 Housing Stability Answer Date Recorded What is your housing situation today? I have oliviafaustino wagner 09/18/[address] you [...] Orientation Straight 10/01/2022 10 :32 AM EDT Last Filed Vital Signs Vital Sign Reading Time Taken Comments Blood Pressure 110/72 10/21/2024 8:54 AM EST Pulse 65 10/21/2024 8:54 AM EST Temperature 36.1 ??C (97 ??F) 10/21/2024 8:54 AM EST Respiratory Rate 18 10/21/2024 8:54 AM EST Oxygen Saturation 98% 10/21/2024 8:54 AM EST Inhaled Oxygen Concentration - - Weight 63 kg (139 lb) 10/21/2024 8:54 AM EST Height 149.9 cm (4' 11 ) 10/21/2024 8:54 AM EST Body Mass Index 28.07 10/21/2024 8:54 AM EST Plan of Treatment Upcoming Encounters Date Type Department Care Team (Late st Contact Info) Description 02/22/2025 2:30 PM EDT Office Visit [facility] [address] [place] [address] [facility] [address] [place] [address] Health Maintenance Due Date Last Done Comments Family Planning (PISQ) 2003 SDOH Screening 02/11/2025 02/12/2024 Pap Smear 02/14/2025 02/14/2022 Alcohol/Substance Use Screening 10/21/2025 10/21/2024 Depression Screening 10/21/2025 10/21/2024, 10/21/20 24 Tobacco Screening 10/26/2025 10/26/2024 Cervical Cancer Screening 02/14/2027 HPV/Cotest 02/14/2027 02/14/2022, 01/30, 01/15/2019, Additional history exists DTaP/Tdap/Td Vaccines (2 - Td or Tdap) 08/09/2031 08/09/2021 Zoster Vaccines (1 of 2) 2038 RSV Patients and Patients Aged 60 years or older (1 - 1-dose 75+ series) 2063 Hepatitis B Vaccines Completed 06/12/2018, 10/16/2017, 09/12/2017 HIV Screening Completed 02/14/2023 Hepatitis C Screening Completed 02/14/2023 COVID-19 Vaccine Completed 09/30/2024, , 11/29/2021, Additional history exists Influenza Vaccine Completed 09/30/2024, , 09/19/2022, Additional history exists HIB Vaccines Aged Out No longer eligi ble based on patient's age to complete this topic HPV Vaccines Aged Out No longer eligi ble based on patient's age to complete this topic Hepatitis A Vaccines Aged Out No long er eligible based on patient's age to complete this topic IPV Vaccines Aged Out No longer eligi ble based on patient's age to complete this topic Meningococcal Vaccine Aged Out No florentin deshawn eligible based on patient's age to complete this topic Pneumococcal Vaccine: Pediatrics (0 to 5 Years) and At-Risk Patients (6 to 49) Years) Aged Out No longer eligible based on patient's age to complete this topic RSV under 20 months Aged Out No longe r eligible based on patient's age to complete this topic Rotavirus Vaccines Aged Out No longer eligible based on patient's age to complete this topic Procedures Procedure Name Priority Date/Time Associated Diagnosis Comments HEPATITIS C AB W/REFL TO HCV RNA, QN, PCR Routine 02/14/2023 3:22 PM EDT Healthcare maintenance HIV 1/2 ANTIGEN/ANTIBODY, FOURTH GENERATION W/RFL Routine 02/14/2023 3:22 PM EDT Healthcare maintenance ZZZ HISTORICAL HPV E6/E7 RFLX NANCY 16 18/45 Routine 02/14/2022 11:38 AM EDT HM PAP/HPV Routine 02/14/2022 from Last 3 Months or Most Recently Relevant to Health Maintenance Results * Hepatitis C Antibody with Reflex to HCV, RNA, Quantitative, Real-Time PCR (02/14/2023 3:22 PM EDT) Hepatitis C Antibody NON-REACT AUDELIA NON-REACT AUDELIA [facility] Index 0.02 <1.00 [facility] Comment: HCV antibody was non-reactive. There is no laboratory evidence of HCV infection. In most cases, no further action is required. However, if recent HCV exposure is suspected, a test for HCV RNA (test code 25828) is suggested. For additional information please refer to http://[employer].Pathogenetix/faq/FFJ78v8 (This link is being provided for informational/ educational purposes only.) Blood Venous blood specimen / Unknown 02/14/2023 3:22 PM EDT 02/14/2023 3:23 PM EDT Narrative [facility] - 02/15/2023 1:02 PM EDT FASTING:NO FASTING: NO [facility] LAB BLOOD ORDERABLES Final Re sult [facility] [address], [place] [address] [facility] [address] [place] [address] * HIV-1/2 Antigen and Antibodies, Fourth Generation, with Reflexes (02/14/2023 3:22 PM EDT) HIV Antigen/Antibody, 4th Generation NON-REAC TIVE NON-REAC TIVE [facility] Comment: HIV-1 antigen and HIV-1/HIV-2 antibodies were not detected. There is no laboratory evidence of HIV infection. PLEASE NOTE: This information has been disclosed to you from records whose confidentiality may be protected by state law. ??If your state requires such protection, then the state law prohibits you from making any further disclosure of the information without the specific written consent of the person to whom it pertains, or as otherwise permitted by law. A general authorization for the release of medical or other information is NOT sufficient for this purpose. ?? For additional information please refer to http://[employer].Pathogenetix/faq/XTB952 (This link is being provided for informational/ educational purposes only.) The performance of this assay has not been clinically validated in patients less than 2 years old. Blood Venous blood specimen / Unknown 02/14/2023 3:22 PM EDT 02/14/2023 3:23 PM EDT Narrative [facility] - 02/15/2023 1:02 PM EDT FASTING:NO FASTING: NO [facility] LAB BLOOD ORDERABLES Final Re sult [address], [place] [address] [facility] [address] * HPV E6/E7 RFLX NANCY 16 18/45 (02/14/2022 11:38 AM EDT) [facility] HPV mRNA E6/E7 rflx Not Detected Not Detected [facility] Comment: Methodology: [employer]-Mediated Amplification This assay detects E6/E7 viral messenger RNA (mRNA) from 14 high-risk HPV types (16,18,31,33,35,39,45,51,52,56,58,59,66,68). The analytical performance characteristics of this assay have been determined by [facility]. The modifications have not been cleared or approved by the FDA. This assay has been validated pursuant to the CLIA regulations and is used for clinical purposes. For additional information, please refer to http://[employer].Pathogenetix/faq/ESL065b7 (This link if provided for information/ educational purposes only.) THIS TEST WAS PERFORMED AT: [facility] [address] [place] [address],[address] [place], [place] ??[address] STACEY VARGAS MD 02/14/2022 11:3 8 AM EDT Geronimo Nash MD HISTORICAL/NON ORDERABLE LABS Fi nal Result [facility] [address] * Hm Pap Smear (02/14/2022) Historical Provider HEALTH MAINTENANCE Final Result from Last 3 Months or Most Recently Relevant to Health Maintenance [facility] Care Teams Kick Press Operator Relationship Specialty Start Date End Date Debbi Staley FNP [address] [place] [address] PCP - General Family Medicine 12/27/22
--- OUTSIDE RECORDS SUMMARY | 2025-02-16 18:05 | XMS_ITS | Clinical Summary ---
Author Organization [facility] Address [address] [place] [address] Care Team Providers Care Black Ash Burner Operator Name Role Phone Roberta Quinonez MD Primary Care Provider [phone] Allergies Active Allergy Reactions Criticality Noted Date Comments Other 04/04/2021 Seafood Medications aspirin/acetami nophen/caffeine (EXCEDRIN MIGRAINE ORAL) Take by mouth. Active famotidine (PEPCID ORAL) Take by mouth. Active zinc glycinate 30 mg capsule Take 1 Capsule by mouth daily. Active cholecalciferol (VITAMIN D-3) 1,250 mcg (50,000 unit) capsule Take 1 Capsule by mouth once a week. Active Active Problems Problem Noted Date Diagnosed Date Sciatica 12/17/2024 Allergic arthritis of left knee 12/17/2024 Anxiety 04/28/2021 Eating disorder 04/28/2021 Surgical History Surgery Date Site/Laterality Comments OTHER SURGICAL HISTORY Right PROCEDURE: PA EXC BREAST LES PREOP PLMT RAD MARKER OPEN 1 LES; COMMENT: biopsy and mass was removed, benign WISDOM TOOTH EXTRACTION PROCEDURE: HISTORICAL WISDOM TEETH EXTRACTION Medical History Medical History Date Comments Sciatica DX:Sciatica Allergic arthritis of left knee DX:Allergic arthritis of left knee Class 2 obesity due to exces s calories with body mass index (BMI) of 35.0 to 35.9 in adult 01/30/2021 DX:Class 2 obesity due to ex cess calories with body mass index (BMI) of 35.0 to 35.9 in adult; COMMENT: LABS: 01/09/21 PSYCH: 01/19/21 PCP/PHYSICAL: 10/11/20 NUTRITION CLEARANCE: READY TO SUBMIT: SURGERY: Patient has no comorbidity - she may be denied with a BMI of 35.9 Anxiety 04/28/2021 DX:Anxiety Eating disorder 04/28/2021 DX:Eating disord er Family History Medical History Relation Name Comments Asthma Father No Known Problems Mother Relation Name Status Comments Father Alive Mother Alive Social History Tobacco Use Types Packs/Day Years Used Date Smoking Tobacco: Never Smokeless Tobacco: Never Alcohol Use Standard Drinks/Week Comments Never 0 (1 standard drink = 0.6 oz pur e alcohol) Comments Unknown Sex and Gender Information Value Date Recorded Sex Assigned at Not on file Legal Sex Female 9:43 AM EST Gender Identity Not on file Sexual Orientation Not on file Obstetrics History Last Filed Vital Signs Vital Sign Reading Time Taken Comments Blood Pressure 106/69 06/26/2023 9:43 AM EDT Pulse 78 06/26/2023 9:43 AM EDT Temperature - - Respiratory Rate - - Oxygen Saturation - - Inhaled Oxygen Concentration - - Weight 51.1 kg (112 lb 9.6 oz) 06/26/2023 9:43 A M EDT Height 149.9 cm (4' 11 ) 06/26/2023 9:43 AM EDT Body Mass Index 22.74 06/26/2023 9:43 AM EDT Plan of Treatment Upcoming Encounters Date Type Department Care Team (Late st Contact Info) Description 03/23/2025 8:15 AM EDT Office Visit [facility] [place] [address] [facility] [address] [place] [phone] Eri Michael MD [address] [facility] [address] [place] [address] Health Maintenance Due Date Last Done Comments DTaP,Tdap,and Td Vaccines (1 - Tdap) 2007 Hepatitis B Vaccines (1 of 3 - 19+ 3-dose series) 2007 Cervical Cancer Screening: P ap Smear 2009 Depression Screening 10/30/2022 HIV Screening 10/30/2022 Hepatitis C Screening 10/30/2022 Social Influencers of Health Screening 10/30/2022 COVID-19 Vaccine (1 - 2023-2 5 season) 2024 Influenza Vaccine (#1) 2024 Cholesterol Screening (Lipid Panel) 01/09/2026 01/09/2021 HIB Vaccines Aged Out No longer eligi [...] on patient's age to complete this topic MMR Vaccines Aged Out No longer eligi ble based on patient's age to complete this topic Meningococcal ACWY Vaccine Aged Out N o longer eligible based on patient's age to complete this topic Meningococcal B Vacine Aged Out No lo nger eligible based on patient's age to complete this topic Pneumococcal Vaccine: Pediat rics (0 to 5 Years) and At-Risk Patients (6 to 64 Years) Aged Out No longer eligi ble based on patient's age to complete this topic RSV Immunization Patients Un sandra 20 months Aged Out No longer eligible b ased on patient's age to complete this topic Varicella Vaccines Aged Out No longer eligible based on patient's age to complete this topic Procedures Procedure Name Priority Date/Time Associated Diagnosis Comments LIPID PANEL Routine 01/09/2021 from Last 3 Months or Most Recently Relevant to Health Maintenance Results * (ABNORMAL) Lipid panel (01/09/2021) LDL/HDL Ratio 3 0 - 4 Triglycerides 56 0 - 150 mg/dL Cholesterol 184 0 - 200 mg/dL HDL 67 >=40 mg/dL LDL Cholesterol 106(A) 0 - 100 mg/dL Blood Venous blood specimen / Unknown [facility] Provider LAB BLOOD ORDERABLES Catarina l Result from Last 3 Months or Most Recently Relevant to Health Maintenance Insurance [employer] Care Teams Black Ash Burner Operator Relationship Specialty Start Date End Date Roberta Quinonez MD [address] [place] [address] PCP - General Predatory Hunter 10/13/20
--- OUTSIDE RECORDS SUMMARY | 2025-02-16 18:05 | XMS_ITS | Encounter Summary ---
Author Organization [employer] Address [address] [facility] [address] [place] [address] Care Team Providers Care Crayon Sawyer Name Role Phone [facility] Primary Care Provider [phone] Encounter Details Date Type Department Care Team (Latest Contact Info) Description 02/15/2025 Travel Social History Tobacco Use Types Packs/Day Years [...] Description 02/22/2025 2:30 PM EDT Office Visit [facility] [address] [place] [address] Debbi Staley FNP [address] [place] [address] documented as of this encounter Visit Diagnoses Not on filedocumented in this encounter Additional Health Concerns Assessment Noted Time PHQ-9 Depression Total Score: 8 10/21/20 24 9:01 AM EST documented as of this encounter Care Teams Crayon Sawyer Relationship Specialty Start Date End Date Debbi Staley FNP [address] [place] [address] PCP - General Family Medicine 12/27/22 documented as of this encounter
--- OUTSIDE RECORDS SUMMARY | 2025-02-16 18:05 | XMS_ITS | Encounter Summary ---
Author Organization [employer] Address [address] [facility] [address] [place] [address] Care Team Providers Care Entry Level Manufacturing Engineer Name Role Phone [facility] Primary Care Provider [phone] Reason for Visit * Reason Onset Date Comments Med Refill 09/18/2023 Encounter Details Date Type Department Care Team ([facility] st Contact Info) Description 09/18/2023 Refill [facility] [address] [place] [address] Christine Muhammad FNP Social History Tobacco Use Types Packs/Day Years Used Date Smoking Tobacco: Never Passive Smoke Exposure: Never Smokeless Tobacco: Never Alcohol Use Standard Drinks/Week Comments Never 0 (1 standard drink = 0.6 oz pur e alcohol) Depression Answer Date Recorded Patient Health Questionnaire-9 Score 16 08/28/2023 Housing Stability Answer Date Recorded What is [...] Description 02/22/2025 2:30 PM EDT Office Visit [facility] [address] [place] [address] Debbi Staley FNP [address] [place] [address] documented as of this encounter Visit Diagnoses Not on filedocumented in this encounter Additional Health Concerns Assessment Noted Time PHQ-9 Depression Total Score: 16 023 11:37 AM EDT documented as of this encounter Care Teams Entry Level Manufacturing Engineer Relationship Specialty Start Date End Date Debbi Staley FNP [address] [place] [address] PCP - General Family Medicine 12/27/22 documented as of this encounter
--- OUTSIDE RECORDS SUMMARY | 2025-02-16 18:05 | XMS_ITS | Encounter Summary ---
Author Organization [employer] Address [address] [facility] 7t [place] [address] Care Team Providers Care High School Coordinator Name Role Phone [place] [facility] Primary Care Provider [phone] Reason for Visit * Reason Comments Med Refill Encounter Details Date Type Department Care Team ([facility] st Contact Info) Description 09/18/2023 Refill [facility] [address] [place] [address] Christine Muhammad FNP Social History Tobacco Use Types Packs/Day Years Used Date Smoking Tobacco: Never Passive Smoke Exposure: Never Smokeless Tobacco: Never Alcohol Use Standard Drinks/Week Comments Never 0 (1 standard drink = 0.6 oz pur e alcohol) Depression Answer Date Recorded Patient Health Questionnaire-9 Score 16 08/28/2023 Housing Stability Answer Date Recorded What is your housing situation today? I have olviiafaustino wagner 09/18/[address] you [...] Description 02/22/2025 2:30 PM EDT Office Visit [facility] [address] [place] [address] Debbi Staley FNP [address] [place] [address] documented as of this encounter Visit Diagnoses Not on filedocumented in this encounter Additional Health Concerns Assessment Noted Time PHQ-9 Depression Total Score: 16 023 11:37 AM EDT documented as of this encounter Care Teams High School Coordinator Relationship Specialty Start Date End Date Debbi Staley FNP [address] [place] [address] PCP - General Family Medicine 12/27/22 documented as of this encounter
--- OUTSIDE RECORDS SUMMARY | 2025-02-16 18:05 | XMS_ITS | Encounter Summary ---
Author Organization [employer] Address [address] [facility] 7[address] [place] [address] Care Team Providers Care Supervisor [place] Name Role Phone [facility] Primary Care Provider [phone] Reason for Visit * Reason Onset Date Comments Med Refill 09/18/2023 Encounter Details Date Type Department Care Team ([facility] st Contact Info) Description 09/18/2023 Refill [facility] MEDICINE [address] [place], [place] [phone] [facility] [address] [place] [address] Muscle spasms of neck; YONATHAN (generalized anxiety disorder) Social History Tobacco Use Types Packs/Day Years [...] Description 02/22/2025 2:30 PM EDT Office Visit [facility] MEDICINE [address] [place] [address] Debbi Staley FNP [address] [place] [address] documented as of this encounter Visit Diagnoses Diagnosis Muscle spasms of neck YONATHAN (generalized anxiety disorder) Generalized anxiety disorder documented in this encounter Additional Health Concerns Assessment Noted Time PHQ-9 Depression Total Score: 16 023 11:37 AM EDT documented as of this encounter Care Teams Supervisor [place] Relationship Specialty Start Date End Date Debbi Staley FNP [address] [place] [address] PCP - General Family Medicine 12/27/22 documented as of this encounter
== END ==
PROVIDERS: PCP Registered Nurse; Visit Provider Anesthesiology
DX: M53.3 Sacrococcygeal disorders, not elsewhere classified (principal); M46.1 Sacroiliitis, not elsewhere classified
CPT/HCPCS: 27096

== ENCOUNTER 2025-02-22 15:00 | Outpatient (REF) | payer OTHER, SELFPAY ==
[2025-02-22 16:12] LABS: MANUAL DIFF FLAG NO
[2025-02-22 16:25] LABS: Basophils Percent Auto 0.5 % (0-2); Eosinophils Absolute Auto 0.1 X10*3/uL (0.0-0.4); Eosinophils Percent Auto 0.8 % (0-4); Hematocrit 32.5 % (37.0-47.0); Hemoglobin 10.8 g/dl (12.0-16.0); Imm Gran Abs Auto 0.02 X10*3/uL (0.00-0.03); Imm Gran Pct Auto 0.3 % (0.0-0.4); Lymphocytes Percent Auto 30.9 % (20-40); Mean Corpuscular HGB Conc 33.2 g/dl (31.0-35.0); Mean Corpuscular Hemoglobin 29.2 pg (27.0-33.0); Mean Corpuscular Volume 87.8 fL (80.0-98.0); Monocytes Absolute Auto 0.7 X10*3/uL (0.1-1.2); Monocytes Percent Auto 10.2 % (2-11); Neutrophils Absolute Auto 3.7 x10*3/uL (2.0-8.3); Neutrophils Percent Auto 57.3 % (45-73); Platelet Count 326 X10*3/uL (160-400); Red Cell Distribution Width 12.4 % (11.0-16.0); White Blood Count 6.5 X10*3/uL (4.8-10.8)
== END 2025-02-22 15:01 | disposition home or self-care (01) ==
LOC: HO.HHCL 15:00
PROVIDERS: Visit Provider Registered Nurse
DX: R53.83 Other fatigue (principal)
CPT/HCPCS: 36415; 85025

== ENCOUNTER 2025-02-24 08:41 | Outpatient (AMB) | payer OTHER, SELFPAY ==
[2025-02-24 09:02] VITALS: BP 100/66; PULSE 82; O2SAT 100; BMI 28.3
--- NOTE | 2025-02-24 09:02 | A.OFFVIS_ITS ---
Vital Signs 02/24/25 09:02 Height 4 ft 11 in Weight 140 lb BMI 28.3 BP 100/66 Blood Pressure Location Rt brachial Position Sitting Pulse 82 Pulse Source Pulse Oximeter Pulse Oximetry (%) 100 Oxygen Delivery Method Room Air Intake Visit Reasons: RIGHT SIJ INJECTION/time changed per patient Polymerization Helper Required: No Allergies SEAFOOD Allergy (Severe, Uncoded 02/24/25 09:03) ITCHY THROAT shellfish Allergy (Unknown, Uncoded 02/24/25 09:03) ITCHY THROAT Medication List - Last Reconciled 02/24/25 by Joanne Valverde, CLINICAL LABORATORY AIDE [id number] 250-250-65 mg (Excedrin Migraine) 1 tab PO Q4-6H PRN baclofen 5 mg PO BID PRN diclofenac sodium 3% 1 appl topical BID escitalopram oxalate (Lexapro) 5 mg PO DAILY famotidine 10 mg PO DAILY hydroxyzine HCl 25 mg PO Q6H PRN levonorgestrel (Mirena) intrauterine mirtazapine (Remeron) 15 mg PO BEDTIME HPI Comments Details: Rika is back in my office with complains on severe pain in the neck and moderate pain in the lower back. In the past she received therapeutic C4-C5 C6 medial branch block which relieves her pain for the long period of time. She had tried before that sprint PNS however she was unable to keep the electrodes in position. She also complains on pain in lower back related to her right sacroiliac joint - radiating to the right.. She had diagnostic sacroiliac joint injection on the right she reported 6 hours of complete pain relief, she reported that after this 6 hours the pain started to slowly come back. Her pain is getting aggravated to the moderate level at this time. She wants me to perform steroid injection for the right sacroiliac joint. She had also axial lower back pain which was treated with sprint PNS in the past. She does not complain on that pain at this time. She reports that she understands that a nature of her pain is related to most likely multiple arthritis sites. We agreed that I will schedule her for repeat therapeutic C4, C5, C6 bilateral medial branch block to treat the pain in the neck. One month after that I will perform therapeutic sacroiliac joint injection on the right. [facility] Medical History Arthritis Chronic neck pain Obesity Dysplasia of cervix, low grade (BOBBY 1) Sciatica Abnormal uterine bleeding Fibroadenoma Migraine Anemia Surgical History History of wisdom tooth extraction History of lumpectomy of right breast (01/28/20) Hx of gastric bypass H/O tubal ligation Family History Father Asthma Social History Household Members: Children Housing: House Are you a primary healthcare representative to a significant other at home: Yes (children) Do you presently have visiting nurse or other home services: No Alcohol intake: never Patient Tobacco Use Status: Never used Tobacco service: No Current occupational status: employed Current occupation: [employer] /rt handed Female Reproductive History Menstrual Age of Menarche: 8 Review of Systems Const All systems reviewed & are unremarkable except as noted in HPI and below ENT Reports Normal hearing present Neuro Reports Normal hearing present, Denies Abnormal speech present, Denies confusion and Denies Sensory deficit (Neuro) Psych Denies confusion Physical Exam Vital Signs: Last Vital Signs Pulse 82 02/24/25 09:02 BP 100/66 02/24/25 09:02 Pulse Ox 100 02/24/25 09:02 Oxygen Delivery Method Room Air 02/24/25 09:02 BMI result Body Mass Index 28.3 Const General: no acute distress; No confusion Orientation/consciousness: patient oriented x3 and No confusion Eyes General: appearance normal, both eyes and all related structures Pupils: Equal, round and reactive pupils present EOM: EOMs intact bilaterally Neck Other: Normal strength of bilateral upper extremities right compared to the left. She denies numbness in bilateral upper extremities. She denies headache. Valsalva maneuver does not aggravate her pain. Neck: No full ROM Chest Chest palpation & inspection: normal inspection of the chest Resp Effort & Inspection: normal respiratory effort, able to speak in complete sentences, normal respiratory pattern, no audible wheezes and no cough Cardio Jugular venous distension: no JVD GI Inspection: Yes normal to inspection Back/Spine/Pelvis Other: Positive Dangelo test on the right. Positive pelvic compression and pelvic distraction test on the right. Positive thigh thrust test on the right. Positive 14 finger test on the right. Neuro General: patient oriented x3, gait normal and No confusion Cranial nerves: Yes CN's II-XII intact bilaterally, Yes Equal, round and reactive pupils present, Yes Normal hearing present and Yes Ability to bilaterally elevate shoulders present Speech: No Abnormal speech present Gait exam (Neuro): Normal gait present Motor exam (neuro): 5/5 motor strength present throughout Sensory Exam: No Sensory deficit (Neuro) Extrem General: No pedal edema Psych Speech and movement: Normal speech and movement present Affect: normal affect Attitude: cooperative Thought process: Normal thought process present Thought content: Normal thought content present Insight: Good insight present (Psych) Judgement: Good judgement present (Psych) Results Reviewed Results Reviewed: MR LUMBAR SPINE WITHOUT CONTRAST CLINICAL INFORMATION: Bilateral lower back pain with sciatica. COMPARISON: None available. TECHNIQUE: MRI of the lumbar spine was obtained using routine sequences without contrast. FINDINGS: Normal anatomic alignment. Normal, homogeneous marrow signal throughout. The vertebral body heights are maintained. The intervertebral discs are of normal height and signal. The conus medullaris terminates at the level of L1-L2. The distal spinal cord is normal in appearance. No significant abnormalities of the paraspinal musculature. Limited evaluation of the intra-abdominal structures without significant abnormalities. The abdominal aorta is of normal contour and caliber. AXIAL SPINAL LEVELS: L1-L2: Normal annular contour. There is mild right and no left facet joint arthropathy. There is no neural foraminal stenosis. There is no spinal canal stenosis. L2-L3: Shallow diffuse disc bulge. There is mild bilateral facet joint arthropathy. There is no neural foraminal stenosis. There is no spinal canal stenosis. L3-L4: Normal annular contour. There is mild bilateral facet joint arthropathy. There is mild bilateral neural foraminal stenosis. There is no spinal canal stenosis. L4-L5: Shallow diffuse disc bulge. There is mild bilateral facet joint arthropathy. There is mild bilateral neural foraminal stenosis. There is no spinal canal stenosis. L5-S1: Normal annular contour. There is mild bilateral facet joint arthropathy. There is mild bilateral neural foraminal stenosis. There is no spinal canal stenosis. IMPRESSION: Mild multilevel degenerative spondyloarthropathy of the lumbar spine as described in detail above. No overt spinal canal stenosis or nerve root compression. XR CERVICAL SPINE FINDINGS: Cervical alignment preserved. Cervical vertebral body disc space heights are maintained. Mild spondylosis in the lower cervical spine. Bilateral neural foramina are patent. IMPRESSION: Mild spondylosis in the lower cervical spine. Assessment & Plan Assessment & Plan (1) Spondylosis of cervical region without myelopathy or radiculopathy: Code(s): M47.812 - Spondylosis without myelopathy or radiculopathy, cervical region Category: Medical (2) Arthropathy of facet joint: Code(s): M47.819 - Spondylosis without myelopathy or radiculopathy, site unspecified Category: Medical (3) Chronic pain syndrome: Code(s): G89.4 - Chronic pain syndrome Category: Medical (4) Myofascial neck pain: Code(s): M54.2 - Cervicalgia Category: Medical (5) Sacroiliitis: Code(s): M46.1 - Sacroiliitis, not elsewhere classified Category: Medical (6) Sacroiliac joint dysfunction of right side: Code(s): M53.3 - Sacrococcygeal disorders, not elsewhere classified Category: Medical Plan Her neck pain came back. I will schedule her for therapeutic C4, C5, C6 medial branch block. The patient had good results of this injection in the past. One month after that I will perform therapeutic right sacroiliac joint injection. After right diagnostic sacroiliac joint injection she had 0 pain in the area of the right sacroiliac joint for 6 hours. I will see the patient after each procedure. Patient Instructions: I here by testify that I spent 32 minutes in conversation with this patient as well as planning her care and organizing this note. Coding Level of Care Code Est Pt Level 4 (44941) Diagnoses Spondylosis of cervical region without myelopathy or radiculopathy M47.812 Arthropathy of facet joint M47.819 Chronic pain syndrome G89.4 Myofascial neck pain M54.2 Sacroiliitis M46.1 Sacroiliac joint dysfunction of right side M53.3
== END 2025-02-24 09:12 | disposition home or self-care (01) ==
LOC: HO.PMC 08:42
PROVIDERS: PCP Registered Nurse; Visit Provider Anesthesiology
DX: M47.812 Spondylosis without myelopathy or radiculopathy, cervical region (principal); M47.819 Spondylosis without myelopathy or radiculopathy, site unspecified; G89.4 Chronic pain syndrome; M54.2 Cervicalgia; M46.1 Sacroiliitis, not elsewhere classified; M53.3 Sacrococcygeal disorders, not elsewhere classified
CPT/HCPCS: 99214

== ENCOUNTER 2025-04-07 10:24 | Outpatient (REF) | payer OTHER, SELFPAY ==
--- OUTSIDE RECORDS SUMMARY | 2025-04-07 11:47 | XMS_ITS | Clinical Summary ---
Author Organization [employer] Address [address] [facility] [address] [place] [address] Care Team Providers Care Case Mgr Name Role Phone [facility] Primary Care Provider [phone] Allergies Active Allergy Reactions Criticality Noted Date Comments Shellfish Allergy High 12/14/2022 Other reaction(s): ITCHY THROAT Medications * This document contains information received from the source organization and may not represent a complete record from that organization. Diclofenac Sodium 1 % gelIndications:M uscle spasms of neck Apply twice daily to affected areas 150 g 3 12/14/19 23 Active lidocaine (Lidoderm) 5 % patchIndications :Muscle spasms of neck Apply to affected area and leave on for up to 12 hours 30 patch 3 12/14/19 23 Active cyclobenzaprine (Flexeril) 10 MG tabletIndication s:Muscle spasms of neck TAKE 1 TABLET BY MOUTH EVERY 8 HOURS NEEDED FOR MUSCLE SPASMS 30 tablet 3 02/23/20 25 Active hydrOXYzine HCl (Atarax) 25 MG tabletIndication s:YONATHAN (generalized anxiety disorder) TAKE 1 TABLET BY MOUTH EVERY 6 HOURS NEEDED FOR ANXIETY 90 tablet 1 02/23/20 25 Active topiramate (Topamax) 25 MG tabletIndication s:Overeating disorder Take 1 tablet (25 mg) by mouth before evening meal. 30 tablet 11 02/23/20 25 026 Active cholecalciferol (Vitamin D-3) 50 MCG (1999) tablet Take by mouth in the morning. 08/21/20 22 025 Discontinued gabapentin (Neurontin) 100 MG capsuleIndicatio ns:Chronic bilateral low back pain with bilateral sciatica Take 1 capsule by oral route nightly. OK to increase to 3 capsule nightly (300mg) if needed for symptom relief 270 capsule 11 08/26/20 24 025 Discontinued omeprazole OTC (PriLOSEC OTC) 20 MG EC tabletIndication s:Chronic bilateral low back pain with bilateral sciatica Take 1 tablet (20 mg) by mouth Once per day. Do not crush, chew, or split. 30 tablet 11 08/26/20 24 025 Discontinued Calcium Carbonate-Vitami n D 600-10 MG-MCG tabletIndication s:Status post bariatric surgery Take 1 tablet by mouth 2 times daily. 180 tablet 3 10/21/20 24 025 Discontinued ferrous gluconate (Fergon) 324 (38 Fe) MG tabletIndication s:Iron deficiency anemia, unspecified iron deficiency anemia type Take 1 tablet (324 mg) by mouth every other day. 15 tablet 3 03/01/20 025 Discontinued docusate sodium (Colace) 100 MG capsuleIndicatio ns:Constipation, unspecified constipation type Take 1 capsule (100 mg) by mouth if needed in the morning and at bedtime for constipation . 60 capsule 3 03/01/20 025 Discontinued Active Problems Problem Noted Date Diagnosed Date Reduced vision 04/07/2025 Encounter for preventive care 04/07/2025 Joint pain 05/10/2024 Overview (05/10/2024): Joint pain-negative CCP, RF, CRP, ESR, 03/2024. Pain mngmt Other chest pain 09/20/2023 Overview (09/20/2023): ? ? 07/23/23-seen in [facility] ED with CP and SOB. EKG, CXR [...] q. 3 years Hx of BOBBY 2 [id number] s/p LEEP cone Followed by Dr. Saad Mckinney 06/29/2023 Overview (06/29/2023): ?? Followed by cardiology; [...] 02/16/2019 Overview (06/29/2023): ?? Saw neurology in [place] ?? Reports normal MRI in [place] Chronic low back pain 11/18/2018 Overview (05/10/2024): [...] negative in 02/20 Hx of BOBBY 2 [id number] s/p LEEP cone Low grade squamous intraepit [...] Abnormal uterine bleeding 11/18/2018 Obesity (BMI 30.0-34.9) 11/18/201812/2022 Encounters Date Type Department Care Team Description 04/07/2025 10:45 AM EDT Office Visit [address] [address] Megan Lai MD Encounter for preventive care (Primary Dx); Reduced vision 04/07/2025 Travel 04/06/[address] [address] Debbi Staley FNP Chart Prep 04/06/2025 Travel 04/06/[address] [address] Debbi Staley FNP Lab Orders 02/26/[address] [address] Fiorella Love RN Iron deficiency anemia, unspecified iron deficiency anemia type; Constipation, unspecified constipation type 02/22/2025 2:30 PM EDT Office Visit [address] [address] Debbi Staley FNP Overeating disorder (Primary Dx); Weight gain; Other fatigue; Overweight (BMI 25.0-29.9); Dietary counseling; Exercise counseling 02/22/2025 Travel 02/21/20[address] [facility] [place] [address] Ada [place], [facility] Chronic bilateral low back pain with bilateral sciatica 02/21/2025 Refill [facility] MEDICINE [address] [facility] [place] [address] Ada [facility] Muscle spasms of neck; YONATHAN (generalized anxiety disorder) 02/21/2025 Refill [facility] MEDICINE [address] [facility] [place] [address] Ada [facility] YONATHAN (generalized anxiety disorder) 02/15/2025 Travel from Last 3 Months Immunizations [...] housing situation today? I have olivia wagner 04/07/[address] you li ve. Do you have problems with any of the following? None of the above 04/07/2025 Food Insecurity Answer Date Recorded Within the past 12 months, y ou worried that your food would run out before you got money to buy more: Never True 04/07/2025 Within the past 12 months,th e food you bought just didn't last and you didn't have enough money to get more: Never True 06/2025 Transportation Answer Date Recorded In the past 12 months, has l ack of transportation kept you from medical appts, meetings, work or from getting things needed for daily living? No 04/07/2025 Utilities Answer Date Recorded In the past 12 months, has t he electric, gas, oil or water company threatened to shut off services in your home? No 04/07/2025 Depression Answer Date Recorded Patient Health Questionnaire-2 Score 2 10/21/2024 Internet Access Answer Date Recorded Internet Access Q1 No 04/07/2025 Internet Access Q2 I do not want or need it 06/2025 Comments No Sex and Gender Information Value Date Recorded Sex Assigned at Female 10/01/2022 10:32 AM EDT Legal Sex Female 10:32 AM EDT Gender Identity Female 10/01/2022 10:32 AM EDT Sexual Orientation Straight 10/01/2022 10 :32 AM EDT Last Filed Vital Signs Vital Sign Reading Time Taken Comments Blood Pressure 110/75 04/07/2025 11:12 AM EDT Pulse 72 04/07/2025 11:12 AM EDT Temperature 36.4 ??C (97.6 ??F) 04/07/2025 11:12 AM E DT Respiratory Rate 20 04/07/2025 11:12 AM EDT Oxygen Saturation 98% 10/21/2024 8:54 AM EST Inhaled Oxygen Concentration - - Weight 62 kg (136 lb 9.6 oz) 04/07/2025 11:12 AM EDT Height 149.9 cm (4' 11 ) 04/07/2025 11:12 AM EDT Body Mass Index 27.59 04/07/2025 11:12 AM EDT Plan of Treatment Health Maintenance Due Date Last Done Comments Family Planning (PISQ) 2003 Pap Smear 02/14/2025 02/14/2022 Alcohol/Substance Use Screening 10/21/2025 10/21/2024 Depression Screening 10/21/2025 10/21/2024, 10/21/20 24 SDOH Screening 04/07/2026 04/07/2025 Tobacco Screening 04/07/2026 04/07/2025 Cervical Cancer Screening 02/14/2027 HPV/Cotest 02/14/2027 02/14/2022, [...] Procedure Name Priority Date/Time Associated Diagnosis Comments AMB REFERRAL TO WEIGHT MANAGEMENT Routine 03/30/2025 Overweight (BMI 25.0-29.9) CBC WITH AUTO DIFFERENTIAL Routine 02/22/2025 3:05 PM EDT Other fatigue HEPATITIS C AB W/REFL TO HCV RNA, QN, PCR Routine 02/14/2023 3:22 PM EDT Healthcare maintenance HIV 1/2 ANTIGEN/ANTIBODY, FOURTH GENERATION W/RFL Routine 02/14/2023 3:22 PM EDT Healthcare maintenance ZZZ HISTORICAL HPV E6/E7 RFLX NANCY 16 18/45 Routine 02/14/2022 11:38 AM EDT HM PAP/HPV Routine 02/14/2022 from Last 3 Months or Most Recently Relevant to Health Maintenance Results * Referral to Weight Management (03/30/2025) [facility] [address] PACKER OPERATOR OUTPATIENT REFERRAL ORDERABLE S Final Result * (ABNORMAL) CBC auto differential (02/22/2025 3:05 PM EDT) White Blood Count 6.5 4.8 - 10.8 X10*3/uL [facility] Red Blood Count 3.70(L) 4.20 - 5.50 X10*6/uL [facility] Hemoglobin 10.8(L) 12.0 - 16.0 g/dl [facility] Hematocrit 32.5(L) 37.0 - 47.0 % [facility] Mean Corpuscular Volume 87.8 80.0 - 98.0 fL [facility] Mean Corpuscular Hemoglobin 29.2 27.0 - 33.0 pg [facility] Mean Corpuscular HGB Conc 33.2 31.0 - 35.0 g/dl [facility] Red Cell Distribution Width 12.4 11.0 - 16.0 % [facility] Platelet Count 326 160 - 400 X10*3/uL [facility] Mean Platelet Volume 9.0(L) 9.4 - 12.3 fL [facility] Neutrophils Percent Auto 57.3 45 - 73 % [facility] Imm Gran Pct Auto 0.3 0.0 - 0.4 % [facility] Lymphocytes Percent Auto 30.9 20 - 40 % [facility] Monocytes Percent Auto 10.2 2 - 11 % [facility] Eosinophils Percent Auto 0.8 0 - 4 % [facility] Basophils Percent Auto 0.5 0 - 2 % [facility] NRBC Pct Auto 0.0 0.0 - 0.2 /100WBC [facility] Neutrophils Absolute Auto 3.7 2.0 - 8.3 x10*3/uL [facility] Imm Gran Abs Auto 0.02 0.00 - 0.03 X10*3/uL [facility] Lymphocytes Absolute Auto 2.0 1.2 - 4.9 X10*3/uL [facility] Monocytes Absolute Auto 0.7 0.1 - 1.2 X10*3/uL [facility] Eosinophils Absolute Auto 0.1 0.0 - 0.4 X10*3/uL [facility] Basophils Absolute Auto 0.0 0.0 - 0.2 X10*3/uL [facility] NRBC Abs Auto 0.000 0.0 - 0.012 X10*3/uL [facility] Blood Venous blood specimen / Unknown 02/22/2025 3:05 PM EDT 02/22/2025 4:02 PM EDT [facility] LAB BLOOD ORDERABLES Final Re sult [facility] [address] [place] [phone] * Hepatitis C Antibody with Reflex to HCV, RNA, Quantitative, Real-Time PCR (02/14/2023 3:22 PM EDT) Hepatitis C Antibody NON-REACT AUDELIA NON-REACT AUDELIA [facility] [place] URBANARAt Index 0.02 <1.00 [facility] [place] [facility] Comment: HCV antibody was non-reactive. There is no laboratory evidence of HCV infection. In most cases, no further action is required. However, if recent HCV exposure is suspected, a test for HCV RNA (test code 76421) is suggested. For additional information please refer to http://education.N-1-1/faq/ZGP07u2 (This link is being provided for informational/ educational purposes only.) Blood Venous blood specimen / Unknown 02/14/2023 3:22 PM EDT 02/14/2023 3:23 PM EDT Narrative [facility] - 02/15/2023 1:02 PM EDT FASTING:NO FASTING: NO [facility] LAB BLOOD ORDERABLES Final Re sult [facility] [address] [place] [address] [facility] [place] [facility] [address] [place] [address] * HIV-1/2 Antigen and Antibodies, Fourth Generation, with Reflexes (02/14/2023 3:22 PM EDT) Pathologist [facility] HIV Antigen/Antibody, 4th Generation NON-REAC TIVE NON-REAC TIVE [facility] [place] [facility] Comment: HIV-1 antigen and HIV-1/HIV-2 antibodies were [...] ?? For additional information please refer to http://education.Populis.WellnessFX/faq/EFP694 (This link is being provided for informational/ educational purposes only.) The performance of this assay has not been clinically validated in patients less than 2 years old. Blood Venous blood specimen / Unknown 02/14/2023 3:22 PM EDT 02/14/2023 3:23 PM EDT Narrative [facility] - 02/15/2023 1:02 PM EDT FASTING:NO FASTING: NO [facility] LAB BLOOD ORDERABLES Final Re sult [facility] [address], [place] [address] [facility] [place] [facility] [address] [place] [address] * HPV E6/E7 RFLX NANCY 16 18/45 (02/14/2022 11:38 AM EDT) HPV mRNA E6/E7 rflx Not Detected Not Detected [facility] Comment: Methodology: Crowning Hammer Operator-Mediated Amplification This assay detects E6/E7 viral messenger RNA (mRNA) from 14 high-risk HPV types (16,18,31,33,35,39,45,51,52,56,58,59,66,68). The analytical performance characteristics of this assay have been determined by [facility]. The modifications have not been cleared or approved by the FDA. This assay has been validated pursuant to the CLIA regulations and is used for clinical purposes. For additional information, please refer to http://education.N-1-1/faq/XFE589r4 (This link if provided for information/ educational purposes only.) THIS TEST WAS PERFORMED AT: [facility] [address] [place] [address],[address] [place], [place] ??[phone] STACEY VARGAS MD 02/14/2022 11:3 8 AM EDT Geronimo Nash MD HISTORICAL/NON ORDERABLE LABS Fi nal Result [facility] [address] * Hm Pap Smear (02/14/2022) Historical Provider HEALTH MAINTENANCE Final Result from Last 3 Months or Most Recently Relevant to Health Maintenance Insurance [facility] [employer] [place] Care Teams Case Mgr Relationship Specialty Start Date End Date Debbi Staley FNP [address] [place] [id number] PCP - General Family Medicine 12/27/22
--- OUTSIDE RECORDS SUMMARY | 2025-04-07 11:47 | XMS_ITS | Encounter Summary ---
Author Organization [employer] Address 75 [facility] 7t [place] [address] Care Team Providers Care Spreading Machine Operator Name Role Phone [facility] Primary Care Provider [phone] Encounter Details Date Type Department Care Team (Latest Contact Info) Description 04/06/2025 Travel Social History Tobacco Use Types Packs/Day [...] as of this encounter Plan of Treatment Not on file documented as of this encounter Visit Diagnoses Not on filedocumented in this encounter Additional Health Concerns Assessment Noted Time PHQ-9 Depression Total Score: 8 10/21/20 24 9:01 AM EST documented as of this encounter Care Teams Spreading Machine Operator Relationship Specialty Start Date End Date Debbi Staley FNP [address] [place] [address] PCP - General Family Medicine 12/27/22 documented as of this encounter
--- OUTSIDE RECORDS SUMMARY | 2025-04-07 11:47 | XMS_ITS | Encounter Summary ---
Author Organization [employer] Address [address] [place] [address] 7t [place] [address] Care Team Providers Care Data Entry Supervisor Name Role Phone [facility] Primary Care Provider [phone] Reason for Referral * Consultation (Routine) - Authorized Specialty Diagnoses / Procedures Referred By Dolly bell Referred To Contact Optometry Diagnoses Reduced vision Megan Lai MD [address] [place] [address] Phone: tel: fax: [facility] [address] [place] [address] Phone: tel: fax: Referral ID Status Reason Start Date Expiration Date Visits Requested Visits Authorized [id number] Authorized Consult and Treat 04/07/2025 04/07/2026 1 1 Encounter Details Date Type Department Care Team (Late st Contact Info) Description 04/07/2025 10:45 AM EDT Office Visit [facility] [address] [place] [address] Megan Lai MD [address] [place] [address] [phone] Encounter for preventive care (Primary Dx); Reduced vision Social History Tobacco Use Types Packs/Day Years [...] AM EDT documented as of this encounter Last Filed Vital Signs Vital Sign Reading Time Taken Comments Blood Pressure 110/75 04/07/2025 11:12 AM EDT Pulse 72 04/07/2025 11:12 AM EDT Temperature 36.4 ??C (97.6 ??F) 04/07/2025 11:12 AM E DT Respiratory Rate 20 04/07/2025 11:12 AM EDT Oxygen Saturation - - Inhaled Oxygen Concentration - - Weight 62 kg (136 lb 9.6 oz) 04/07/2025 11:12 AM EDT Height 149.9 cm (4' 11 ) 04/07/2025 11:12 AM EDT Body Mass Index 27.59 04/07/2025 11:12 AM EDT documented in this encounter Plan of Treatment Scheduled Referrals Name Type Priority Associated Diagnoses Orde r Schedule Referral to [facility] Outpatient Referral Routine Reduced vision Expected: 04/07/2025 (Approximate), Expires: 04/07/2026 documented as of this encounter Visit Diagnoses Diagnosis Encounter for preventive care- Primary Reduced vision Unspecified visual loss documented in this encounter Additional Health Concerns Assessment Noted Time PHQ-9 Depression Total Score: 8 10/21/20 24 9:01 AM EST documented as of this encounter Care Teams Data Entry Supervisor Relationship Specialty Start Date End Date Debbi Staley FNP [address] [place] [address] PCP - General Family Medicine 12/27/22 documented as of this encounter
--- OUTSIDE RECORDS SUMMARY | 2025-04-07 11:47 | XMS_ITS | Encounter Summary ---
Author Organization [facility] Address [id number] [place] [phone] Care Team Providers Care Dental Service Technician Name Role Phone Roberta Quinonez MD Primary Care Provider [phone] Reason for Visit * Reason Onset Date Comments Labs Only 03/31/2025 Lab orders Encounter Details Date Type Department Care Team (Late Contact Info) Description 03/31/2025 Telephone Bariatric Surgery [facility] [address] [phone] Eri Michael MD [address] [phone] Labs Only (Lab orders) Social History Tobacco Use Types Packs/Day Years Used Date Smoking Tobacco: Never Smokeless Tobacco: Never Alcohol Use Standard Drinks/Week Comments Never 0 (1 standard drink = 0.6 oz pur e alcohol) Comments Unknown Sex and Gender Information Value Date Recorded Sex Assigned at Not on file Legal Sex Female 9:43 AM EST Gender Identity Not on file Sexual Orientation Not on file documented as of this encounter Progress Notes * Joselin Kenny - 03/31/2025 9:55 AM EDT Patient was told at visit orders for labs would be put in. Please send documented in this encounter Plan of Treatment Upcoming Encounters Date Type Department Care Team (Late Contact Info) Description 08/12/2025 4:00 PM EDT Office Visit Bariatric Surgery [facility] [address] [phone] Eri Michael MD [address] [phone] documented as of this encounter Visit Diagnoses Not on filedocumented in this encounter Care Teams Dental Service Technician Relationship Specialty Start Date End Date Roberta Quinonez MD [address] [place] [address] PCP - General Conductor Symphonic Orchestra 10/13/20 documented as of this encounter
--- OUTSIDE RECORDS SUMMARY | 2025-04-07 11:47 | XMS_ITS | Encounter Summary ---
Author Organization [employer] Address 75 [facility] 7 [place] [address] Care Team Providers Care Retail Experience Specialist Name Role Phone [facility] Primary Care Provider [phone] Reason for Visit * Reason Onset Date Comments Med Refill 10/26/2024 Encounter Details Date Type Department Care Team ([facility] st Contact Info) Description 10/26/2024 Refill [facility] MED[facility]INE [address] [place], [place] [phone] [facility] 230 [place] [address] Muscle spasms of neck; Chronic bilateral low [...] documented as of this encounter Care Teams Retail Experience Specialist Relationship Specialty Start Date End Date eDbbi Staley FNP [address] [place] [address] PCP - General Family Medicine 12/27/22 documented as of this encounter
--- OUTSIDE RECORDS SUMMARY | 2025-04-07 11:47 | XMS_ITS | Encounter Summary ---
Author Organization [employer] Address 75 [facility] 7t [place] [address] Care Team Providers Care Final Inspector Truck Trailer Name Role Phone [facility] Primary Care Provider [phone] Encounter Details Date Type Department Care Team (Latest Contact Info) Description 04/07/2025 Travel Social History Tobacco Use Types Packs/Day [...] documented as of this encounter Care Teams Final Inspector Truck Trailer Relationship Specialty Start Date End Date Debbi Staley FNP [address] [place] [phone] PCP - General Family Medicine 12/27/22 documented as of this encounter
--- OUTSIDE RECORDS SUMMARY | 2025-04-07 11:47 | XMS_ITS | Encounter Summary ---
Author Organization [employer] Address 75 [facility] 7 [place] [address] Care Team Providers Care Barbering Instructor Name Role Phone [facility] Primary Care Provider [phone] Reason for Visit * Reason Onset Date Comments Chart Prep 04/06/2025 Encounter Details Date Type Department Care Team ([facility] st Contact Info) Description 04/06/2025 Telephone [facility] [address] [place], [place] [phone] [facility] 230 [place] [address] Chart Prep Social History Tobacco Use Types Packs/Day Years [...] encounter Miscellaneous Notes * Telephone Encounter - Brook Lee MA - 04/06/2025 3:40 PM EDT Chart Prep Labs: done Images: not applicable Referrals: not applicable Vaccines due: no updates Screenings: not applicable Overdue care gaps: SDOH, Oral health screening, and Disability screen documented in this encounter Plan of Treatment Not on file documented as of this encounter Visit Diagnoses Not on filedocumented in this encounter Additional Health Concerns Assessment Noted Time PHQ-9 Depression Total Score: 8 10/21/20 24 9:01 AM EST documented as of this encounter Care Teams Barbering Instructor Relationship Specialty Start Date End Date Debbi Staley FNP [address] [place] [address] PCP - General Family Medicine 12/27/22 documented as of this encounter
--- OUTSIDE RECORDS SUMMARY | 2025-04-07 11:47 | XMS_ITS | Encounter Summary ---
Author Organization [employer] Address [address] [place] [address] 7 [place] [address] Care Team Providers Care Carpentry Instructor Name Role Phone Farhana Roldan MD Primary Care Provider Priyank Caro Primary Care Provider Unavail able Debbi Staley Primary Care Provider [phone] Encounter Details Date Type Department Care Team (Latest Contact Info) Description 12/31/2019 Abstract [facility] CONVERSIONS Dental, Provider, DDS Social History [...] on filedocumented in this encounter Care Teams Carpentry Instructor Relationship Specialty Start Date End Date Farhana Roldan MD PCP - General Family Medicine 09/22/19 12/11/22 Priyank Unger AGNP PCP - General Family Medicine 12/12/22 12/26/22 Debbi Staley FNP 230 [place] [address] PCP - General Family Medicine 12/27/22 documented as of this encounter
--- OUTSIDE RECORDS SUMMARY | 2025-04-07 11:47 | XMS_ITS | Encounter Summary ---
Author Organization [employer] Address 75 [facility] 7t [place] [address] Care Team Providers Care Clinical Tech Name Role Phone [facility] Primary Care Provider [phone] Reason for Visit * Reason Onset Date Comments Question 01/16/2023 Encounter Details Date Type Department Care Team ([facility] st Contact Info) Description 01/16/2023 Telephone [facility] MEDICINE 230 [place], [place] [phone] [facility] 230 [place], [place] [phone] Question Social History Tobacco Use Types Packs/Day [...] AM EST TC placed to pt, utilizing [employer] Client Technical Support Associate ID:[id number], regarding message below. Pt reports ongoing pain [...] to help more. Please contact pt at [phone] * Telephone Encounter - Neela Snell - 01/16/2023 11:51 AM EST Tc from pt stating that she has started physical therapy and has been going for 3 days but feels that the therapies are not working , and asking if there is another solution that would be able to help more. Please contact pt at [phone] documented in this encounter Plan of Treatment Not on file documented as of this encounter Visit Diagnoses Not on filedocumented in this encounter Care Teams Clinical Tech Relationship Specialty Start Date End Date RebekaDebbi chandler FNP [address] [place] [address] PCP - General Family Medicine 12/27/22 documented as of this encounter
--- OUTSIDE RECORDS SUMMARY | 2025-04-07 11:47 | XMS_ITS | Encounter Summary ---
Author Organization [employer] Address 75 [facility] 7 [place] [address] Care Team Providers Care Melter Supervisor Electric Arc Furnace Name Role Phone [facility] Primary Care Provider [phone] Reason for Visit * Reason Onset Date Comments Lab Orders 04/06/2025 Encounter Details Date Type Department Care Team ([facility] st Contact Info) Description 04/06/2025 Telephone [facility] MEDICINE 230 [place], [place] [phone] [facility] 230 [place] [address] Lab Orders Social History Tobacco Use Types Packs/Day Years [...] encounter Miscellaneous Notes * Telephone Encounter - Fiorella Love RN - 04/06/2025 4:37 PM EDT TC returned to pt., pt. Reports requiring tb and hepatitis titer testing for work. Pt. Reports previous tb testing with negative results. Pt. Aware hepatitis IZ series was completed x 3 in [id number] but believes job is requiring testing regardless. Orders placed. Pt. Has physical tomorrow and will wait until after appt to go to lab in case any other labs will be requested. * Telephone Encounter - Theresa Olmos - 04/06/2025 2:55 PM EDT Tc from pt requesting Tb test for work and Hepatitis lab order to be sent to lab. Please contact pt [phone] documented in this encounter Plan of Treatment Scheduled Orders Name Type Priority Associated Diagnoses Orde r Schedule T-SPOT??.TB Lab Routine Screening examination for pulmonary tuberculosis Expected: 04/06/2025 (Approximate), Expires: 04/06/2026 Hepatitis B Surface Antibody, Qualitative Lab Routine Pre-employment examination Expected: 04/06/2025 (Approximate), Expires: 04/06/2026 documented as of this encounter Visit Diagnoses Diagnosis Screening examination for pulmonary tuberculosis Pre-employment examination documented in this encounter Additional Health Concerns Assessment Noted Time PHQ-9 Depression Total Score: 8 10/21/20 24 9:01 AM EST documented as of this encounter Care Teams Melter Supervisor Electric Arc Furnace Relationship Specialty Start Date End Date Debbi Staley FNP [address] [place] [address] PCP - General Family Medicine 12/27/22 documented as of this encounter
--- OUTSIDE RECORDS SUMMARY | 2025-04-07 11:47 | XMS_ITS | Encounter Summary ---
Author Organization [employer] Address 75 [facility] 7t [place] [address] Care Team Providers Care Lapel Stitcher Name Role Phone [facility] Primary Care Provider Reason for Visit * Reason Onset Date Comments Med Refill 02/21/2025 Encounter Details Date Type Department Care Team (Late st Contact Info) Description 02/21/[address] [facility] MEDICINE 230 [place], [place] [phone] [facility] 230 [place] [address] Chronic bilateral low back pain with bilateral [...] as of this encounter Visit Diagnoses Diagnosis Chronic bilateral low back pain with bilateral sciatica documented in this encounter Additional Health Concerns Assessment Noted Time PHQ-9 Depression Total Score: 8 10/21/20 24 9:01 AM EST documented as of this encounter Care Teams Lapel Stitcher Relationship Specialty Start Date End Date Debbi Staley FNP [address] [place] [address] PCP - General Family Medicine 12/27/22 documented as of this encounter
--- OUTSIDE RECORDS SUMMARY | 2025-04-07 11:47 | XMS_ITS | Encounter Summary ---
Author Organization [employer] Address [address] [place] [address] 7t [place] [address] Care Team Providers Care Marker Shipments Name Role Phone [facility] Primary Care Provider Encounter Details Date Type Department Care Team ([facility] st Contact Info) Description 08/27/2023 Orders Only [facility] MEDICINE 230 [place] [address] Provider, Historical, Social History Tobacco Use Types Packs/Day Years [...] on file documented as of this encounter Procedures Procedure Name Priority Date/Time Associated Diagnosis Comments HM PAP/HPV Routine 02/14/2022 documented in this encounter Results * Hm Pap Smear (02/14/2022) us Historical Provider HEALTH MAINTENANCE Final Result documented in this encounter Visit Diagnoses Not on filedocumented in this encounter Additional Health Concerns Assessment Noted Time PHQ-9 Depression Total Score: 19 08/2 023 9:06 AM EDT documented as of this encounter Care Teams Marker Shipments Relationship Specialty Start Date End Date Stanford BILL Werner 230 [place] [address] PCP - General Family Medicine 12/27/22 documented as of this encounter
--- OUTSIDE RECORDS SUMMARY | 2025-04-07 11:47 | XMS_ITS | Encounter Summary ---
Author Organization [employer] Address 75 [facility] 7t [place] [address] Care Team Providers Care Band Aid Machine Operator Name Role Phone [facility] [facility] Primary Care Provider [phone] Reason for Visit * Reason Onset Date Comments Med Refill 09/18/2023 Encounter Details Date Type Department Care Team (Late st Contact Info) Description 09/18/2023 Refill [facility] 230 [place] [address] Christine Muhammad FNP Social History Tobacco Use [...] documented as of this encounter Care Teams Band Aid Machine Operator Relationship Specialty Start Date End Date Debbi Staley FNP [address] [place] [address] PCP - General Family Medicine 12/27/22 documented as of this encounter
--- OUTSIDE RECORDS SUMMARY | 2025-04-07 11:47 | XMS_ITS | Encounter Summary ---
Author Organization [employer] Address 75 [facility] 7 [place] [address] Care Team Providers Care Tape Duplicator Name Role Phone [facility] Primary Care Provider [phone] Reason for Visit * Reason Onset Date Comments Med Refill 09/18/2023 Encounter Details Date Type Department Care Team ([facility] st Contact Info) Description 09/18/2023 Refill [facility] MEDICINE 230 [place], [place] [phone] [facility] 230 [place] [address] Muscle spasms of neck; YONATHAN (generalized anxiety [...] documented as of this encounter Care Teams Tape Duplicator Relationship Specialty Start Date End Date Debbi Staley FNP [address] [place] [address] PCP - General Family Medicine 12/27/22 documented as of this encounter
--- OUTSIDE RECORDS SUMMARY | 2025-04-07 11:47 | XMS_ITS | Clinical Summary ---
Author Organization [address] [place] [address] [place] [phone] Phone Care Team Providers Care Medical Technologist Chief Name Role Phone Roberta Quinonez MD Primary Care Provider [phone] Allergies Active Allergy Reactions Criticality Noted Date Comments Other 04/04/2021 Seafood Medications aspirin/acetami nophen/caffeine (EXCEDRIN MIGRAINE ORAL) Take by mouth. Active famotidine (PEPCID ORAL) Take by mouth. Active zinc glycinate 30 mg capsule Take 1 Capsule by mouth daily. Active cholecalciferol (VITAMIN D-3) 1,250 mcg (50,000 unit) capsule Take 1 Capsule by mouth once a week. Active hydrOXYzine HCL (ATARAX) 25 mg tablet Take 1 tablet (25 mg total) by mouth every 6 (six) hours if needed. 02/22/2025 Active phentermine 15 mg capsuleIndicati ons:Over weight Take 1 capsule (15 mg total) by mouth 1 (one) time each day before breakfast. Max Daily Amount: 15 mg 30 each 03/30/2025 5 Active topiramate (Topamax) 50 mg tabletIndicatio ns:Over weight Take 1 tablet (50 mg total) by mouth at bedtime. 30 each 2 03/30/2025 5 Active Active Problems Problem Noted Date Diagnosed Date Sciatica 12/17/2024 Allergic arthritis of left knee 12/17/2024 Anxiety 04/28/2021 Eating disorder 04/28/2021 Encounters Date Type Department Care Team Description 03/31/2025 Telephone Bariatric Surgery - [place] 175 [facility] [address] [place] [address] Eri Michael MD Labs Only (Lab orders) 03/30/2025 4:30 PM EDT Office Visit Bariatric Surgery - [address] [place] [address] Eri Michael MD Over weight (Primary Dx) from Last 3 Months Surgical History Surgery Date Site/Laterality Comments OTHER SURGICAL HISTORY Right PROCEDURE: [place] EXC BREAST LES PREOP PLMT RAD MARKER [...] Sign Reading Time Taken Comments Blood Pressure 109/73 03/30/2025 4:20 PM EDT Pulse 85 03/30/2025 4:20 PM EDT Temperature 36.6 ??C (97.8 ??F) 03/30/2025 4:20 PM ED T Respiratory Rate - - Oxygen Saturation - - Inhaled Oxygen Concentration - - Weight 65.3 kg (144 lb) 03/30/2025 4:20 PM EDT Height 149.9 cm (4' 11 ) 03/30/2025 4:20 PM EDT Body Mass Index 29.08 03/30/2025 4:20 PM EDT Plan of Treatment Upcoming Encounters Date Type Department Care Team (Late st Contact Info) Description 08/12/2025 4:00 PM EDT Office Visit Bariatric Surgery - [place] [address] [place] [address] Eri Michael MD 175 [facility] [address] [place] [address] Health Maintenance Due Date Last Done Comments Pneumococcal Vaccine: Pediatrics (0 to 5 Years) and At-Risk Patients (6 to 64 Years) (1 of 2 - PCV) 2007 Cervical Cancer Screening: Pap Smear 2009 Social Influencers of Health Screening 10/30/2022 COVID-19 Vaccine (6 - Pfizer risk season) 2025 09/30/2024, 12/17/2022, 11/29/2021, Additional history exists Depression Screening 10/21/2025 10/21/2024 Cholesterol Screening (Lipid Panel) 01/09/2026 01/09/2021 DTaP,Tdap,and Td Vaccines (2 - Td or Tdap) 08/09/2031 08/09/2021 Hepatitis B Vaccines Completed 06/12/2018, 10/16/2017, 09/12/2017 HIV Screening Completed 02/14/2023 Hepatitis C Screening Completed 02/14/2023 MMR Vaccines Aged Out 05/09/2023 No longer eligi ble based on patient's age to complete this topic Influenza Vaccine Completed 09/30/2024, , 09/19/2022, Additional [...] age to complete this topic Meningococcal B Vaccine Aged Out No l onger eligible based on patient's age to complete this topic RSV Immunization Patients Under 20 months Aged Out No longer eligible based on [...] mg/dL Blood Venous blood specimen / Unknown Historical Provider LAB BLOOD ORDERABLES Catarina l Result from Last 3 Months or Most Recently Relevant to Health Maintenance Insurance [employer] [facility] Care Teams Medical Technologist Chief Relationship Specialty Start Date End Date Roberta Quinonez MD [address] [place] [address] PCP - General Filter Tip Catcher 10/13/20
--- OUTSIDE RECORDS SUMMARY | 2025-04-07 11:47 | XMS_ITS | Encounter Summary ---
Author Organization [employer] Address [address] [place] [address] 7 [place] [address] Care Team Providers Care Abalone Diver Name Role Phone Farhana Roldan MD Primary Care Provider Priyank Caro Primary Care Provider Unavail able Debbi Staley Primary Care Provider [phone] Encounter Details Date Type Department Care Team (Latest Contact Info) Description 12/29/2018 Abstract [facility] CONVERSIONS Dental, Provider, DDS Social History Tobacco [...] on filedocumented in this encounter Care Teams Abalone Diver Relationship Specialty Start Date End Date Farhana Roldan MD PCP - General Family Medicine 09/22/19 12/11/22 Priyank Unger AGNP PCP - General Family Medicine 12/12/22 12/26/22 Debbi Staley FNP 230 [place] [address] PCP - General Family Medicine 12/27/22 documented as of this encounter
--- OUTSIDE RECORDS SUMMARY | 2025-04-07 11:47 | XMS_ITS | Encounter Summary ---
Author Organization [employer] Address 75 [facility] 7t [place] [address] Care Team Providers Care Sales Manager Prearranged Funerals Name Role Phone [facility] Primary Care Provider [phone] Reason for Visit * Reason Comments Med Refill Encounter Details Date Type Department Care Team (Late st Contact Info) Description 09/18/[address] [facility] 230 [place] [address] Christine Muhammad FNP Social History Tobacco Use [...] documented as of this encounter Care Teams Sales Manager Prearranged Funerals Relationship Specialty Start Date End Date Debbi Staley FNP [address] [place] [address] PCP - General Family Medicine 12/27/22 documented as of this encounter
--- OUTSIDE RECORDS SUMMARY | 2025-04-07 11:47 | XMS_ITS | Encounter Summary ---
Author Organization [employer] Address [address] 7 [place] [address] Care Team Providers Care Telephone Sales Representative Name Role Phone [facility] Primary Care Provider [phone] Reason for Visit * Reason Onset Date Comments Med Refill 02/21/2025 Encounter Details Date Type Department Care Team ([facility] st Contact Info) Description 02/21/2025 [facility]ill [facility] [address], [place] [phone] [facility] [address] [place] [address] YONATHAN (generalized anxiety disorder) Social History Tobacco [...] as of this encounter Visit Diagnoses Diagnosis YONATHAN (generalized anxiety disorder) Generalized anxiety disorder documented in this encounter Additional Health Concerns Assessment Noted Time PHQ-9 Depression Total Score: 8 10/21/20 24 9:01 AM EST documented as of this encounter Care Teams Telephone Sales Representative Relationship Specialty Start Date End Date Debbi Staley FNP [address] [place] [id number] PCP - General Family Medicine 12/27/22 documented as of this encounter
[2025-04-07 12:18] LABS: HBS Num1 134.49 mIU/mL (0-7.99); ~Hepatitis B Surface Antibody REACTIVE (Nonreactive)
[2025-04-10 09:54] LABS: TS Negative Control Passed; TS Panel A 0; TS Panel B 0; TS Positive Control Passed; TSpotTB Negative (Negative)
== END 2025-04-07 10:25 | disposition home or self-care (01) ==
LOC: HO.HHCL 10:24
PROVIDERS: Visit Provider Registered Nurse
DX: Z02.1 Encounter for pre-employment examination (principal); Z11.1 Encounter for screening for respiratory tuberculosis
CPT/HCPCS: 36415; 86481; 86706

== ENCOUNTER 2025-05-12 08:26 | Outpatient (AMB) | payer OTHER, SELFPAY ==
--- NOTE | 2025-05-12 08:29 | A.OFFVIS_ITS ---
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 The patient is doing well. She is having only pelvic cramping around the time of her menstrual cycles although she has amenorrhea on Mirena IUD The following workup was done so far: GC/CT negative. Last visit urine test was negative. Pelvic ultrasound showed the following: Uterus: The uterus is anteverted, anteflexed, and measures 8.3 x 3.3 x 4.3 cm. Cervix is normal in imaging appearance. The double wall endometrial thickness is [address] appears well positioned. The uterus is smooth in contour and has normal myometrial echogenicity. No visible fibroid. Adnexa: Both ovaries are visualized. There is normal color flow to the adnexa. There is no ovarian torsion. There is no pelvic ascites or fluid collection. There are no adnexal masses. Right ovary measures 2.1 x 1.5 x 2.3 cm. Volume = 3.8 mL. Normal sonographic appearance. Left ovary measures 2.0 x 1.8 x 2.0 cm. Volume = 3.7 mL. Normal sonographic appearance. [facility] Medical History Arthritis Chronic neck pain Obesity Dysplasia of cervix, low grade (BOBBY 1) Sciatica Abnormal uterine bleeding Fibroadenoma Migraine Anemia Surgical History History of wisdom tooth extraction History of lumpectomy of right breast (01/28/20) Hx of gastric bypass H/O tubal ligation Family History Father Asthma Social History Household Members: Children Housing: House Are you a primary care transition manager to a significant other at home: Yes (children) Do you presently have visiting nurse or other home services: No Alcohol intake: never Patient Tobacco Use Status: Never used Tobacco service: No Current occupational status: employed Current occupation: [employer] /rt handed Female Reproductive History Menstrual Age of Menarche: 8 Review of Systems Const All systems reviewed & are unremarkable except as noted in HPI and below Reports as per HPI and Reports no additional complaints GI Reports no additional complaints Reports no additional complaints Assessment & Plan Assessment & Plan (1) Pelvic cramping: Code(s): R10.2 - Pelvic and perineal pain Category: Medical Plan: Urine dip and UPT done in the office was negative. Discussed with the patient the results of the workup done including negative GC/chlamydia, urine dip, urine test and pelvic ultrasound. Differential diagnosis of automatic mounter causes that have not be ruled out yet include but not limited to endometriosis, pelvic adhesions , or others. Recommended for the patient to see her PCP for further workup for non automatic mounter causes; if the all the results are negative and the patient's pelvic pain is persistent, instructions given to patient to call back for further testing. Meanwhile, instructions were given the patient to go to emergency room or call in case of fever above 100.4, heavy vaginal bleeding, persistence or worsening of her pelvic pain. All questions answered, the patient verbalized understanding. Coding Level of Care Code Est Pt Level 3 (41410) Diagnoses Pelvic cramping R10.2
--- OUTSIDE RECORDS SUMMARY | 2025-05-12 08:36 | XMS_ITS | Clinical Summary ---
Author Organization [employer] Address [address] [facility] [address] [place] [address] Care Team Providers Care Archeologist Name Role Phone Rebeka [facility] Primary Care Provider [phone] Allergies Active Allergy Reactions Criticality Noted Date [...] 12 hours 30 patch 3 12/14/2022 Active cyclobenzaprine (Flexeril) 10 MG tabletIndicatio ns:Muscle spasms of neck TAKE 1 TABLET BY MOUTH EVERY 8 HOURS NEEDED FOR MUSCLE SPASMS 30 tablet 3 02/22/2025 Active hydrOXYzine HCl (Atarax) 25 MG tabletIndicatio ns:YONATHAN (generalized anxiety disorder) TAKE 1 TABLET BY MOUTH EVERY 6 HOURS NEEDED FOR ANXIETY 90 tablet 1 02/22/2025 Active topiramate (Topamax) 25 MG tabletIndicatio ns:Overeating disorder Take 1 tablet (25 mg) by mouth before evening meal. 30 tablet 11 02/22/2025 02/23/20 26 Active Active Problems Problem Noted Date Diagnosed Date Reduced vision 04/07/2025 Encounter for preventive care 04/07/2025 Assessment & Plan (04/07/2025 2:07 PM EDT): See HPI Joint pain 05/10/2024 Overview (05/10/2024): Joint pain-negative CCP, RF, CRP, ESR, 03/2024. Pain mngmt Other chest pain 09/20/2023 Overview (09/20/2023): ? ? 07/23/23-seen in [facility] with CP and SOB. EKG, CXR [...] q. 3 years Hx of BOBBY 2 [id number] s/p LEEP cone Followed by Dr. Saad [...] 02/16/2019 Overview (06/29/2023): ?? Saw neurology in [place] ?? Reports normal MRI in [place] Chronic low back pain 11/18/2018 Overview (05/10/2024): [...] negative in 02/20 Hx of BOBBY 2 [id number] s/p LEEP cone Low grade squamous intraepit [...] uterine bleeding 11/18/2018 Obesity (BMI 30.0-34.9) 11/18/2018 10/0 12/2022 Encounters Date Type Department Care Team Description 04/07/2025 10:45 AM EDT Office Visit [facility] [address] [place] [phone] Megan Lai MD Encounter for preventive care (Primary Dx); Reduced vision 04/07/2025 Travel 04/06/2025 Telephone [facility] [address] [place] [phone] Debbi StaleyBILL Chart Prep 04/06/2025 Travel 04/06/2025 Telephone [facility] [address] [place] [address] Debbi StaleyBILL Lab Orders 02/26/2025 Refill [facility] [address] [place] [address] Fiorella Love RN Iron deficiency anemia, unspecified iron deficiency anemia type; Constipation, unspecified constipation type 02/22/2025 2:30 PM EDT Office Visit [facility] [address] [facility] [place] [address] Rebeka BILL Werner Overeating disorder (Primary Dx); Weight gain; Other fatigue; Overweight (BMI 25.0-29.9); Dietary counseling; Exercise counseling 02/22/2025 Travel 02/21/2025 Refill [facility] [address] [facility] [address] [facility] [place] [address] Debbi Staley FNP Chronic bilateral low back pain with bilateral sciatica 02/21/2025 Refill [facility] [address] [facility] [place] [address] Rebeka Debbi [employer] Muscle spasms of neck; YONATHAN (generalized anxiety disorder) 02/21/2025 Refill [facility] [address] [facility] [place] [address] Debbi Staley [employer] OYNATHAN (generalized anxiety disorder) 02/15/2025 Travel from Last 3 Months Immunizations Immunization Administration Dates Next Due Hep B, adult [...] 04/07/2025 11:12 AM EDT Plan of Treatment Upcoming Encounters Date Type Department Care Team (Late st Contact Info) Description 08/18/2025 10:00 AM EDT Office Visit [facility] [address] [place] [address] Ludin, Beatriz, OD [address] [place] [address] Health Maintenance Due Date Last Done Comments Family Planning (PISQ) 2003 Alcohol/Substance Use Screening 10/21/2025 10/21/2024 Depression Screening 10/21/2025 10/21/2024, 10/21/20 24 Disability Screening 04/07/2026 04/07/2025 SDOH Screening 04/07/2026 04/07/2025 Tobacco Screening 04/07/2026 04/07/2025 Cervical Cancer Screening 02/14/2027 HPV/Cotest 02/14/2027 02/14/2022, 01/30, 01/15/2019, Additional history exists Pap Smear 02/14/2027 02/14/2022 DTaP/Tdap/Td Vaccines (2 - Td or Tdap) [...] Name Priority Date/Time Associated Diagnosis Comments HEPATITIS B SURFACE ANTIBODY, QUALITATIVE Routine 04/07/2025 10:34 AM EDT Pre-employment examination T-SPOT(R).TB Routine 04/07/2025 10:34 AM EDT Screening examination for pulmonary tuberculosis AMB REFERRAL TO WEIGHT MANAGEMENT Routine 03/30/2025 [...] Recently Relevant to Health Maintenance Results * T-SPOT??.TB (04/07/2025 10:34 AM EDT) [facility] T Spot TB Negative Negative [facility] Comment:A negative test resu lt does not exclude the possibilityof exposure to or infection with Mycobacteriumtuberculosis (M. tuberculosis). Patients with recentexposure to TB infected individuals exhibiting anegative T-SPOT.TB result should be considered forretesting within 6 weeks or if other relevant clinicalsymptoms indicate. Results from T-SPOT.TB testing mustbe used in conjunction with each individual'sepidemiological history, current medical status,and results of other diagnostic evaluations.The T-SPOT.TB test is qualitative and results arereported as positive, borderline, or negative, giventhat the test controls perform as expected. In linewith the Centers for Disease Control and Prevention's2010 recommendation to report quantitative measurementsalongside the qualitative result, the laboratoryprovides spot counts for informational purposes only.The T-SPOT.TB test should not be interpreted as aquantitative test. TS PANEL A 0 [facility] TS PANEL B 0 [facility] Negative Control Passed [facility] Positive Control Passed [facility] Comment:For additional infor mation, please refer tohttp://education.[employer]/faq/RGO130(This link is being provided for informational/educational purposes only.)REPORT COMMENT:REC'D AT [facility] TEST WAS PERFORMED AT:[employer] [id number] [place] [address]QNAGUMCKERRI JUNIOR MD,PHD 04/07/2025 10:3 4 AM EDT 04/07/2025 11:07 AM EDT [facility] LAB BLOOD ORDERABLES Final Re sult [facility] [address] [place] [phone] * Hepatitis B Surface Antibody, Qualitative (04/07/2025 10:34 AM EDT) ~Hepatitis B Surface Antibody REACTIVE Nonreactive [facility] Comment:REACTIVE: > 11.99 mI U/mL Blood Venous blood specimen / Unknown 04/07/2025 10:34 AM EDT 04/07/2025 11:07 AM EDT [facility] LAB BLOOD ORDERABLES Final Re sult [facility] [address] [place] [address] [phone] * Referral to Weight Management (03/30/2025) [facility] OUTPATIENT REFERRAL ORDERABLE S Final Result * (ABNORMAL) CBC auto differential (02/22/2025 3:05 PM EDT) Pathologist [facility] White Blood Count 6.5 4.8 - 10.8 X10*3/uL [facility] Red Blood Count 3.70(L) 4.20 - 5.50 X10*6/uL [facility] Hemoglobin 10.8(L) 12.0 - 16.0 g/dl [facility] Hematocrit 32.5(L) 37.0 - 47.0 % [facility] Mean Corpuscular Volume 87.8 80.0 - 98.0 fL [facility] Mean Corpuscular Hemoglobin 29.2 27.0 - 33.0 pg [facility] Mean Corpuscular HGB Conc 33.2 31.0 - 35.0 g/dl [facility] Red Cell Distribution Width 12.4 11.0 - 16.0 % [facility] Platelet Count 326 160 - 400 X10*3/uL [facility] Mean Platelet Volume 9.0(L) 9.4 - 12.3 fL [facility] Neutrophils Percent Auto 57.3 45 - 73 % [facility] Imm Gran Pct Auto 0.3 0.0 - 0.4 % [facility] Lymphocytes Percent Auto 30.9 20 - 40 % [facility] Monocytes Percent Auto 10.2 2 - 11 % [facility] Eosinophils Percent Auto 0.8 0 - 4 % [facility] Basophils Percent Auto 0.5 0 - 2 % [facility] NRBC Pct Auto 0.0 0.0 - 0.2 /100WBC [facility] Neutrophils Absolute Auto 3.7 2.0 - 8.3 x10*3/uL [facility] Imm Gran Abs Auto 0.02 0.00 - 0.03 X10*3/uL [facility] Lymphocytes Absolute Auto 2.0 1.2 - 4.9 X10*3/uL [facility] Monocytes Absolute Auto 0.7 0.1 - 1.2 X10*3/uL [facility] Eosinophils Absolute Auto 0.1 0.0 - 0.4 X10*3/uL [facility] Basophils Absolute Auto 0.0 0.0 - 0.2 X10*3/uL [facility] NRBC Abs Auto 0.000 0.0 - 0.012 X10*3/uL [facility] Blood Venous blood specimen / Unknown 02/22/2025 3:05 PM EDT 02/22/2025 4:02 PM EDT [facility] LAB BLOOD ORDERABLES Final Re sult [facility] [address] [place] [address] [phone] * Hepatitis C Antibody with Reflex to HCV, RNA, Quantitative, Real-Time PCR (02/14/2023 3:22 PM EDT) Hepatitis C Antibody NON-REACT AUDELIA NON-REACT AUDELIA [facility] Index 0.02 <1.00 [facility] Comment: HCV antibody was non-reactive. There is no laboratory evidence of HCV infection. In most cases, no further action is required. However, if recent HCV exposure is suspected, a test for HCV RNA (test code 14735) is suggested. For additional information please refer to http://education.[employer]/faq/QFN82l3 (This link is being provided for informational/ educational purposes only.) Blood Venous blood specimen / Unknown 02/14/2023 3:22 PM EDT 02/14/2023 3:23 PM EDT Narrative [facility] - 02/15/2023 1:02 PM EDT FASTING:NO FASTING: NO [facility] [employer] LAB BLOOD ORDERABLES Final Re sult [facility] [address] [place] [address] [facility] [address] [place] [address] * HIV-1/2 Antigen and Antibodies, Fourth Generation, with Reflexes (02/14/2023 3:22 PM EDT) HIV Antigen/Antibody, 4th Generation NON-REAC TIVE NON-REAC TIVE [facility] Comment: HIV-1 antigen and HIV-1/HIV-2 antibodies [...] ?? For additional information please refer to http://[employer]/faq/OAQ934 (This link is being provided for informational/ educational purposes only.) The performance of this assay has not been clinically validated in patients less than 2 years old. Blood Venous blood specimen / Unknown 02/14/2023 3:22 PM EDT 02/14/2023 3:23 PM EDT Narrative [facility] - 02/15/2023 1:02 PM EDT FASTING:NO FASTING: NO [facility] [employer] LAB BLOOD ORDERABLES Final Re sult Performing Organization Address City/[facility]/ZIP Co de Phone Number [facility] [address], [place] [address] [facility] [address] [place] [address] * HPV E6/E7 RFLX NANCY 16 18/45 (02/14/2022 11:38 AM EDT) HPV mRNA E6/E7 rflx Not Detected Not Detected [facility] Comment: Methodology: Bridge Engineer-Mediated Amplification This assay detects E6/E7 viral messenger RNA (mRNA) from 14 high-risk HPV types (16,18,31,33,35,39,45,51,52,56,58,59,66,68). The analytical performance characteristics of this assay have been determined by [facility]. The modifications have not been cleared or approved by the FDA. This assay has been validated pursuant to the CLIA regulations and is used for clinical purposes. For additional information, please refer to http://education.[employer]/faq/SIS763e7 (This link if provided for information/ educational purposes only.) THIS TEST WAS PERFORMED AT: [facility] [address] [place], [place] ??[phone] STACEY VARGAS MD 02/14/2022 11:3 8 AM EDT Geronimo Nash MD HISTORICAL/NON ORDERABLE LABS Fi nal Result Performing Organization Address [facility]/ZIP Co de Phone Number [facility] [address] * Hm Pap Smear (02/14/2022) Historical Provider HEALTH MAINTENANCE Final Result from Last 3 Months or Most Recently Relevant to Health Maintenance Insurance [facility] Care Teams Archeologist Relationship Specialty Start Date End Date Debbi Staley FNP [address] [place] [phone] PCP - General Family Medicine 12/27/22
== END 2025-05-12 09:20 | disposition home or self-care (01) ==
LOC: HO.HWS 08:26
PROVIDERS: PCP Registered Nurse; Visit Provider Obstetrics & Gynecology
DX: R10.2 Pelvic and perineal pain (principal)
CPT/HCPCS: 99213

== ENCOUNTER → 2025-05-12 08:26 | Outpatient (BNVA) | payer OTHER, SELFPAY | PROVIDERS: PCP Registered Nurse; Visit Provider Obstetrics & Gynecology ==

== ENCOUNTER 2025-05-25 06:22 | Outpatient (REF) | payer OTHER, SELFPAY ==
--- NOTE | ~2025-05-25 | FL_ITS ---
EXAMINATION: FL GUIDANCE ONLY HISTORY: M53.3 - Sacrococcygeal disorders, not elsewhere classified COMPARISON: Comparison is made with the prior examination dated 02/16/2025. TECHNIQUE: Fluoroscopy time: 0.1 minutes. Cumulative Dose: 1.15 mGy. DAP: 0.0137 mGym2 Images: 1. FINDINGS: A single fluoroscopic spot film of the right hemipelvis demonstrate a needle and contrast material in the region of the sacroiliac joint. FL/FL guidance in treatment room IMPRESSION: Fluoroscopy during procedure. Please see procedure report for additional information. Electronically signed by: aMnoj Mora MD 05/25/2025 12:06 PM EDT
--- OUTSIDE RECORDS SUMMARY | 2025-05-25 06:25 | XMS_ITS | Clinical Summary ---
Author Organization [email or web address] Address [address] [facility] [address] [place] [address] Care Team Providers Care Hydrogenation Operator Name Role Phone Rebeka [facility] Primary Care Provider [phone] Allergies Active Allergy Reactions Criticality Noted Date [...] mngmt Other chest pain 09/20/2023 Overview (09/20/2023): 07/23/23-seen in [facility] ED with CP and SOB. EKG, CXR [...] of SI or self harm. Pt has [facility] crisis contact information Assessment & Plan (10/08/2023 2:30 PM EST): INCREASE remeron to 15mg at bedtime Continue lexapro 10mg Continue to work with therapist Encouraged acupuncture Contact HC if sx worsen or experiencing thoughts of SI or self harm. Pt has [facility] crisis contact information Assessment & Plan (09/01/2023 6:15 PM EDT): Continue lexapro 10mg START nightly mirtazipine 15mg. Reviewed administration, risks, [...] simultaneously. Chronic neck pain 06/29/2023 Overview (06/29/2023): Neg xray 2017 No improvement with PT Hx of bariatric surgery 06/29/2023 Healthcare maintenance 06/29/2023 Overview (02/12/2024): Mammo: q 2 years due to hx multiple breast nodules (benign fibroadenoma) 02/07/2022 Bi-rads 2 Pap: Pap/HPV was negative in 02/20 --> q. 3 years Hx of BOBBY 2 [id number] s/p LEEP cone Followed by Dr. Nash Tachycardia 06/29/2023 Overview (06/29/2023): Followed by cardiology; not a good candidate for beta jose carlos therapy due to low BP Thirty day cardiac event monitor started on 11/07/2022 showed sinus rhythm to sinus tach heart palpitation events correlated with sinus rhythm and sinus tach, pulse rate greater than 100 b/ min 32% of the time, rare PACs and PVCs. Echocardiogram done 11/07/2022 showed normal EF, normal valves. Lab work done 12/12/2022 shows mild anemia with hematocrit 34.6. Last TSH 02/21/2022 0.96. Assessment & Plan (09/01/2023 6:12 PM EDT): Suspect sx r/t anxiety Patient to focus on medication/mindfulness and continue to monitor sx Follow up as scheduled with cardiology Fibroadenoma of breast 02/16/2019 Iron deficiency anemia 02/16/2019 Overview (02/12/2024): Unable to tolerate oral iron Mirena IUD Followed by heme--> stable post IUD. No longer requires heme follow up Migraine without aura and wi thout status migrainosus, not intractable 02/16/2019 Overview (06/29/2023): Saw [place]y in [place] Reports normal [place] in [place] Chronic low back pain 11/18/2018 Overview (05/10/2024): [...] negative in 02/20 Hx of BOBBY 2 [id number] s/p LEEP cone Low grade squamous intraepit [...] uterine bleeding 11/18/2018 Obesity (BMI 30.0-34.9) 11/18/2018 1012/2022 Encounters Date Type Department Care Team Description 04/07/2025 10:45 AM EDT Office Visit [facility] [address] [place] [address] Megan Lai MD Encounter for preventive care (Primary Dx); Reduced vision 04/07/2025 Travel 04/06/2025 Telephone [facility] [address] [place] [address] Debbi Staley FNP Chart Prep 04/06/2025 Travel 04/06/2025 Telephone [facility] [address] [place] [address] GlentanaDebbi FNP Lab Orders 02/26/2025 Refill [facility] [address] [place] [address] Fiorella Love RN Iron deficiency anemia, unspecified iron deficiency anemia type; Constipation, unspecified constipation type 02/22/2025 2:30 PM EDT Office Visit [facility] [address] [place] [address] GlentanaDebbi FNP Overeating disorder (Primary Dx); Weight gain; Other fatigue; Overweight (BMI 25.0-29.9); Dietary counseling; Exercise counseling 02/22/2025 Travel from Last 3 Months Immunizations Immunization [...] 72 04/07/2025 11:12 AM EDT Temperature 36.4 C (97.6 F) 04/07/2025 11:12 AM EDT Respiratory Rate 20 04/07/2025 11:12 AM EDT [...] Description 08/18/2025 10:00 AM EDT Office Visit [facility] [address] [place], [place] [id number] Beatriz Noland, OD [address] [place], [place] [phone] Health Maintenance Due Date Last Done Comments [...] Years) and At-Risk Patients (6 to 49) Years Aged Out No longer eligible based on [...] Results * T-SPOT??.TB (04/07/2025 10:34 AM EDT) [facility] T Spot TB Negative Negative [facility] Comment:A negative test resu lt does [...] as aquantitative test. TS PANEL A 0 [facility] TS PANEL B 0 [facility] Negative Control Passed [facility] Positive Control Passed [facility] Comment:For additional infor bhumika, please refer tohttp://education.Pocket Change/faq/IPY381(This link is being provided for informational/educational purposes only.)REPORT COMMENT:REC'D AT [facility] TEST WAS PERFORMED AT:[id number] [place] [address]FZUSUYCKERRI JUNIOR MD,PHD 04/07/2025 10:3 4 AM EDT 04/07/2025 11:07 AM EDT [facility] LAB BLOOD ORDERABLES Final Re sult Performing Organization Address [facility] Co de Phone Number [facility] [address] [place] [phone] * Hepatitis B Surface Antibody, Qualitative (04/07/2025 10:34 AM EDT) ~Hepatitis B Surface Antibody REACTIVE Nonreactive [facility] Comment:REACTIVE: > 11.99 mI U/mL Blood Venous blood specimen / Unknown 04/07/2025 10:34 AM EDT 04/07/2025 11:07 AM EDT [facility] LAB BLOOD ORDERABLES Final Re sult Performing Organization Address [facility]/ZIP Co de Phone Number [facility] [address] [place] [address] [phone] * Referral to Weight Management (03/30/2025) [facility] OUTPATIENT REFERRAL ORDERABLE S Final Result * (ABNORMAL) CBC auto differential (02/22/2025 3:05 PM EDT) White Blood Count 6.5 4.8 - 10.8 X10*3/uL [facility] Red Blood Count 3.70(L) 4.20 - 5.50 X10*6/uL [facility] Hemoglobin 10.8(L) 12.0 - 16.0 g/dl [facility] Hematocrit 32.5(L) 37.0 - 47.0 % [facility] Mean Corpuscular Volume 87.8 80.0 - 98.0 fL [facility] Mean Corpuscular Hemoglobin 29.2 27.0 - 33.0 pg [facility] Mean Corpuscular HGB Conc 33.2 31.0 - 35.0 g/dl [facility] Red Cell Distribution Width 12.4 11.0 - 16.0 % [facility] Platelet Count 326 160 - 400 X10*3/uL [facility] Mean Platelet Volume 9.0(L) 9.4 - 12.3 fL [facility] Neutrophils Percent Auto 57.3 45 - 73 % [facility] Imm Gran Pct Auto 0.3 0.0 - 0.4 % [facility] Lymphocytes Percent Auto 30.9 20 - 40 % [facility] Monocytes Percent Auto 10.2 2 - 11 % [facility] Eosinophils Percent Auto 0.8 0 - 4 % [facility] Basophils Percent Auto 0.5 0 - 2 % [facility] NRBC Pct Auto 0.0 0.0 - 0.2 /100WBC [facility] Neutrophils Absolute Auto 3.7 2.0 - 8.3 x10*3/uL [facility] Imm Gran Abs Auto 0.02 0.00 - 0.03 X10*3/uL [facility] Lymphocytes Absolute Auto 2.0 1.2 - 4.9 X10*3/uL [facility] Monocytes Absolute Auto 0.7 0.1 - 1.2 X10*3/uL [facility] Eosinophils Absolute Auto 0.1 0.0 - 0.4 X10*3/uL [facility] Basophils Absolute Auto 0.0 0.0 - 0.2 X10*3/uL [facility] NRBC Abs Auto 0.000 0.0 - 0.012 X10*3/uL [facility] Blood Venous blood specimen / Unknown 02/22/2025 3:05 PM EDT 02/22/2025 4:02 PM EDT [facility] LAB BLOOD ORDERABLES Final Re sult Performing Organization Address City/[facility]/ZIP Co de Phone Number [facility] [address] [place] [address] [phone] * Hepatitis C Antibody with Reflex to HCV, RNA, Quantitative, Real-Time PCR (02/14/2023 3:22 PM EDT) Hepatitis C Antibody NON-REACT AUDELIA NON-REACT AUDELIA [facility] Index 0.02 <1.00 [facility] Comment: HCV antibody was non-reactive. There is no laboratory evidence of HCV infection. In most cases, no further action is required. However, if recent HCV exposure is suspected, a test for HCV RNA (test code 24646) is suggested. For additional information please refer to http://education.Pocket Change/faq/ZAY09h1 (This link is being provided for informational/ educational purposes only.) Blood Venous blood specimen / Unknown 02/14/2023 3:22 PM EDT 02/14/2023 3:23 PM EDT Narrative [facility] - 02/15/2023 1:02 PM EDT FASTING:NO FASTING: NO [facility] LAB BLOOD ORDERABLES Final Re sult Performing Organization Address City/[facility]/ZIP Co de Phone Number [facility] [address], [place] [address] [facility] [address] [place] [address] * HIV-1/2 Antigen and Antibodies, Fourth Generation, with Reflexes (02/14/2023 3:22 PM EDT) HIV Antigen/Antibody, 4th Generation NON-REAC TIVE NON-REAC TIVE [facility] Comment: HIV-1 antigen and HIV-1/HIV-2 antibodies were not detected. There is no laboratory evidence of HIV infection. PLEASE NOTE: This information has been disclosed to you from records whose confidentiality may be protected by state law. If your state requires such protection, then the state law prohibits you from making any further disclosure of the information without the specific written consent of the person to whom it pertains, or as otherwise permitted by law. A general authorization for the release of medical or other information is NOT sufficient for this purpose. For additional information please refer to http://education.Pocket Change/faq/JCL308 (This link is being provided for informational/ educational purposes only.) The performance of this assay has not been clinically validated in patients less than 2 years old. Blood Venous blood specimen / Unknown 02/14/2023 3:22 PM EDT 02/14/2023 3:23 PM EDT Narrative [facility] - 02/15/2023 1:02 PM EDT FASTING:NO FASTING: NO [facility] BLOOD ORDERABLES Final Re sult [facility] [address], [place] [address] [facility] [address] [place] [address] * HPV E6/E7 RFLX NANCY 16 18/45 (02/14/2022 11:38 AM EDT) HPV mRNA E6/E7 rflx Not Detected Not Detected [facility] Comment: Methodology: Housekeeper Child Care-Mediated Amplification This assay detects E6/E7 viral messenger RNA (mRNA) from 14 high-risk HPV types (16,18,31,33,35,39,45,51,52,56,58,59,66,68). The analytical performance characteristics of this assay have been determined by [facility]. The modifications have not been cleared or approved by the FDA. This assay has been validated pursuant to the CLIA regulations and is used for clinical purposes. For additional information, please refer to http://education.Pocket Change/faq/BRN609e4 (This link if provided for information/ educational purposes only.) THIS TEST WAS PERFORMED AT: [facility] [address] [place] [address] [address]LO[address],[place] [address] STACEY VARGAS MD 02/14/2022 11:3 8 AM EDT Geronimo Nash MD HISTORICAL/NON ORDERABLE LABS Fi nal Result [facility] [address] [place] [address] * Hm Pap Smear (02/14/2022) Historical Provider HEALTH MAINTENANCE Final Result from Last 3 Months or Most Recently Relevant to Health Maintenance [place] [address] [place] [address] [facility] Care Teams Hydrogenation Operator Relationship Specialty Start Date End Date GlentanaDebbiBILL [address] [place] [phone] PCP - General Family Medicine 12/27/22
== END 2025-05-25 06:23 | disposition home or self-care (01) ==
LOC: CF 06:22
PROVIDERS: Visit Provider Anesthesiology
DX: M53.3 Sacrococcygeal disorders, not elsewhere classified (principal); M46.1 Sacroiliitis, not elsewhere classified
CPT/HCPCS: 27096; J2003; J2795; J3301; Q9967

== ENCOUNTER 2025-05-25 09:28 | Outpatient (AMB) | payer OTHER, SELFPAY ==
--- NOTE | 2025-05-25 09:29 | MHC.OFFVIS ---
Vital Signs 05/25/25 09:33 05/25/25 09:59 BP 95/69 104/74 Blood Pressure Location Lt brachial Lt brachial Position Sitting Sitting Pulse 68 64 Pulse Source Pulse Oximeter Pulse Oximeter Pulse Oximetry (%) 100 100 Oxygen Delivery Method Room Air Room Air Intake Visit Reasons: RIGHT THERAPEUTIC SIJ INJECTION Allergies SEAFOOD Allergy (Severe, Uncoded 02/24/25 09:03) ITCHY THROAT shellfish Allergy (Unknown, Uncoded 02/24/25 09:03) ITCHY THROAT PFSH Medical History Arthritis Chronic neck pain Obesity Dysplasia of cervix, low grade (BOBBY 1) Sciatica Abnormal uterine bleeding Fibroadenoma Migraine Anemia Surgical History History of wisdom tooth extraction History of lumpectomy of right breast (01/28/20) Hx of gastric bypass H/O tubal ligation Family History Father Asthma Social History Household Members: Children Housing: House Are you a primary critical care physician to a significant other at home: Yes (children) Do you presently have visiting nurse or other home services: No Alcohol intake: never Patient Tobacco Use Status: Never used Tobacco service: No Current occupational status: employed Current occupation: [employer] /rt handed Female Reproductive History Menstrual Age of Menarche: 8 Physical Exam Vital Signs: Last Vital Signs Pulse 64 05/25/25 09:59 BP 104/74 05/25/25 09:59 Pulse Ox 100 05/25/25 09:59 Oxygen Delivery Method Room Air 05/25/25 09:59 Assessment & Plan Assessment & Plan (1) Sacroiliitis: Code(s): M46.1 - Sacroiliitis, not elsewhere classified Category: Medical (2) Sacroiliac joint dysfunction of right side: Code(s): M53.3 - Sacrococcygeal disorders, not elsewhere classified Category: Medical Plan Right therapeutic sacroiliac joint injection. Informed consent was thoroughly explained to the patient before the procedure.? The patient came to the operating room.? She was positioned prone on operating table with a pillow under her abdomen.? Time-out was performed delineating correct site and side of the procedure, nature of the injection, name and date of of the patient. The lower back and upper buttocks of the patient was prepped with ChloraPrep and draped with sterile utility towels.? C-arm was brought over the operating field the image of the right sacroiliac joint was demonstrated on the screen. Tilting machine contralateral to the left the anterior portion of sacroiliac joint was superimposed of the posterior portion of the sacroiliac joint. After that projection of the sacroiliac joint to the skin was injected with mixture of lidocaine 2 % and ropivacaine 0.5% to form a skin wheal. After that 22 gauge 3-1/2 inch needle was inserted through the skin wheal and advanced to the sacroiliac joint. After that injection of the contrast was performed delineating intra-articular spread of the contrast. After that injection of the ropivacaine 0.5% 4 cc mixed with 1 ml of kenalog 40 mg was performed into the joint. The needle was removed sterile Band-Aid was applied. Patient tolerated the procedure well. Orders: Orders: Orders FL guidance in treatment room Today M53.3 - Sacrococcygeal disorders, not elsewhere classified Coding Level of Care Code Procedure Only Diagnoses Sacroiliitis M46.1 Sacroiliac joint dysfunction of right side M53.3
[2025-05-25 09:33] VITALS: BP 95/69; PULSE 68; O2SAT 100
[2025-05-25 09:59] VITALS: BP 104/74; PULSE 64; O2SAT 100
== END 2025-05-25 09:55 | disposition home or self-care (01) ==
LOC: HO.PMCPRC 09:28
PROVIDERS: PCP Registered Nurse; Visit Provider Anesthesiology
DX: M46.1 Sacroiliitis, not elsewhere classified (principal); M53.3 Sacrococcygeal disorders, not elsewhere classified
CPT/HCPCS: 27096

== ENCOUNTER 2025-06-16 09:35 | Outpatient (AMB) | payer OTHER, SELFPAY ==
[2025-06-16 09:41] VITALS: BP 105/69; PULSE 77; RESP 18; O2SAT 100; BMI 25.0
--- NOTE | 2025-06-16 09:41 | A.OFFVIS_ITS ---
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 It was 1 month since the procedure. She reports good mobility, excellent activities of daily living good social interactions. She reports absence of the pain on the right. She reports moderate pain on the left now on the background of absent right pain increasing in severity. I will schedule her for therapeutic left-sided sacroiliac joint injection. In the past she received therapeutic C4-C5 C6 medial branch block which relieves her pain for the long period of time. She had tried before that sprint PNS however she was unable to keep the electrodes in position. [facility] Medical History Arthritis Chronic neck pain Obesity Dysplasia of cervix, low grade (BOBBY 1) Sciatica Abnormal uterine bleeding Fibroadenoma Migraine Anemia Surgical History History of wisdom tooth extraction History of lumpectomy of right breast (01/28/20) Hx of gastric bypass H/O tubal ligation Family History Father Asthma Social History Household Members: Children Housing: House Are you a primary auto care center manager to a significant other at home: Yes (children) Do you presently have visiting nurse or other home services: No Alcohol intake: never Patient Tobacco Use Status: Never used Tobacco service: No Current occupational status: employed Current occupation: [employer] /rt handed Female Reproductive History Menstrual Age of Menarche: 8 Review of Systems Const All systems reviewed & are unremarkable except as noted in HPI and below ENT Reports Normal hearing present Neuro Reports Normal hearing present, Denies Abnormal speech present, Denies confusion and Denies Sensory deficit (Neuro) Psych Denies confusion Physical Exam Vital Signs: Last Vital Signs Pulse 77 06/16/25 09:41 Resp 18 06/16/25 09:41 BP 105/69 06/16/25 09:41 Pulse Ox 100 06/16/25 09:41 Oxygen Delivery Method Room Air 06/16/25 09:41 BMI result Body Mass Index 25.0 Const General: no acute distress; No confusion Orientation/consciousness: patient oriented x3 and No confusion Eyes General: appearance normal, both eyes and all related structures Pupils: Equal, round and reactive pupils present EOM: EOMs intact bilaterally Neck Other: Normal strength of bilateral upper extremities right compared to the left. She denies numbness in bilateral upper extremities. She denies headache. Valsalva maneuver does not aggravate her pain. Neck: No full ROM Chest Chest palpation & inspection: normal inspection of the chest Resp Effort & Inspection: normal respiratory effort, able to speak in complete sentences, normal respiratory pattern, no audible wheezes and no cough Cardio Jugular venous distension: no JVD GI Inspection: Yes normal to inspection Back/Spine/Pelvis Other: Positive Dangelo test on the right. Positive pelvic compression and pelvic distraction test on the right. Positive thigh thrust test on the right. Positive 14 finger test on the right. Neuro General: patient oriented x3, gait normal and No confusion Cranial nerves: Yes CN's II-XII intact bilaterally, Yes Equal, round and reactive pupils present, Yes Normal hearing present and Yes Ability to bilaterally elevate shoulders present Speech: No Abnormal speech present Gait exam (Neuro): Normal gait present Motor exam (neuro): 5/5 motor strength present throughout Sensory Exam: No Sensory deficit (Neuro) Extrem General: No pedal edema Psych Speech and movement: Normal speech and movement present Affect: normal affect Attitude: cooperative Thought process: Normal thought process present Thought content: Normal thought content present Insight: Good insight present (Psych) Judgement: Good judgement present (Psych) Results Reviewed Results Reviewed: MR LUMBAR SPINE WITHOUT CONTRAST CLINICAL INFORMATION: Bilateral lower back pain with sciatica. COMPARISON: None available. TECHNIQUE: MRI of the lumbar spine was obtained using routine sequences without contrast. FINDINGS: Normal anatomic alignment. Normal, homogeneous marrow signal throughout. The vertebral body heights are maintained. The intervertebral discs are of normal height and signal. The conus medullaris terminates at the level of L1-L2. The distal spinal cord is normal in appearance. No significant abnormalities of the paraspinal musculature. Limited evaluation of the intra-abdominal structures without significant abnormalities. The abdominal aorta is of normal contour and caliber. AXIAL SPINAL LEVELS: L1-L2: Normal annular contour. There is mild right and no left facet joint arthropathy. There is no neural foraminal stenosis. There is no spinal canal stenosis. L2-L3: Shallow diffuse disc bulge. There is mild bilateral facet joint arthropathy. There is no neural foraminal stenosis. There is no spinal canal stenosis. L3-L4: Normal annular contour. There is mild bilateral facet joint arthropathy. There is mild bilateral neural foraminal stenosis. There is no spinal canal stenosis. L4-L5: Shallow diffuse disc bulge. There is mild bilateral facet joint arthropathy. There is mild bilateral neural foraminal stenosis. There is no spinal canal stenosis. L5-S1: Normal annular contour. There is mild bilateral facet joint arthropathy. There is mild bilateral neural foraminal stenosis. There is no spinal canal stenosis. IMPRESSION: Mild multilevel degenerative spondyloarthropathy of the lumbar spine as described in detail above. No overt spinal canal stenosis or nerve root compression. XR CERVICAL SPINE FINDINGS: Cervical alignment preserved. Cervical vertebral body disc space heights are maintained. Mild spondylosis in the lower cervical spine. Bilateral neural foramina are patent. IMPRESSION: Mild spondylosis in the lower cervical spine. Assessment & Plan Assessment & Plan (1) Spondylosis of cervical region without myelopathy or radiculopathy: Code(s): M47.812 - Spondylosis without myelopathy or radiculopathy, cervical region Category: Medical (2) Arthropathy of facet joint: Code(s): M47.819 - Spondylosis without myelopathy or radiculopathy, site unspecified Category: Medical (3) Chronic pain syndrome: Code(s): G89.4 - Chronic pain syndrome Category: Medical (4) Myofascial neck pain: Code(s): M54.2 - Cervicalgia Category: Medical (5) Sacroiliitis: Code(s): M46.1 - Sacroiliitis, not elsewhere classified Category: Medical (6) Sacroiliac joint dysfunction of right side: Code(s): M53.3 - Sacrococcygeal disorders, not elsewhere classified Category: Medical (7) Sacroiliac joint dysfunction of left side: Code(s): M53.3 - Sacrococcygeal disorders, not elsewhere classified Category: Medical Plan No complains of the neck pain today. No complains on the pain in the right sacroiliac joint projection. On the background of good results of the injection as above her left-sided sacroiliac joint pain started to bother her stronger. I will schedule her for therapeutic left-sided sacroiliac joint injection. Patient agreed and expressed understanding of risks and benefits which were explained to her. I will see this patient 1 month after the left-sided procedure. Coding Level of Care Code Est Pt Level 3 (87708) Diagnoses Spondylosis of cervical region without myelopathy or radiculopathy M47.812 Arthropathy of facet joint M47.819 Chronic pain syndrome G89.4 Myofascial neck pain M54.2 Sacroiliitis M46.1 Sacroiliac joint dysfunction of right side M53.3 Sacroiliac joint dysfunction of left side M53.3
--- OUTSIDE RECORDS SUMMARY | 2025-06-16 10:06 | XMS_ITS | Clinical Summary ---
Author Organization [employer] Address [address] [facility] 7t [place] [address] Care Team Providers Care Director Risk Name Role Phone Rebeka [facility] Primary Care Provider [phone] Allergies Active Allergy Reactions Criticality Noted Date [...] chest pain 09/20/2023 Overview (09/20/2023): 07/23/23-seen in [facility] ED with CP and SOB. [...] of SI or self harm. Pt has [facility] crisis contact information Assessment & Plan (10/08/2023 2:30 PM EST): INCREASE remeron to 15mg at bedtime Continue lexapro 10mg Continue to work with therapist Encouraged acupuncture Contact HC if sx worsen or experiencing thoughts of SI or self harm. Pt has [facility] crisis contact information Assessment & Plan [...] q. 3 years Hx of BOBBY 2 [id number] s/p LEEP cone Followed by Dr. Nash [...] intractable 02/16/2019 Overview (06/29/2023): [place] Chronic low back pain 11/18/2018 Overview (05/10/2024): [...] negative in 02/20 Hx of BOBBY 2 [id number] s/p LEEP cone Low grade squamous intraepit [...] Description 04/07/2025 10:45 AM EDT Office Visit [facility] MEDICINE [address] [place] [address] Megan Lai MD Encounter for preventive care (Primary Dx); Reduced vision 04/07/2025 Travel 04/06/2025 Telephone [facility] [address] [place] [address] Debbi Staley FNP Chart Prep 04/06/2025 Travel 04/06/2025 Telephone [facility] MEDIC[facility] [address] [place] [address] [place], [place], [facility] Lab Orders from Last 3 Months Immunizations Immunization Administration [...] Description 08/18/2025 10:00 AM EDT Office Visit [facility] OPTOMETRY [address] [place] [address] Ludin, Beatriz, OD [address] [place] [address] Health Maintenance Due Date Last Done Comments Family Planning (PISQ) 2003 HPV Vaccines (1 - 3-dose series) 2003 Influenza Vaccine (#1) 2025 , 08/28/2023, 09/19/2022, Additional history exists Alcohol/Substance Use Screening 10/21/2025 10/21/2024 Depression Screening [...] Completed 09/30/2024, , 11/29/2021, Additional history exists HIB Vaccines Aged Out [...] WEIGHT MANAGEMENT Routine 03/30/2025 Overweight (BMI 25.0-29.9) HEPATITIS C AB W/REFL TO HCV RNA, [...] Results * T-SPOT??.TB (04/07/2025 10:34 AM EDT) [facility] T Spot TB Negative Negative [facility] Comment:A negative test resu lt [...] as aquantitative test. TS PANEL A 0 [facility] TS PANEL B 0 [facility] Negative Control Passed [facility] Positive Control Passed [facility] Comment:For additional infor bhumika, please refer tohttp://education.Proteopure/faq/WCF362(This link is being provided for informational/educational purposes only.)REPORT COMMENT:REC'D AT [facility] TEST WAS PERFORMED AT:[employer]/[id number] [place] [address]KCYRERIKERRI JUNIOR MD,PHD 04/07/2025 10:3 4 AM EDT 04/07/2025 11:07 AM EDT [facility] LAB BLOOD ORDERABLES Final Re sult Performing Organization Address [facility] Co de Phone Number [facility] [address] [place] [phone] * Hepatitis B Surface Antibody, Qualitative (04/07/2025 10:34 AM EDT) ~Hepatitis B Surface Antibody REACTIVE Nonreactive [facility] Comment:REACTIVE: > 11.99 mI U/mL Blood Venous blood specimen / Unknown 04/07/2025 10:34 AM EDT 04/07/2025 11:07 AM EDT [facility] LAB BLOOD ORDERABLES Final Re sult Performing Organization Address [facility] Co de Phone Number [facility] [address] [place] [phone] * Referral to Weight Management (03/30/2025) Result [facility] OUTPATIENT REFERRAL ORDERABLE S Final Result * Hepatitis C Antibody with Reflex to HCV, RNA, Quantitative, Real-Time PCR (02/14/2023 3:22 PM EDT) Hepatitis C Antibody NON-REACT AUDELIA NON-REACT AUDELIA [facility] Trending Tastet Index 0.02 <1.00 [facility] Comment: HCV antibody was non-reactive. There is no laboratory evidence of HCV infection. In most cases, no further action is required. However, if recent HCV exposure is suspected, a test for HCV RNA (test code 31560) is suggested. For additional information please refer to http://education.Proteopure/faq/CUC20u5 (This link is being provided for informational/ educational purposes only.) Blood Venous blood specimen / Unknown 02/14/2023 3:22 PM EDT 02/14/2023 3:23 PM EDT Narrative [facility] - 02/15/2023 1:02 PM EDT FASTING:NO FASTING: NO [facility] LAB BLOOD ORDERABLES Final Re sult Performing Organization Address City/[facility]/ZIP Co de Phone Number [address], [place] [address] [facility] [address] [place] [address] * HIV-1/2 Antigen and Antibodies, Fourth Generation, with Reflexes (02/14/2023 3:22 PM EDT) [facility] HIV Antigen/Antibody, 4th Generation NON-REAC TIVE NON-REAC TIVE [facility] Comment: HIV-1 antigen and HIV-1/HIV-2 antibodies [...] purpose. For additional information please refer to http://education.Lentigen.R&V/faq/WZT516 (This link is being provided for informational/ educational purposes only.) The performance of this assay has not been clinically validated in patients less than 2 years old. Blood Venous blood specimen / Unknown 02/14/2023 3:22 PM EDT 02/14/2023 3:23 PM EDT Narrative [facility] - 02/15/2023 1:02 PM EDT FASTING:NO FASTING: NO [facility] LAB BLOOD ORDERABLES Final Re sult [facility] [address], [place] [address] [facility] [address] [place] [address] * HPV E6/E7 RFLX NANCY 16 18/45 (02/14/2022 11:38 AM EDT) HPV mRNA E6/E7 rflx Not Detected Not Detected [facility] Comment: Methodology: Refrigeration Mechanic Helper-Mediated Amplification This assay detects E6/E7 viral messenger RNA (mRNA) from 14 high-risk HPV types (16,18,31,33,35,39,45,51,52,56,58,59,66,68). The analytical performance characteristics of this assay have been determined by [facility]. The modifications have not been cleared or approved by the FDA. This assay has been validated pursuant to the CLIA regulations and is used for clinical purposes. For additional information, please refer to http://education.Proteopure/faq/PTB321s5 (This link if provided for information/ educational purposes only.) THIS TEST WAS PERFORMED AT: [facility] [address] [address] STACEY VARGAS MD 02/14/2022 11:3 8 AM EDT Geronimo Nash MD HISTORICAL/NON ORDERABLE LABS Fi nal Result [facility] [address] * Hm Pap Smear (02/14/2022) us Historical Provider HEALTH MAINTENANCE Final Result from Last 3 Months or Most Recently Relevant to Health Maintenance Insurance [facility] Care Teams Director Risk Relationship Specialty Start Date End Date RebekaDebbi chandler FNP [address] [place] [phone] PCP - General Family Medicine 12/27/22
--- OUTSIDE RECORDS SUMMARY | 2025-06-16 10:07 | XMS_ITS | Clinical Summary ---
Author Organization [address] [place] [address] [place] [phone] Phone Care Team Providers Care Roving Court Reporter Name Role Phone Roberta Quinonez MD Primary Care Provider [phone] Allergies Active Allergy Reactions Criticality Noted Date [...] mouth every 6 (six) hours if needed. 5 Active phentermine 15 mg capsuleIndicati ons:Over weight Take 1 capsule (15 mg total) by mouth 1 (one) time each day before breakfast. Max Daily Amount: 15 mg 30 each 5 08/25/20 25 Active topiramate (Topamax) 50 mg tabletIndicatio ns:Over weight Take 1 tablet (50 mg total) by mouth at bedtime. 30 each 2 5 08/25/20 25 Active phentermine 15 mg capsuleIndicati ons:Over weight Take 1 capsule (15 mg total) by mouth 1 (one) time each day before breakfast. Max Daily Amount: 15 mg 30 each 5 05/24/20 25 Discontinu ed(Reorder ) topiramate (Topamax) 50 mg tabletIndicatio ns:Over weight Take 1 tablet (50 mg total) by mouth at bedtime. 30 each 2 5 05/24/20 25 Discontinu ed(Reorder ) Active Problems Problem Noted Date Diagnosed Date Sciatica 12/17/2024 Allergic arthritis of left knee 12/17/2024 Anxiety 04/28/2021 Eating disorder 04/28/2021 Encounters Date Type Department Care Team Description 03/31/2025 Telephone [facility] [place] [address] [facility] [address] [place] [address] Eri Michael MD Labs Only (Lab orders) 03/30/2025 4:30 PM EDT Office Visit [facility] - [place] [address] [facility] [address] [place] [address] Eri Michael MD Over weight (Primary Dx) from Last 3 Months Surgical History Surgery Date Site/Laterality Comments OTHER SURGICAL HISTORY Right PROCEDURE: [place] EXC BREAST LES PREOP PLMT RAD MARKER [...] 85 03/30/2025 4:20 PM EDT Temperature 36.6 C (97.8 F) 03/30/2025 4:20 PM EDT Respiratory Rate - - Oxygen Saturation - [...] PM EDT Office Visit [facility] - [place] [address] [facility] [address] [place] [address] Eri Michael MD [address] [facility] [address] [place] [address] Health Maintenance Due Date Last Done Comments Pneumococcal Vaccine: Pediatrics (0 to 5 Years) and At-Risk Patients (6 to 49 Years) (1 of 2 - PCV) 2007 Cervical Cancer Screening: Pap Smear 2009 Social Influencers of Health Screening 10/30/2022 COVID-19 Vaccine (6 - Pfizer risk season) 2025 09/30/2024, 12/17/2022, 11/29/2021, Additional history exists Influenza Vaccine (#1) 2025 , 08/28/2023, 09/19/2022, Additional history exists Depression Screening 10/21/2025 10/21/2024 Cholesterol Screening (Lipid Panel) 01/09/2026 01/09/2021 DTaP,Tdap,and Td Vaccines (2 - Td or Tdap) 08/09/2031 08/09/2021 Hepatitis B Vaccines Completed 06/12/2018, 10/16/2017, 09/12/2017 HIV Screening Completed 02/14/2023 Hepatitis C Screening Completed 02/14/2023 MMR Vaccines Aged Out 05/09/2023 No longer eligi ble based on patient's age to complete this topic HIB Vaccines Aged Out No longer eligi [...] mg/dL Blood Venous blood specimen / Unknown [facility] Provider LAB BLOOD ORDERABLES Catarina l Result from Last 3 Months or Most Recently Relevant to Health Maintenance Insurance [employer] [facility] Care Teams Roving Court Reporter Relationship Specialty Start Date End Date Roberta uQinonez MD [address] [place] [address] PCP - General Waiter/Waitress Room Service 10/13/20
== END 2025-06-16 09:57 | disposition home or self-care (01) ==
LOC: HO.PMC 09:36
PROVIDERS: PCP Registered Nurse; Visit Provider Anesthesiology
DX: M47.812 Spondylosis without myelopathy or radiculopathy, cervical region (principal); M47.819 Spondylosis without myelopathy or radiculopathy, site unspecified; G89.4 Chronic pain syndrome; M54.2 Cervicalgia; M46.1 Sacroiliitis, not elsewhere classified; M53.3 Sacrococcygeal disorders, not elsewhere classified
CPT/HCPCS: 99213

== ENCOUNTER 2025-07-09 15:47 | Outpatient (REF) | payer OTHER, SELFPAY ==
--- OUTSIDE RECORDS SUMMARY | 2025-07-09 15:50 | XMS_ITS | Clinical Summary ---
Author Organization [address] [place] [address] [place] [phone] Phone Care Team Providers Care Switchboard Installer Name Role Phone Roberta Quinonez MD Primary Care Provider [phone] Allergies Active Allergy Reactions Criticality Noted Date [...] Daily Amount: 15 mg 30 each 5 10/01/20 25 Active topiramate (Topamax) 50 mg tabletIndicatio ns:Over weight Take 1 tablet (50 mg total) by mouth at bedtime. 30 each 2 5 10/01/20 25 Active phentermine 15 mg capsuleIndicati ons:Over weight Take 1 capsule (15 mg total) by mouth 1 (one) time each day before breakfast. Max Daily Amount: 15 mg 30 each 5 06/30/20 25 Discontinu ed(Reorder ) topiramate (Topamax) 50 mg tabletIndicatio ns:Over weight Take 1 tablet (50 mg total) by mouth at bedtime. 30 each 2 5 06/30/20 25 Discontinu ed(Reorder ) Active Problems Problem Noted Date Diagnosed Date Sciatica 12/17/2024 Allergic arthritis of left knee 12/17/2024 Anxiety 04/28/2021 Eating disorder 04/28/2021 Surgical History Surgery Date Site/Laterality Comments OTHER SURGICAL HISTORY Right PROCEDURE: [place] EXC BREAST LES PREOP PLMT RAD MARKER [...] PM EDT Office Visit Bariatric Surgery - [place] [address] [facility] [address] [place] [phone] Eri Michael MD [address] [facility] [address] [place] [address] Health Maintenance Due Date Last Done Comments Pneumococcal Vaccine: Pediatrics (0 to 5 Years) and At-Risk Patients (6 to 49 Years) (1 of 2 - PCV) 2007 Cervical Cancer Screening: Pap Smear 2009 Social Influencers of Health Screening 10/30/2022 Depression Screening 12/02/2024 COVID-19 Vaccine (6 - Pfizer risk season) 2025 09/30/2024, 12/17/2022, 11/29/2021, Additional history exists Influenza Vaccine (#1) 2025 , 08/28/2023, 09/19/2022, Additional history exists Cholesterol Screening (Lipid Panel) 01/09/2026 01/09/2021 DTaP,Tdap,and [...] mg/dL Blood Venous blood specimen / Unknown [facility] Provider LAB BLOOD ORDERABLES Catarina l Result from Last 3 Months or Most Recently Relevant to Health Maintenance Insurance [employer] [facility] Care Teams Switchboard Installer Relationship Specialty Start Date End Date Roberta Quinonez MD [address] [place] [address] PCP - General Physical Security Specialist 10/13/20
[2025-07-09 17:51] LABS: MANUAL DIFF FLAG NO
[2025-07-09 18:04] LABS: Hematocrit 35.5 % (37.0-47.0); Hemoglobin 11.9 g/dl (12.0-16.0); Imm Gran Abs Auto 0.03 X10*3/uL (0.00-0.03); Imm Gran Pct Auto 0.4 % (0.0-0.4); Lymphocytes Absolute Auto 2.3 X10*3/uL (1.2-4.9); Mean Corpuscular HGB Conc 33.5 g/dl (31.0-35.0); Mean Corpuscular Hemoglobin 29.4 pg (27.0-33.0); Mean Corpuscular Volume 87.7 fL (80.0-98.0); NRBC Abs Auto 0.000 X10*3/uL (0.0-0.012); NRBC Pct Auto 0.0 /100WBC (0.0-0.2); Platelet Count 365 X10*3/uL (160-400); Red Blood Count 4.05 X10*6/uL (4.20-5.50); White Blood Count 8.2 X10*3/uL (4.8-10.8)
== END 2025-07-09 15:48 | disposition home or self-care (01) ==
LOC: HO.HHCL 15:47
PROVIDERS: PCP Registered Nurse; Visit Provider Nurse Practitioner Family
DX: D64.9 Anemia, unspecified (principal)
CPT/HCPCS: 36415; 82306; 85025

== ENCOUNTER 2025-11-09 06:27 | Outpatient (REF) | payer OTHER, SELFPAY ==
--- NOTE | ~2025-11-09 | FL_ITS ---
EXAMINATION: FL GUIDANCE ONLY HISTORY: M46.1 - Sacroiliitis, not elsewhere classified COMPARISON: None available. TECHNIQUE: Fluoroscopy time: 10 seconds. Cumulative Dose: 1.90 mGy. DAP: 358.00 mGycm2 Images: 2. FINDINGS: Fluoroscopic spot films of the left hemipelvis demonstrate a needle and contrast material in the region of the sacroiliac joint. FL/FL guidance in treatment room IMPRESSION: Fluoroscopy during procedure. Please see procedure report for additional information. Electronically signed by: Manoj Mora MD 11/09/2025 03:38 PM EST
--- OUTSIDE RECORDS SUMMARY | 2025-11-09 06:30 | XMS_ITS | Encounter Summary ---
Author Organization [employer] Address [address] [facility] 7 [place] [address] Care Team Providers Care Factory Machine Computer Operator Name Role Phone [facility] Primary Care Provider [phone] Reason for Visit * Reason Onset Date Comments Med Refill 10/26/2024 Encounter Details Date Type Department Care Team (Late st Contact Info) Description 10/26/2024 Refill [facility] MEDICINE [address] [place], [place] [phone] [facility] [address] [place] [address] Muscle spasms of neck; Chronic bilateral low [...] documented as of this encounter Care Teams Factory Machine Computer Operator Relationship Specialty Start Date End Date Debbi Staley FNP [address] [place] [phone] PCP - General Family Medicine 12/27/22 documented as of this encounter
--- OUTSIDE RECORDS SUMMARY | 2025-11-09 06:30 | XMS_ITS | Encounter Summary ---
Author Organization [employer] Address [address] [facility] [address]t [place] [address] Care Team Providers Care Street Roller Engineer Name Role Phone Debbi Staley BUGGY LOADER Primary Care Provider [phone] Reason for Visit * Reason Onset Date Comments Med Refill 09/18/2023 Encounter Details Date Type Department Care Team (Late st Contact Info) Description 09/18/2023 Refill [facility] [address] [place] [address] Christine Muhammad FNP Social History Tobacco Use [...] t he electric, gas, oil or water [place] threatened to shut off services in your [...] documented as of this encounter Care Teams Street Roller Engineer Relationship Specialty Start Date End Date Debbi Staley FNP [address] [place] [phone] PCP - General Family Medicine 12/27/22 documented as of this encounter
--- OUTSIDE RECORDS SUMMARY | 2025-11-09 06:30 | XMS_ITS | Clinical Summary ---
Author Organization [address] [place] [address] [place] [phone] Phone Care Team Providers Care Trimmer Machine Name Role Phone Roberta Quinonez MD Primary Care Provider [phone] Allergies Active Allergy Reactions Criticality Noted Date Comments Other 04/04/2021 Seafood Medications aspirin/acetaminop hen/caffeine (EXCEDRIN MIGRAINE ORAL) Take by mouth. Active [...] 6 (six) hours if needed. 5 Active topiramate (Topamax) 50 mg tabletIndications: Over weight Take 1 tablet (50 mg total) by mouth at bedtime. 30 each 2 5 Active phentermine 15 mg capsuleIndications :Over weight Take 1 capsule (15 mg total) by mouth 1 (one) time each day before breakfast. Max Daily Amount: 15 mg 30 each 5 01/05/20 26 Active zinc gluconate 50 mg tabletIndications: Postoperative malabsorption Take 1 tablet (50 mg total) by mouth 1 (one) time each day. 30 tablet 5 10/07/20 26 Active Active Problems Problem Noted Date Diagnosed Date Vitamin D deficiency 07/14/2025 Reduced vision 04/07/2025 Sciatica 12/17/2024 Allergic arthritis of left knee 12/17/2024 Joint pain 05/10/2024 Overview (08/12/2025): Joint pain-negative CCP, RF, CRP, ESR, 03/2024. Pain mngmt Breast ptosis 11/01/2023 Upper back pain 11/01/2023 Pannus, abdominal 11/01/2023 Skin laxity 11/01/2023 Other chest pain 09/20/2023 Overview (08/12/2025): ? 07/23/23-seen in [facility] with CP and SOB. EKG, CXR negative. Extensive hx of recurrent sx. Previously evaluated by cardiology with negative work up. Denies recurrent sx. Spondylosis of lumbar region without myelopathy or radiculopathy 08/27/2023 YONATHAN (generalized anxiety disorder) 07/22/2023 Overview (08/12/2025): lexapro 10mg Remeron 15 mg at bedtime Established with therapist Major depressive disorder, recurrent episode Chronic neck pain 06/29/2023 Overview (08/12/2025): Neg xray 2017 No improvement with PT Tachycardia 06/29/2023 Overview (08/12/2025): Followed by cardiology; not a good candidate [...] with hematocrit 34.6. Last TSH 02/21/2022 0.96. Anxiety 04/28/2021 Eating disorder 04/28/2021 Fibroadenoma of breast 02/16/2019 Iron deficiency anemia 02/16/2019 Overview (08/12/2025): Unable to tolerate oral iron Mirena IUD Followed by heme--> stable post IUD. No longer requires heme follow up Chronic low back pain 11/18/2018 Overview (08/12/2025): Previously Followed by pain management without improvement. 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) 0 02/07/2018 Overview (08/12/2025): Pap/HPV was negative in 02/20 Hx of BOBBY 2 [id number] s/p LEEP cone Low grade squamous intraepit helial lesion (LGSIL) on cervicovaginal cytologic smear 02/07/2018 Anemia 09/25/2017 Encounters Date Type Department Care Team Description 10/06/2025 Telephone Bariatric Surgery - [address] [address] Eri Michael MD 08/12/2025 4:00 PM EDT Office Visit Bariatric Surgery [address] [address] Eri Michael MD Intestinal malabsorption following gastrectomy (Primary Dx) from Last 3 Months Surgical History Surgery Date Site/Laterality Comments OTHER SURGICAL HISTORY Right PROCEDURE: CT EXC BREAST LES PREOP PLMT RAD MARKER [...] on file Sexual Orientation Not on file Last Filed Vital Signs Vital Sign Reading Time Taken Comments Blood Pressure 96/62 08/12/2025 3:04 PM EDT Pulse 80 08/12/2025 3:04 PM EDT Temperature 36.6 C (97.8 F) 08/12/2025 3:04 PM EDT Respiratory Rate - - Oxygen Saturation - - Inhaled Oxygen Concentration - - Weight 57.6 kg (127 lb) 08/12/2025 3:04 PM EDT Height 149.9 cm (4' 11 ) 08/12/2025 3:04 PM EDT Body Mass Index 25.65 08/12/2025 3:04 PM EDT Plan of Treatment Upcoming Encounters Date Type Department Care Team (Late st Contact Info) Description 02/15/2026 2:45 PM EDT Office Visit Bariatric Surgery - [address] [place] [address] Eri Michael MD [address] [place] [phone] Health Maintenance Due Date Last Done Comments Pneumococcal Vaccine: Pediatrics (0 to 5 Years) and At-Risk Patients (6 to 49 Years) (1 of 2 - PCV) 2007 Cervical Cancer Screening: Pap Smear 2009 HPV Vaccines (1 - Risk 3-dose SCDM series) 2015 Social Influencers of Health Screening 10/30/2022 Depression Screening 12/02/2024 COVID-19 Vaccine ( season) 2025 09/30/2024, 12/17/2022, 11/29/2021, Additional history exists Influenza Vaccine (#1) 2025 , 08/28/2023, 09/19/2022, Additional history exists Cholesterol Screening (Lipid Panel) 01/09/2026 01/09/2021 DTaP,Tdap,and Td Vaccines (2 - Td or Tdap) 08/09/2031 08/09/2021 RSV Immunization Adult Patients (1 - 1-dose 75+ series) 2063 Hepatitis [...] Procedure Name Priority Date/Time Associated Diagnosis Comments ALBUMIN Routine 08/12/2025 3:50 PM EDT Intestinal malabsorption following gastrectomy CALCIUM Routine 08/12/2025 3:50 PM EDT Intestinal malabsorption following gastrectomy FOLATE Routine 08/12/2025 3:50 PM EDT Intestinal malabsorption following gastrectomy IRON AND TIBC Routine 08/12/2025 3:50 PM EDT Intestinal malabsorption following gastrectomy VITAMIN B12 Routine 08/12/2025 3:50 PM EDT Intestinal malabsorption following gastrectomy VITAMIN D 25 HYDROXY Routine 08/12/2025 3:50 PM EDT Intestinal malabsorption following gastrectomy ZINC Routine 08/12/2025 3:50 PM EDT Intestinal malabsorption following gastrectomy LIPID PANEL Routine 01/09/2021 from Last 3 Months or Most Recently Relevant to Health Maintenance Results * Iron and TIBC (08/12/2025 3:50 PM EDT) Iron 56 40 - 150 mcg/dL LAB CHEMISTRY METHOD 08/12/2025 6:40 PM EDT [facility] TIBC 310 250 - 450 mcg/dL LAB CHEMISTRY METHOD 08/12/2025 6:40 PM EDT [facility] Iron Saturation 18 15 - 50 % LAB CHEMISTRY METHOD 08/12/2025 6:40 PM EDT [facility] Blood Venous blood specimen / Unknown Venipuncture / Unknown 08/12/2025 3:50 PM EDT 08/12/2025 3:50 PM EDT us Eri Michael MD LAB BLOOD ORDERABLES Final R esult [facility] [address] [place] [address], [place] [phone] * (ABNORMAL) Zinc (08/12/2025 3:50 PM EDT) Zinc 54(L) 60 - 130 ug/dL 08/16/2025 12:52 PM EDT [facility] Comment: Elevated results may be due to sample collected in a non-certified trace element-free tube. This test was developed and the performance characteristics determined by [facility]. It has not been cleared or approved by the FDA. The laboratory is regulated under CLIA as qualified to perform high-complexity testing. This test is used for patient testing purposes. It should not be regarded as investigational or for research. Test performed at [facility], [address], [place] [address] Sheela Giordano MD, PhD - Sales And Marketing Professional Blood Venous blood specimen / Unknown Venipuncture / Unknown 08/12/2025 3:50 PM EDT 08/12/2025 3:50 PM EDT Eri Michael MD LAB BLOOD ORDERABLES Final R esult [place] [address] * (ABNORMAL) Vitamin D 25 hydroxy (08/12/2025 3:50 PM EDT) Pathologist [facility] Vit D, 25-Hydroxy 17.2(L) 30.0 - 80.0 ng/mL LAB CHEMISTRY METHOD 08/12/2025 8:39 PM EDT [facility] Blood Venous blood specimen / Unknown Venipuncture / Unknown 08/12/2025 3:50 PM EDT 08/12/2025 3:50 PM EDT Eri Michael MD LAB BLOOD ORDERABLES Final R esult Performing Organization Address City/[facility]/ZIP Co de Phone Number [facility] [address] [place] [address], [place] [phone] * Folate (08/12/2025 3:50 PM EDT) [facility] Folate 8.5 2.8 - 17.0 ng/ml LAB CHEMISTRY METHOD 08/12/2025 7:03 PM EDT [facility] Blood Venous blood specimen / Unknown Venipuncture / Unknown 08/12/2025 3:50 PM EDT 08/12/2025 3:50 PM EDT Eri Michael MD LAB BLOOD ORDERABLES Final R esult [facility] [address] [place] [address], [place] [phone] * Vitamin B12 (08/12/2025 3:50 PM EDT) [facility] Vitamin B-12 310 250 - 900 pcg/mL LAB CHEMISTRY METHOD 08/12/2025 7:03 PM EDT [facility] Blood Venous blood specimen / Unknown Venipuncture / Unknown 08/12/2025 3:50 PM EDT 08/12/2025 3:50 PM EDT us Eri Michael MD LAB BLOOD ORDERABLES Final R esult Performing Organization Address City/[facility]/ZIP Co de Phone Number [facility] [address] [place] [address], [place] [phone] * Calcium (08/12/2025 3:50 PM EDT) Calcium 8.8 8.5 - 10.5 mg/dL LAB CHEMISTRY METHOD 08/12/2025 6:40 PM EDT [facility] Blood Venous blood specimen / Unknown Venipuncture / Unknown 08/12/2025 3:50 PM EDT 08/12/2025 3:50 PM EDT us Eri Michael MD LAB BLOOD ORDERABLES Final R esult Performing Organization Address [facility]/ZIP Co de Phone Number [facility] [address] [place] [address], [place] [phone] * Albumin (08/12/2025 3:50 PM EDT) Albumin 3.9 3.2 - 5.0 g/dL LAB CHEMISTRY METHOD 08/12/2025 6:40 PM EDT [facility] Blood Venous blood specimen / Unknown Venipuncture / Unknown 08/12/2025 3:50 PM EDT 08/12/2025 3:50 PM EDT us Eri Michael MD LAB BLOOD ORDERABLES Final R esult Performing Organization Address City/[facility]/ZIP Co de Phone Number [facility] [address] [place] [address], [place] [phone] * (ABNORMAL) Lipid panel (01/09/2021) LDL/HDL Ratio 3 0 - 4 Triglycerides 56 0 - 150 mg/dL Cholesterol 184 0 - 200 mg/dL HDL 67 >=40 mg/dL LDL Cholesterol 106(A) 0 - 100 mg/dL Blood Venous blood specimen / Unknown Historical Provider LAB BLOOD ORDERABLES Catarina l Result from Last 3 Months or Most Recently Relevant to Health Maintenance Insurance [employer] [facility] [employer] [facility] Care Teams Trimmer Machine Relationship Specialty Start Date End Date Roberta Quinonez MD [address] [place] [address] PCP - General Condenser Tube Tender 10/13/20
--- OUTSIDE RECORDS SUMMARY | 2025-11-09 06:30 | XMS_ITS | Clinical Summary ---
Author Organization [employer] Address [address] [facility] [address] [place] [address] Care Team Providers Care Ton Container Shipper Name Role Phone Debbi Staley SCRAP PICKER Primary Care Provider [phone] Allergies Active Allergy Reactions Criticality Noted Date [...] NEEDED FOR MUSCLE SPASMS 30 tablet 3 07/02/2025 Active cholecalciferol (Vitamin D-3) 50 MCG (1999 UT) capsuleIndicati ons:Vitamin D deficiency Take 1 capsule (50 mcg) by mouth Once per day. 30 capsule 1 07/14/2025 Active phentermine 15 MG capsule Take 15 mg by mouth before breakfast. 08/06/2025 Active topiramate 50 MG tablet 08/06/2025 Active hydrOXYzine HCl (Atarax) 25 MG tabletIndicatio ns:YONTAHAN (generalized anxiety disorder) TAKE 1 TABLET BY MOUTH EVERY 6 HOURS NEEDED FOR ANXIETY 90 tablet 1 09/02/2025 Active Active Problems Problem Noted Date Diagnosed Date Vitamin D deficiency 07/14/2025 Reduced vision 04/07/2025 Joint pain 05/10/2024 Overview (05/10/2024): Joint pain-negative CCP, RF, CRP, ESR, 03/2024. Pain mngmt Other chest pain 09/20/2023 Overview (09/20/2023): 07/23/23-seen in [facility] with CP and SOB. EKG, CXR [...] of SI or self harm. Pt has [facility] crisis contact information Assessment & Plan (10/08/2023 2:30 PM EST): INCREASE remeron to 15mg at bedtime Continue lexapro 10mg Continue to work with therapist Encouraged acupuncture Contact HC if sx worsen or experiencing thoughts of SI or self harm. Pt has [facility] crisis contact information Assessment & Plan (09/01/2023 [...] with PT Hx of bariatric surgery 06/29/2023 Tachycardia 06/29/2023 Overview (06/29/2023): Followed by cardiology; [...] intractable 02/16/2019 Overview (06/29/2023): [place] in [place] Chronic low back pain 11/18/2018 Overview (05/10/2024): [...] negative in 02/20 Hx of BOBBY 2 [id number] s/p LEEP cone Low grade squamous intraepit helial lesion (LGSIL) on cervicovaginal cytologic smear 02/07/2018 Anemia 09/25/2017 Resolved Problems Problem Noted Date Diagnosed Date Resolved Date Anterior knee pain 08/27/2023 Arthropathy of facet joint 08/27/2023 1 Breast mass, right 08/27/2023 3 COVID-19 08/27/2023 09/01/2023 IUD check up 08/27/2023 09/01/2023 Nipple discharge 08/27/2023 09/01/2023 Palpitations 08/27/2023 09/01/2023 Pelvic pain 08/27/2023 09/01/2023 Trapezius muscle spasm 08/27/202309/01 Abnormal uterine bleeding 11/18/2018 Obesity (BMI 30.0-34.9) 11/18/2018 1012/2022 Encounters Date Type Department Care Team Description 11/08/2025 Refill [facility] [address] [place] [address] Debbi Staley, SCRAP PICKER Muscle spasms of neck 11/08/2025 Refill [facility] [address] [place] [address] RebekaDebbi chandler, SCRAP PICKER YONATHAN (generalized anxiety disorder) 10/06/2025 Refill [facility] [address] [place] [address] HarviellDebbi chandler, SCRAP PICKER Muscle spasms of neck; YONATHAN (generalized anxiety disorder) 09/22/2025 10:30 AM EDT Immunization [facility] [address] [place] [address] Mirela Abreu, RN Encounter for vaccination; Encounter for immunization 09/22/2025 Travel 09/21/2025 Telephone [facility] [address] [place] [address] Debbi Staley FNP Appointment Request 09/02/2025 Refill [facility] [address] [place] [address] RebekaDebbi chandler FNP YONATHAN (generalized anxiety disorder) 08/18/2025 10:00 AM EDT Office Visit [facility] OPTOMETRY [address] [facility] [place] [address] Ludin, Beatriz, OD White without pressure of peripheral retina of left eye (Primary Dx); Chorioretinal scar of left eye; Meibomian gland disease of both eyes, unspecified eyelid; Myopia of both eyes 08/18/2025 Travel 08/12/2025 Travel from Last 3 Months Immunizations Immunization Administration Dates Next Due Hep B, adult 06/12/2018,10/16/2017,09/12/2017 Influenza injectable quadriv alent IIV4 with preservative 09/08/2019,10/16/2017 Influenza injectable quadriv alent preservative free 08/28/2023,09/19/2022,08/25/2021,2019,12/31/2018 Influenza, seasonal, injecta ble, preservative free 09/22/2025,09/30/2024 MMR 05/09/2023 Pfizer Covid-19 Vaccine 12+ 09/22/2025, Tdap 08/09/2021 Family History Medical History Relation [...] the past 12 months, has t he [employer], gas, oil or water company threatened to shut off services in your home? No 04/07/2025 Depression Answer Date Recorded Patient Health Questionnaire-2 Score 2 10/21/2024 Internet Access Answer Date Recorded Internet Access Q1 No 04/07/2025 Internet Access Q2 I do not want or need it 06/2025 Comments No Intention Date Recorded No desire to become (finding) 0 07/09/2025 Sex and Gender Information Value Date Recorded Sex Assigned at Female 10/01/2022 10:32 AM EDT Legal Sex Female 10:32 AM EDT Gender Identity Female 10/01/2022 10:32 AM EDT Sexual Orientation Straight 10/01/2022 10 :32 AM EDT Last Filed Vital Signs Vital Sign Reading Time Taken Comments Blood Pressure 102/62 07/09/2025 3:11 PM EDT Pulse 79 07/09/2025 3:11 PM EDT Temperature 37 C (98.6 F) 07/09/2025 3:11 PM EDT Respiratory Rate 18 07/09/2025 3:11 PM EDT Oxygen Saturation 99% 07/09/2025 3:11 PM EDT Inhaled Oxygen Concentration - - Weight 59.5 kg (131 lb 4 oz) 07/09/2025 3:11 PM EDT Height 149.9 cm (4' 11 ) 07/09/2025 3:11 PM EDT Body Mass Index 26.51 07/09/2025 3:11 PM EDT Plan of Treatment Health Maintenance Due Date Last Done Comments Alcohol/Substance Use Screening 2000 HPV Vaccines (1 - 3-dose series) 2003 Depression Screening 10/21/2025 10/21/2024, 10/21/20 24 Disability Screening 04/07/2026 04/07/2025 SDOH Screening 04/07/2026 04/07/2025 Family Planning (PISQ) 07/14/2026 07/14/2025 Tobacco Screening 08/23/2026 08/23/2025 Cervical Cancer Screening 02/14/2027 HPV/Cotest 02/14/2027 02/14/2022, [...] C Screening Completed 02/14/2023 COVID-19 Vaccine Completed 09/22/2025, , 12/17/2022, Additional history exists Influenza Vaccine Completed 09/22/2025, , 08/28/2023, Additional history exists HIB Vaccines Aged Out [...] 02/14/2023 3:22 PM EDT Healthcare maintenance HIV 2 ANTIGEN/ANTIBODY, FOURTH GENERATION W/RFL Routine 02/14/2023 3:22 PM EDT Healthcare maintenance ZZZ HISTORICAL HPV E6/E7 RFLX NANCY 16 18/45 Routine 02/14/2022 11:38 AM EDT HM PAP/HPV Routine 02/14/2022 from Last 3 Months or Most Recently Relevant to Health Maintenance Results * Hepatitis C Antibody with Reflex to HCV, RNA, Quantitative, Real-Time PCR (02/14/2023 3:22 PM EDT) Hepatitis C Antibody NON-REACT AUDELIA NON-REACT AUDELIA [facility] Index 0.02 <1.00 [facility] Comment: HCV antibody was non-reactive. There is no laboratory evidence of HCV infection. In most cases, no further action is required. However, if recent HCV exposure is suspected, a test for HCV RNA (test code 84460) is suggested. For additional information please refer to http://education.Akanoo/faq/WFB52h3 (This link is being provided for informational/ educational purposes only.) Blood Venous blood specimen / Unknown 02/14/2023 3:22 PM EDT 02/14/2023 3:23 PM EDT Narrative [facility] - 02/15/2023 1:02 PM EDT FASTING:NO FASTING: NO [facility] LAB BLOOD ORDERABLES Final Re sult [facility] [address], [place] [address] [facility] [employer] [facility] [employer] [address] [place] [address] * HIV-1/2 Antigen and Antibodies, Fourth Generation, with Reflexes (02/14/2023 3:22 PM EDT) HIV Antigen/Antibody, 4th Generation NON-REAC TIVE NON-REAC TIVE [facility] Comment: HIV-1 antigen and HIV-1/HIV-2 antibodies were [...] purpose. For additional information please refer to http://Metrilus.Akanoo/faq/ZSK475 (This link is being provided for informational/ educational purposes only.) The performance of this assay has not been clinically validated in patients less than 2 years old. Blood Venous blood specimen / Unknown 02/14/2023 3:22 PM EDT 02/14/2023 3:23 PM EDT Narrative [facility] - 02/15/2023 1:02 PM EDT FASTING:NO FASTING: NO [facility] LAB BLOOD ORDERABLES Final Re sult [facility] [address], [place] [address] [facility] [address] [place] [address] * HPV E6/E7 RFLX NANCY 16 18/45 (02/14/2022 11:38 AM EDT) HPV mRNA E6/E7 rflx Not Detected Not Detected [facility] Comment: Methodology: Wheelchair Van Operator First Responder-Mediated Amplification This assay detects E6/E7 viral messenger RNA (mRNA) from 14 high-risk HPV types (16,18,31,33,35,39,45,51,52,56,58,59,66,68). The analytical performance characteristics of this assay have been determined by [facility]. The modifications have not been cleared or approved by the FDA. This assay has been validated pursuant to the CLIA regulations and is used for clinical purposes. For additional information, please refer to http://Metrilus.Akanoo/faq/RIM281x3 (This link if provided for information/ educational purposes only.) THIS TEST WAS PERFORMED AT: [facility] [address] [place] [address] [address]LO[address],[place] [address] STACEY VARGAS MD 02/14/2022 11:3 8 AM EDT Geronimo Nash MD HISTORICAL/NON ORDERABLE LABS Fi nal Result [facility] [address] * Pap Smear (02/14/2022) Historical Provider HEALTH MAINTENANCE Final Result from Last 3 Months or Most Recently Relevant to Health Maintenance [place] [address] [place] [address] 2 [employer] O Care Teams Ton Container Shipper Relationship Specialty Start Date End Date Debbi Staley FNP [address] [place] [phone] PCP - General Family Medicine 12/27/22
--- OUTSIDE RECORDS SUMMARY | 2025-11-09 06:30 | XMS_ITS | Encounter Summary ---
Author Organization [employer] Address [address] [place] [address] 7 [place] [address] Care Team Providers Care Drawing In Hand Name Role Phone [facility] Primary Care Provider [phone] Reason for Visit * Reason Onset Date Comments Question 01/16/2023 Encounter Details Date Type Department Care Team ([facility] st Contact Info) Description 01/16/2023 Telephone [facility] [address] [place], [place] [phone] [facility] [address] [place] [address] Question Social History Tobacco Use Types Packs/Day [...] AM EST TC placed to pt, utilizing [facility] Intern ID:[id number], regarding message below. Pt reports ongoing pain [...] to help more. Please contact pt at [phone] * Telephone Encounter - Neela Snell - 01/16/2023 11:51 AM EST Tc from pt stating that she has started physical therapy and has been going for 3 days but feels that the therapies are not working , and asking if there is another solution that would be able to help more. Please contact pt at [phone] documented in this encounter Plan of Treatment Not on file documented as of this encounter Visit Diagnoses Not on filedocumented in this encounter Care Teams Drawing In Hand Relationship Specialty Start Date End Date Debbi Staley FNP [address] [place] [phone] PCP - General Family Medicine 12/27/22 documented as of this encounter
--- OUTSIDE RECORDS SUMMARY | 2025-11-09 06:30 | XMS_ITS | Encounter Summary ---
Author Organization [employer] Address [address] [place] [address] 7 [place] [address] Care Team Providers Care Director Of Outpatient Services Name Role Phone [facility] Primary Care Provider [phone] Reason for Visit * Reason Onset Date Comments Med Refill 11/08/2025 Encounter Details Date Type Department Care Team (Late st Contact Info) Description 11/08/2025 Refill [facility] [address] [place], [place] [phone] [facility] [address] [place] [address] YONATHAN (generalized anxiety disorder) Social History Tobacco [...] documented as of this encounter Care Teams Director Of Outpatient Services Relationship Specialty Start Date End Date Debbi Staley FNP [address] [place] [address] PCP - General Family Medicine 12/27/22 documented as of this encounter
--- OUTSIDE RECORDS SUMMARY | 2025-11-09 06:30 | XMS_ITS | Encounter Summary ---
Author Organization [employer] Address [address] [place] [address] 7 [place] [address] Care Team Providers Care Hydro Plant Site Manager Name Role Phone [facility] Primary Care Provider [phone] Reason for Visit * Reason Onset Date Comments Med Refill 02/21/2025 Encounter Details Date Type Department Care Team (Late st Contact Info) Description 02/21/2025 Refill [facility] [address] [place], [place] [phone] [employer] [address] [place] [address] Chronic bilateral low back pain with bilateral [...] documented as of this encounter Care Teams Hydro Plant Site Manager Relationship Specialty Start Date End Date Debbi Staley FNP [address] [place] [phone] PCP - General Family Medicine 12/27/22 documented as of this encounter
--- OUTSIDE RECORDS SUMMARY | 2025-11-09 06:30 | XMS_ITS | Encounter Summary ---
Author Organization [employer] Address [address] [facility] 7 [place] [address] Care Team Providers Care Cafe Operator Name Role Phone [facility] Primary Care Provider [phone] Reason for Visit * Reason Onset Date Comments Med Refill 09/18/2023 Encounter Details Date Type Department Care Team (Late st Contact Info) Description 09/18/[address] [facility] [address] [place], [place] [phone] [facility] [address] [place] [address] Muscle spasms of neck; YONATHAN (generalized anxiety [...] documented as of this encounter Care Teams Cafe Operator Relationship Specialty Start Date End Date Debbi Staley FNP [address] [place] [address] PCP - General Family Medicine 12/27/22 documented as of this encounter
--- OUTSIDE RECORDS SUMMARY | 2025-11-09 06:30 | XMS_ITS | Clinical Summary ---
Author Organization [facility] Address [address] [place] [address] Phone Care Team Providers Care Duct Maker Name Role Phone [facility] Primary Care Provider Unavailable Allergies Active Allergy Reactions Criticality Noted Date Comments Fish Derived 10/29/2023 Medications baclofen (LIORESAL) 5 mg tablet Take 5 mg by mouth 2 (two) times a day as needed. 3 Active cyclobenzaprine (FLEXERIL) 10 MG tablet Take 10 mg by mouth every 8 (eight) hours as needed. 3 Active diclofenac sodium (SOLARAZE) 3 % Gel APPLY TOPICALLY TO THE AFFECTED AREA(S) TWICE DAILY NEEDED 3 Active escitalopram oxalate (LEXAPRO) 5 MG tablet Take 1 tablet by mouth every morning. 3 Active mirtazapine (REMERON) 15 MG tablet Take 15 mg by mouth nightly at bedtime. 3 Active traZODone (DESYREL) 50 MG tablet Take by mouth nightly at bedtime. 3 Active famotidine (PEPCID) 10 MG tablet Take 10 mg by mouth 2 (two) times a day. Active aspirin-acetami nophen-caffeine (EXCEDRIN MIGRAINE) 250-250-65 mg per tablet Take 1 tablet by mouth every 6 (six) hours as needed for pain (specific location in comments). Active Active Problems Problem Noted Date Diagnosed Date Breast ptosis 11/01/2023 Skin laxity 11/01/2023 Neck pain 11/01/2023 Upper back pain 11/01/2023 Pannus, abdominal 11/01/2023 Family History Relation Status Comments Father Alive Mother Alive Social History Tobacco Use Types Packs/Day Years Used Date Smoking Tobacco: Never Smokeless Tobacco: Never Tobacco Cessation:Counseling Given: Not Answered Alcohol Use Standard Drinks/Week Comments Yes 0 (1 standard drink = 0.6 oz pur e alcohol) Education Answer Date Recorded Are you interested in more education? Not on dinora e 08/15/2023 Are you concerned about learning? Not on file 08/15/2023 No 08/15/2023 No 08/15/2023 Digital Access Answer Date Recorded No 08/15/2023 No 08/15/2023 Reliable internet access at home? Not on file 08/15/2023 Device with a working camera? Not on file Comments Unknown Sex and Gender Information Value Date Recorded Sex Assigned at Not on file Legal Sex Female 2:27 PM EDT Gender Identity Not on file Sexual Orientation Not on file Last Filed Vital Signs Vital Sign Reading Time Taken Comments Blood Pressure 94/54 10/29/2023 1:10 PM EST Pulse 74 10/29/2023 1:10 PM EST Temperature - - Respiratory Rate - - Oxygen Saturation - - Inhaled Oxygen Concentration - - Weight 51.6 kg (113 lb 12.8 oz) 10/29/2023 1:10 PM EST Height 151.1 cm (4' 11.5 ) 10/29/2023 1:10 PM ES T Body Mass Index 22.6 10/29/2023 1:10 PM EST Plan of Treatment Health Maintenance Due Date Last Done Comments Adult Td,Tdap Booster 1988 DEPRESSION SCREENING 2000 HEPATITIS C SCREENING 2006 HIV ONE-TIME SCREENING (18-6 5 YEARS) 2006 PAP SMEAR 2009 INFLUENZA VACCINE (#1) 2025 COVID-19 VACCINE (2024-2 6 season) 2025 SMOKING STATUS SCREENING (On ce After 26 Yrs) Completed 10/29/2023 HEPATITIS A VACCINES Aged Out No long er eligible based on patient's age to complete this topic HIB VACCINES Aged Out No longer eligi ble based on patient's age to complete this topic MENINGOCOCCAL VACCINES (ACWY) Aged Out No longer eligible based on patient's age to complete this topic MENINGOCOCCAL VACCINES (B) Aged Out N o longer eligible based on patient's age to complete this topic PNEUMOCOCCAL VACCINES (0-49 years) Aged Out No longer eligible based on patient's age to complete this topic Medical Devices Not on file Insurance [employer] Care Teams Duct Maker Relationship Specialty Start Date End Date CenterJosr MD PCP - General 08/15/23 Additional Source Comments The information contained in this document represents components of the legal health record. It is not the complete legal health record.[facility]
--- OUTSIDE RECORDS SUMMARY | 2025-11-09 06:30 | XMS_ITS | Encounter Summary ---
Author Organization [employer] Address [address] [facility] 7t [place] [address] Care Team Providers Care Conduit Helper Name Role Phone Debbi Staley [employer] Primary Care Provider [phone] Reason for Visit * Reason Comments Med Refill Encounter Details Date Type Department Care Team ([facility] st Contact Info) Description 09/18/2023 Refill [facility] [address] [place] [address] Christine Muhammad FNP Social History Tobacco Use [...] documented as of this encounter Care Teams Conduit Helper Relationship Specialty Start Date End Date Debbi Staley FNP [address] [place] [id number] PCP - General Family Medicine 12/27/22 documented as of this encounter
--- OUTSIDE RECORDS SUMMARY | 2025-11-09 06:30 | XMS_ITS | Encounter Summary ---
Author Organization [employer] Address [address] [place] [address] 7 [place] [address] Care Team Providers Care Concrete Mixer Truck Driver Name Role Phone [facility] Primary Care Provider [phone] Reason for Visit * Reason Onset Date Comments Med Refill 10/06/2025 Encounter Details Date Type Department Care Team (Late st Contact Info) Description 10/06/2025 Refill [facility] [address] [place], [place] [phone] [facility] [address] [place] [address] Muscle spasms of neck; YONATHAN (generalized anxiety [...] documented as of this encounter Care Teams Concrete Mixer Truck Driver Relationship Specialty Start Date End Date Debbi Staley FNP [address] [place] [address] PCP - General Family Medicine 12/27/22 documented as of this encounter
--- OUTSIDE RECORDS SUMMARY | 2025-11-09 06:30 | XMS_ITS | Encounter Summary ---
Author Organization [employer] Address [address] [place] [address] 7 [place] [address] Care Team Providers Care Landscape Engineer Name Role Phone [facility] Primary Care Provider [phone] Reason for Visit * Reason Onset Date Comments Med Refill 11/08/2025 Encounter Details Date Type Department Care Team (Late st Contact Info) Description 11/08/[address] [facility] [address] [place], [place] [phone] [facility] 230 [place] [address] Muscle spasms of neck Social History Tobacco Use Types Packs/Day Years [...] Visit Diagnoses Diagnosis Muscle spasms of neck documented in this encounter Additional Health Concerns Assessment Noted Time PHQ-9 Depression Total Score: 8 10/21/20 24 9:01 AM EST documented as of this encounter Care Teams Landscape Engineer Relationship Specialty Start Date End Date Debbi Staley FNP [address] [place] [address] PCP - General Family Medicine 12/27/22 documented as of this encounter
--- OUTSIDE RECORDS SUMMARY | 2025-11-09 06:30 | XMS_ITS | Encounter Summary ---
Author Organization [employer] Address [address] [facility] 7t [place] [address] Care Team Providers Care Fret Saw Operator Name Role Phone Debbi Staley PYTHON DEVELOPER Primary Care Provider Encounter Details Date Type Department Care Team (Late st Contact Info) Description 08/27/2023 Orders Only [facility] [address] [place] [address] Provider, MD Tony Social History Tobacco Use [...] AM EDT documented as of this encounter Functional Status * Over the past 2 weeks, how often have you been bothered by any of the following problems? Question Answer Date of Assessment Author Patient Health Questionnaire-2 Score 4 08/28/2023 11:37 AM EDT Ariella Freed MA * How difficult have these problems made it for you to do your work, take care of things at home, or get along with other people? Answer Date of Assessment Author Somewhat difficult 08/28/2023 11:37 AM EDT Ariella Lorenzo MA * Over the past 2 weeks, how often have you been bothered by any of the following problems? Question Answer Date of Assessment Author Little interest or pleasure in doing things More than half the days 08/28/2023 11:37 AM Ariella Warner MA Feeling down, depressed, or hopeless More than half the days 08/28/2023 11:37 AM Ariella Warner MA Trouble falling or staying asleep, or sleeping too much More than half the days 08/28/2023 11:37 AM Ariella Warner MA Feeling tired or having little energy More than half the days 08/28/2023 11:37 AM Ariella Warner MA Poor appetite or overeating More than half the days 08/28/2023 11:37 AM Ariella Warner MA Feeling bad about yourself - or that you are a failure or have let yourself or your family down More than half the days 08/28/2023 11:37 AM Ariella Warner MA Trouble concentrating on things, such as reading the newspaper or watching television More than half the days 08/28/2023 11:37 AM Ariella Warner MA Moving or speaking so slowly that other people could have noticed? Or the opposite - being so fidgety or restless that you have been moving around a lot more than usual. More than half the days 08/28/2023 11:37 AM Ariella Warner MA Thoughts that you would be better off or hurting yourself in some way Not at all 08/28/2023 11:37 AM Ariella Warner MA Patient Health Questionnaire-9 Score 16 08/28/2023 11:37 AM Ariella Warner MA documented as of this encounter Plan of [...] documented as of this encounter Care Teams Fret Saw Operator Relationship Specialty Start Date End Date Debbi Staley FNP [address] [place] [id number] PCP - General Family Medicine 12/27/22 documented as of this encounter
--- OUTSIDE RECORDS SUMMARY | 2025-11-09 06:30 | XMS_ITS | Encounter Summary ---
Author Organization [employer] Address [address] [place] [address] 7t [place] [address] Care Team Providers Care Assistant Director Of Financial Aid Name Role Phone Farhana Roldan MD Primary Care Provider Ana Paulava Priyank Bustillo Primary Care Provider Unavail able Debbi Staley Primary Care Provider [phone] Encounter Details Date Type Department Care Team (Latest Contact Info) Description 12/29/2018 Abstract [facility] CONVERSIONS Dental, Provider, DDS Social History [...] on filedocumented in this encounter Care Teams Assistant Director Of Financial Aid Relationship Specialty Start Date End Date Farhana Roldan MD PCP - General Family Medicine 09/22/19 12/11/22 Priyank Unger AGNP PCP - General Family Medicine 12/12/22 12/26/22 Debbi Staley FNP [address] [place] [address] PCP - General Family Medicine 12/27/22 documented as of this encounter
--- OUTSIDE RECORDS SUMMARY | 2025-11-09 06:30 | XMS_ITS | Encounter Summary ---
Author Organization [employer] Address [address] [place] [address] 7t [place] [address] Care Team Providers Care Director Of Exhibits Name Role Phone Farhana Roldan MD Primary Care Provider Ana Paulava Priyank Bustillo Primary Care Provider Unavail able Debbi Staley Primary Care Provider Encounter Details Date Type Department Care Team (Latest Contact Info) Description 12/31/2019 Abstract [facility] CONVERSIONS Dental, Provider, DDS Social History Tobacco [...] on filedocumented in this encounter Care Teams Director Of Exhibits Relationship Specialty Start Date End Date Farhana Roldan MD PCP - General Family Medicine 09/22/19 12/11/22 Priyank Unger AGNP PCP - General Family Medicine 12/12/22 12/26/22 Debbi Staley FNP [address] [place] [address] PCP - General Family Medicine 12/27/22 documented as of this encounter
--- OUTSIDE RECORDS SUMMARY | 2025-11-09 06:30 | XMS_ITS | Encounter Summary ---
Author Organization [employer] Address [address] [facility] 7 [place] [address] Care Team Providers Care Cpr Ambulance Driver Name Role Phone [facility] Primary Care Provider [phone] Reason for Visit * Reason Onset Date Comments Med Refill 02/21/2025 Encounter Details Date Type Department Care Team (Late st Contact Info) Description 02/21/2025 Refill [facility] 230 [place], [place] [phone] [facility] 230 [place] [address] YONATHAN (generalized anxiety disorder) Social History Tobacco [...] documented as of this encounter Care Teams Cpr Ambulance Driver Relationship Specialty Start Date End Date Debbi Staley FNP [address] [place] [address] PCP - General Family Medicine 12/27/22 documented as of this encounter
== END 2025-11-09 06:28 | disposition home or self-care (01) ==
LOC: CF 06:27
PROVIDERS: Visit Provider Anesthesiology
DX: M47.812 Spondylosis without myelopathy or radiculopathy, cervical region (principal); G89.4 Chronic pain syndrome; M54.2 Cervicalgia; M46.1 Sacroiliitis, not elsewhere classified; M53.3 Sacrococcygeal disorders, not elsewhere classified
CPT/HCPCS: 27096; J2795; J3301; Q9967

== ENCOUNTER 2025-11-09 14:33 | Outpatient (AMB) | payer OTHER, SELFPAY ==
[2025-11-09 14:50] VITALS: BP 96/70; PULSE 82; RESP 16; O2SAT 100; BMI 25.0
--- NOTE | 2025-11-09 14:50 | A.OFFVIS_ITS ---
Vital Signs 11/09/25 14:50 11/09/25 15:18 Height 4 ft 11 in Weight 124 lb BMI 25.0 BP 96/70 99/74 Blood Pressure Location Lt brachial Lt brachial Position Sitting Sitting Respiration 16 16 Pulse 82 74 Pulse Source Pulse Oximeter Pulse Oximeter Pulse Oximetry (%) 100 99 Oxygen Delivery Method Room Air Room Air Intake Visit Reasons: Left Therapeutic SIJ Injection Allergies SEAFOOD Allergy (Severe, Uncoded 11/10/25 08:32) ITCHY THROAT shellfish Allergy (Unknown, Uncoded 11/10/25 08:32) ITCHY THROAT PFSH Medical History (Updated 11/10/25 @ 08:56 by Geronimo Nash MD) Arthritis Chronic neck pain Obesity Dysplasia of cervix, low grade (BOBBY 1) Sciatica Abnormal uterine bleeding Fibroadenoma Migraine Anemia Surgical History History of wisdom tooth extraction History of lumpectomy of right breast (01/28/20) Hx of gastric bypass H/O tubal ligation Family History (Updated 11/10/25 @ 08:34 by Laurie Davis CMA) Father Asthma Maternal Aunt Breast cancer Social History (Updated 11/10/25 @ 08:35 by Laurie Davis CMA) Household Members: Spouse and Children Housing: House Are you a primary career services assistant to a significant other at home: Yes (children) Do you presently have visiting nurse or other home services: No Alcohol intake: never Patient Tobacco Use Status: Never used Tobacco service: No Current occupational status: employed Current occupation: [employer] /rt handed Sexual orientation: Straight/Heterosexual Gender identity: Female Female Reproductive History Menstrual Age of Menarche: 8 Physical Exam Vital Signs: Last Vital Signs Pulse 74 11/09/25 15:18 Resp 16 11/09/25 15:18 BP 99/74 11/09/25 15:18 Pulse Ox 99 11/09/25 15:18 Oxygen Delivery Method Room Air 11/09/25 15:18 BMI result Body Mass Index 25.0 Assessment & Plan Assessment & Plan (1) Spondylosis of cervical region without myelopathy or radiculopathy: Code(s): M47.812 - Spondylosis without myelopathy or radiculopathy, cervical region Category: Medical (2) Arthropathy of facet joint: Code(s): M47.819 - Spondylosis without myelopathy or radiculopathy, site unspecified Category: Medical (3) Chronic pain syndrome: Code(s): G89.4 - Chronic pain syndrome Category: Medical (4) Myofascial neck pain: Code(s): M54.2 - Cervicalgia Category: Medical (5) Sacroiliitis: Code(s): M46.1 - Sacroiliitis, not elsewhere classified Category: Medical (6) Sacroiliac joint dysfunction of right side: Code(s): M53.3 - Sacrococcygeal disorders, not elsewhere classified Category: Medical (7) Sacroiliac joint dysfunction of left side: Code(s): M53.3 - Sacrococcygeal disorders, not elsewhere classified Category: Medical Plan Left diagnostic sacroiliac joint injection. the risks, benefits and alternatives were discussed with the patient and informed consent was obtained, patient was placed in the prone position on the operating table. Time out was performed delineating correct site and side of the procedure , name and of the patient, patient participated in time out procedure. The lower back and upper buttocks of the patient were prepped with ChloraPrep and draped with sterile self adhesive utility towels. C-arm was brought over the operating field and picture of the left SI joint was demonstrated on the screen. Tilting C-arm contralateral to the right the posterior silhouette of the sacroiliac joint was superimposed on anterior silhouette of the sacroiliac joint. The point slightly medial to the sacroiliac joint silhouette was injected with lidocaine 2%, forming skin wheal. After that 22 gauge 3-1/2 inch spinal needle was inserted through the skin wheal and advanced to were the sacroiliac joint in tunnel vision fashion. When the needle entered the sacroiliac joint capsule injection of the contrast was performed delineating intra-articular and minimally periarticular spread of the contrast. After that injection of the treatment solution of ropivacaine 0.5% 5 cc mixed with Kenalog 40 mg into the joint was performed. Upon completion of the injection needle was withdrawn sterile Band-Aid was applied. The patient tolerated the procedure well. Coding Level of Care Code Procedure Only Diagnoses Spondylosis of cervical region without myelopathy or radiculopathy M47.812 Arthropathy of facet joint M47.819 Chronic pain syndrome G89.4 Myofascial neck pain M54.2 Sacroiliitis M46.1 Sacroiliac joint dysfunction of right side M53.3 Sacroiliac joint dysfunction of left side M53.3
[2025-11-09 15:18] VITALS: BP 99/74; PULSE 74; RESP 16; O2SAT 99
--- OUTSIDE RECORDS SUMMARY | 2025-11-09 20:29 | XMS_ITS | Encounter Summary ---
Author Organization [employer] Address [address] [place] [address] 7 [place] [address] Care Team Providers Care Purchasing Engineer Name Role Phone [place] [facility] Primary Care Provider [phone] Reason for Visit * Reason Onset Date Comments Question 01/16/2023 Encounter Details Date Type Department Care Team ([facility] st Contact Info) Description 01/16/2023 Telephone [facility] [address] [place], [place] [phone] [place] [facility] [address] [place] [address] Question Social History Tobacco Use Types Packs/Day [...] AM EST TC placed to pt, utilizing [employer] Specification Writer ID:[id number], regarding message below. Pt reports ongoing pain [...] to help more. Please contact pt at [phone] * Telephone Encounter - Neela Snell - 01/16/2023 11:51 AM EST Tc from pt stating that she has started physical therapy and has been going for 3 days but feels that the therapies are not working , and asking if there is another solution that would be able to help more. Please contact pt at [phone] documented in this encounter Plan of Treatment Not on file documented as of this encounter Visit Diagnoses Not on filedocumented in this encounter Care Teams Purchasing Engineer Relationship Specialty Start Date End Date Debbi Staley FNP [address] [place] [address] PCP - General Family Medicine 12/27/22 documented as of this encounter
--- OUTSIDE RECORDS SUMMARY | 2025-11-09 20:29 | XMS_ITS | Clinical Summary ---
Author Organization [address] [place] [address] [place] [phone] Phone Care Team Providers Care Coil Winding Supervisor Name Role Phone Roberta Quinonez MD Primary Care Provider [phone] Allergies Active Allergy Reactions Criticality Noted Date [...] pain 09/20/2023 Overview (08/12/2025): ? 07[place]23/[place] [facility] [place] and SOB. EKG, [...] negative in 02/20 Hx of BOBBY 2 [id number] s/p LEEP cone Low grade squamous intraepit helial lesion (LGSIL) on cervicovaginal cytologic smear 02/07/2018 Anemia 09/25/2017 Encounters Date Type Department Care Team Description 10/06/2025 Telephone Bariatric Surgery - [address] [address] Eri Michael MD 08/12/2025 4:00 PM EDT Office Visit Bariatric Surgery [address] [address] Eri Michael MD Intestinal malabsorption following gastrectomy (Primary Dx) from Last 3 Months Surgical History Surgery Date Site/Laterality Comments OTHER SURGICAL HISTORY Right PROCEDURE: DE EXC BREAST LES PREOP PLMT RAD MARKER [...] PM EDT Office Visit Bariatric Surgery - [address] [place] [address] Eri Michael MD [address] [place] [address] Health Maintenance Due Date Last Done [...] [facility] [address] [place] [address], [place] [phone] * (ABNORMAL) Zinc (08/12/2025 3:50 PM EDT) Zinc 54(L) 60 - 130 ug/dL 08/16/2025 12:52 PM EDT [facility] Comment: Elevated results may be due to sample collected in a non-certified trace element-free tube. This test was developed and the performance characteristics determined by [facility]. It has not been cleared or approved by the FDA. The laboratory is regulated under CLIA as qualified to perform high-complexity testing. This test is used for patient testing purposes. It should not be regarded as investigational or for research. Test performed at [facility], [address], [place] [address] Sheela Giordano MD, PhD - Dry Press Operator Blood Venous blood specimen / Unknown Venipuncture / Unknown 08/12/2025 3:50 PM EDT 08/12/2025 3:50 PM EDT Eri Michael MD LAB BLOOD ORDERABLES Final R esult [address] [place] [address] * (ABNORMAL) Vitamin D 25 hydroxy (08/12/2025 3:50 PM EDT) Pathologist [facility] Vit D, 25-Hydroxy 17.2(L) 30.0 - 80.0 ng/mL LAB CHEMISTRY METHOD 08/12/2025 8:39 PM EDT [facility] Blood Venous blood specimen / Unknown Venipuncture / Unknown 08/12/2025 3:50 PM EDT 08/12/2025 3:50 PM EDT Eri Michael MD LAB BLOOD ORDERABLES Final R esult Performing Organization Address City/[facility]/ZIP Co de Phone Number [facility] [address] [place] [address], [place] [phone] * Folate (08/12/2025 3:50 PM EDT) [facility] Folate 8.5 2.8 - 17.0 ng/ml LAB CHEMISTRY METHOD 08/12/2025 7:03 PM EDT [facility] Blood Venous blood specimen / Unknown Venipuncture / Unknown 08/12/2025 3:50 PM EDT 08/12/2025 3:50 PM EDT Eri Michael MD LAB BLOOD ORDERABLES Final R esult [facility] [address] [place] [address], [place] [phone] * Vitamin B12 (08/12/2025 3:50 PM EDT) [facility] Vitamin B-12 310 250 - 900 pcg/mL LAB CHEMISTRY METHOD 08/12/2025 7:03 PM EDT [facility] Blood Venous blood specimen / Unknown Venipuncture / Unknown 08/12/2025 3:50 PM EDT 08/12/2025 3:50 PM EDT us Eri Michael MD LAB BLOOD ORDERABLES Final R esult Performing Organization Address City/[facility]/ZIP Co de Phone Number [facility] [address] [place] [address], [place] [phone] * Calcium (08/12/2025 3:50 PM EDT) Calcium 8.8 8.5 - 10.5 mg/dL LAB CHEMISTRY METHOD 08/12/2025 6:40 PM EDT [facility] Blood Venous blood specimen / Unknown Venipuncture / Unknown 08/12/2025 3:50 PM EDT 08/12/2025 3:50 PM EDT us Eri Michael MD LAB BLOOD ORDERABLES Final R esult Performing Organization Address [facility]/ZIP Co de Phone Number [facility] [address] [place] [address], [place] [phone] * Albumin (08/12/2025 3:50 PM EDT) Albumin 3.9 3.2 - 5.0 g/dL LAB CHEMISTRY METHOD 08/12/2025 6:40 PM EDT [facility] Blood Venous blood specimen / Unknown Venipuncture / Unknown 08/12/2025 3:50 PM EDT 08/12/2025 3:50 PM EDT us Eri Michael MD LAB BLOOD ORDERABLES Final R esult Performing Organization Address City/[facility]/ZIP Co de Phone Number [facility] [address] [place] [address], [place] [phone] * (ABNORMAL) Lipid panel (01/09/2021) LDL/HDL Ratio 3 0 - 4 Triglycerides 56 0 - 150 mg/dL Cholesterol 184 0 - 200 mg/dL HDL 67 >=40 mg/dL LDL Cholesterol 106(A) 0 - 100 mg/dL Blood Venous blood specimen / Unknown Historical Provider LAB BLOOD ORDERABLES Catarina l Result from Last 3 Months or Most Recently Relevant to Health Maintenance Insurance [employer] [facility] Care Teams Coil Winding Supervisor Relationship Specialty Start Date End Date Roberta Quinonez MD [address] [place] [address] PCP - General Patternmaker All Around 10/13/20
--- OUTSIDE RECORDS SUMMARY | 2025-11-09 20:29 | XMS_ITS | Clinical Summary ---
Author Organization [employer] Address [address] [facility] 7t [place] [address] Care Team Providers Care Order Processor Name Role Phone Debbi Staley COREMAKING MACHINE SETTER Primary Care Provider [phone] Allergies Active Allergy Reactions Criticality Noted Date [...] chest pain 09/20/2023 Overview (09/20/2023): 07/23/23[place] [facility] [place] and SOB. EKG, CXR [...] of SI or self harm. Pt has [facility] crisis contact information Assessment & Plan (10/08/2023 2:30 PM EST): INCREASE remeron to 15mg at bedtime Continue lexapro 10mg Continue to work with therapist Encouraged acupuncture Contact HC if sx worsen or experiencing thoughts of SI or self harm. Pt has [facility] crisis contact information Assessment & Plan [...] intractable 02/16/2019 Overview (06/29/2023): Saw neurology in [place] Reports normal MRI in [place] Chronic low back pain 11/18/2018 Overview (05/10/2024): [...] negative in 02/20 Hx of BOBBY 2 [id number] s/p LEEP cone Low grade squamous intraepit [...] Type Department Care Team Description 11/08/2025 Refill [facility] [address] [place] [address] Debbi Staley, COREMAKING MACHINE SETTER Muscle spasms of neck 11/08/2025 Refill [facility] [address] [place] [address] RebekaDebbi chandler, COREMAKING MACHINE SETTER YONATHAN (generalized anxiety disorder) 10/06/2025 Refill [facility] [address] [place] [address] ThorndaleDebbi chandler, COREMAKING MACHINE SETTER Muscle spasms of neck; YONATHAN (generalized anxiety disorder) 09/22/2025 10:30 AM EDT Immunization [facility] [address] [place] [address] Mirela Abreu, RN Encounter for vaccination; Encounter for immunization 09/22/2025 Travel 09/21/2025 Telephone [facility] [address] [place] [address] Debbi Staley FNP Appointment Request 09/02/2025 Refill [facility] [address] [place] [address] RebekaDebbi chandler FNP YONATHAN (generalized anxiety disorder) 08/18/2025 10:00 AM EDT Office Visit [facility] [address] [facility] [address] Ludin, Beatriz, OD White without pressure of [...] the past 12 months, has t he [employer], gas, oil or water company threatened to [...] Hepatitis C Antibody NON-REACT AUDELIA NON-REACT AUDELIA [facility] Index 0.02 <1.00 [facility] Comment: HCV antibody was non-reactive. There is no laboratory evidence of HCV infection. In most cases, no further action is required. However, if recent HCV exposure is suspected, a test for HCV RNA (test code 13101) is suggested. For additional information please refer to http://education.[employer] Work[employer]/faq/KWG84v7 (This link is being provided for informational/ educational purposes only.) Blood Venous blood specimen / Unknown 02/14/2023 3:22 PM EDT 02/14/2023 3:23 PM EDT Narrative [facility] - 02/15/2023 1:02 PM EDT FASTING:NO FASTING: NO [facility] LAB BLOOD ORDERABLES Final Re sult [facility] [address], [place] [address] [facility] [address] [place] [address] * HIV-1/2 Antigen and Antibodies, Fourth Generation, with Reflexes (02/14/2023 3:22 PM EDT) HIV Antigen/Antibody, 4th Generation NON-REAC TIVE NON-REAC TIVE [employer] Comment: HIV-1 antigen and HIV-1/HIV-2 antibodies were [...] purpose. For additional information please refer to http://jaja.tv.[employer] Workforce/faq/WBG806 (This link is being provided for informational/ educational purposes only.) The performance of this assay has not been clinically validated in patients less than 2 years old. Blood Venous blood specimen / Unknown 02/14/2023 3:22 PM EDT 02/14/2023 3:23 PM EDT Narrative [facility] - 02/15/2023 1:02 PM EDT FASTING:NO FASTING: NO [facility] LAB BLOOD ORDERABLES Final Re sult [facility] [address], [place] [address] [facility] [address] [place] [address] * HPV E6/E7 RFLX NANCY 16 18/45 (02/14/2022 11:38 AM EDT) HPV mRNA E6/E7 rflx Not Detected Not Detected [facility] Comment: Methodology: Marine Engineering Consultant-Mediated Amplification This assay detects E6/E7 viral messenger RNA (mRNA) from 14 high-risk HPV types (16,18,31,33,35,39,45,51,52,56,58,59,66,68). The analytical performance characteristics of this assay have been determined by [facility]. The modifications have not been cleared or approved by the FDA. This assay has been validated pursuant to the CLIA regulations and is used for clinical purposes. For additional information, please refer to http://jaja.tv.[employer] Workforce/faq/STK710i3 (This link if provided for information/ educational purposes only.) THIS TEST WAS PERFORMED AT: [facility] [address] [place] [address] [address]LO[address],[place] [address] STACEY VARGAS MD 02/14/2022 11:3 8 AM EDT Geronimo Nash MD HISTORICAL/NON ORDERABLE LABS Fi nal Result [facility] [address] * Pap Smear (02/14/2022) Historical Provider HEALTH MAINTENANCE Final Result from Last 3 Months or Most Recently Relevant to Health Maintenance [place] [address] [id number] 2 [employer] O Care Teams Order Processor Relationship Specialty Start Date End Date Debbi Staley FNP [address] [place] [address] PCP - General Family Medicine 12/27/22
--- OUTSIDE RECORDS SUMMARY | 2025-11-09 20:29 | XMS_ITS | Encounter Summary ---
Author Organization [employer] Address [address] [facility] 7 [place] [address] Care Team Providers Care Emergency Medicine Medical Director Name Role Phone [facility] Primary Care Provider [phone] Reason for Visit * Reason Onset Date Comments Med Refill 02/21/2025 Encounter Details Date Type Department Care Team (Late st Contact Info) Description 02/21/2025 Refill [facility] [address] [place], [place] [phone] [facility] [address] [place] [address] YONATHAN (generalized anxiety disorder) Social History Tobacco [...] documented as of this encounter Care Teams Emergency Medicine Medical Director Relationship Specialty Start Date End Date Debbi Staley FNP [address] [place] [address] PCP - General Family Medicine 12/27/22 documented as of this encounter
--- OUTSIDE RECORDS SUMMARY | 2025-11-09 20:29 | XMS_ITS | Encounter Summary ---
Author Organization [employer] Address [address] [facility] 7 [place] [address] Care Team Providers Care Hollow Core Door Frame Assembler Name Role Phone [facility] Primary Care Provider [phone] Reason for Visit * Reason Onset Date Comments Med Refill 10/26/2024 Encounter Details Date Type Department Care Team (Late st Contact Info) Description 10/26/2024 Refill [facility] [address] [place], [place] [phone] [facility] [address] [place] [address] Muscle spasms of neck; Chronic bilateral low [...] documented as of this encounter Care Teams Hollow Core Door Frame Assembler Relationship Specialty Start Date End Date Debbi Staley FNP [address] [place] [address] PCP - General Family Medicine 12/27/22 documented as of this encounter
--- OUTSIDE RECORDS SUMMARY | 2025-11-09 20:29 | XMS_ITS | Encounter Summary ---
Author Organization [employer] Address [address] [place] [address] 7 [place] [address] Care Team Providers Care Process Improvement Analyst Name Role Phone [facility] Primary Care Provider [phone] Reason for Visit * Reason Onset Date Comments Med Refill 02/21/2025 Encounter Details Date Type Department Care Team (Late st Contact Info) Description 02/21/2025 Refill [facility] [address] [place], [place] [phone] [facility] [address] [place] [address] Chronic bilateral low back pain with bilateral [...] documented as of this encounter Care Teams Process Improvement Analyst Relationship Specialty Start Date End Date Debbi Staley FNP [address] [place] [address] PCP - General Family Medicine 12/27/22 documented as of this encounter
--- OUTSIDE RECORDS SUMMARY | 2025-11-09 20:29 | XMS_ITS | Encounter Summary ---
Author Organization [employer] Address [address] [place] [address] 7 [place] [address] Care Team Providers Care Medication Reconciliation Technician Name Role Phone [facility] Primary Care Provider [phone] Reason for Visit * Reason Onset Date Comments Med Refill 10/06/2025 Encounter Details Date Type Department Care Team (Late st Contact Info) Description 10/06/2025 Refill [facility] [address] [place], [place] [phone] [facility] [address] [place] [address] Muscle spasms of neck; YONATHAN (generalized anxiety [...] documented as of this encounter Care Teams Medication Reconciliation Technician Relationship Specialty Start Date End Date Debbi Staley FNP [address] [place] [address] PCP - General Family Medicine 12/27/22 documented as of this encounter
--- OUTSIDE RECORDS SUMMARY | 2025-11-09 20:29 | XMS_ITS | Encounter Summary ---
Author Organization [employer] Address [address] [place] [address] 7 [place] [address] Care Team Providers Care Convolute Tube Winder Name Role Phone [facility] Primary Care Provider [phone] Reason for Visit * Reason Onset Date Comments Med Refill 11/08/2025 Encounter Details Date Type Department Care Team (Late st Contact Info) Description 11/08/[address] [facility] [address] [place], [place] [phone] [facility] [address] [place] [address] YONATHAN (generalized anxiety disorder) Social History Tobacco [...] documented as of this encounter Care Teams Convolute Tube Winder Relationship Specialty Start Date End Date Debbi Staley FNP [address] [place] [address] PCP - General Family Medicine 12/27/22 documented as of this encounter
--- OUTSIDE RECORDS SUMMARY | 2025-11-09 20:30 | XMS_ITS | Encounter Summary ---
Author Organization [employer] Address [address] [place] [address] 7 [place] [address] Care Team Providers Care Batch Dumper Name Role Phone [facility] Primary Care Provider [phone] Reason for Visit * Reason Onset Date Comments Med Refill 11/08/2025 Encounter Details Date Type Department Care Team (Late st Contact Info) Description 11/08/2025 Refill [facility] [address] [place], [place] [phone] [facility] 230 [place] [address] Muscle spasms of neck Social History Tobacco [...] documented as of this encounter Care Teams Batch Dumper Relationship Specialty Start Date End Date Debbi Staley FNP [address] [place] [address] PCP - General Family Medicine 12/27/22 documented as of this encounter
--- OUTSIDE RECORDS SUMMARY | 2025-11-09 20:30 | XMS_ITS | Encounter Summary ---
Author Organization [employer] Address 75 [facility] 7t [place] [address] Care Team Providers Care Vulcanizer Operator Name Role Phone Debbi Staley SLEEP TECHNICIAN Primary Care Provider [phone] Reason for Visit * Reason Onset Date Comments Med Refill 09/18/2023 Encounter Details Date Type Department Care Team (Late st Contact Info) Description 09/18/2023 Refill [facility] [address] [place] [address] Christine Muhammad FNP Social History Tobacco Use [...] t he electric, gas, oil or water [employer]) threatened to shut off services in your [...] documented as of this encounter Care Teams Vulcanizer Operator Relationship Specialty Start Date End Date Debbi Staley FNP [address] [place] [address] PCP - General Family Medicine 12/27/22 documented as of this encounter
--- OUTSIDE RECORDS SUMMARY | 2025-11-09 20:30 | XMS_ITS | Encounter Summary ---
Author Organization [employer] Address 75 [facility] 7 [place] [address] Care Team Providers Care Switching Clerk Name Role Phone [facility] Primary Care Provider [phone] Reason for Visit * Reason Onset Date Comments Med Refill 09/18/2023 Encounter Details Date Type Department Care Team (Late st Contact Info) Description 09/18/2023 Refill [facility] [address] [place], [place] [phone] [facility] [address] [place] [address] Muscle spasms of neck; YONATHAN (generalized anxiety [...] documented as of this encounter Care Teams Switching Clerk Relationship Specialty Start Date End Date Debbi Staley FNP [address] [place] [address] PCP - General Family Medicine 12/27/22 documented as of this encounter
--- OUTSIDE RECORDS SUMMARY | 2025-11-09 20:30 | XMS_ITS | Encounter Summary ---
Author Organization [employer] Address 75 [facility] 7t [place] [address] Care Team Providers Care Electrical Products Sales Engineer Name Role Phone Debbi Staley AD CLERK Primary Care Provider [phone] Reason for Visit * Reason Comments Med Refill Encounter Details Date Type Department Care Team ([facility] st Contact Info) Description 09/18/2023 Refill [facility] [address] [place] [address] Christine Muhammad FNP Social History Tobacco Use [...] documented as of this encounter Care Teams Electrical Products Sales Engineer Relationship Specialty Start Date End Date Debbi Staley FNP [address] [place] [address] PCP - General Family Medicine 12/27/22 documented as of this encounter
--- OUTSIDE RECORDS SUMMARY | 2025-11-09 20:30 | XMS_ITS | Clinical Summary ---
Author Organization [facility] Address [address] [place] [address] Phone Care Team Providers Care Patient Clerical Assistant Name Role Phone [facility] Primary Care Provider Unavailable Allergies Active Allergy [...] on file Insurance [employer] Care Teams Patient Clerical Assistant Relationship Specialty Start Date End Date CenterJosr MD PCP - General 08/15/23 Additional Source Comments The information contained in this document represents components of the legal health record. It is not the complete legal health record.[facility]
--- OUTSIDE RECORDS SUMMARY | 2025-11-09 20:31 | XMS_ITS | Encounter Summary ---
Author Organization [employer] Address [address] [facility] 7t [place] [address] Care Team Providers Care Business Administration Program Chair Name Role Phone Debbi Staley SUPERVISOR PLASTERING Primary Care Provider [phone] Encounter Details Date Type Department Care Team (Late st Contact Info) Description 08/27/2023 Orders Only [facility] [address] [place] [address] Provider, MD Tony Social History Tobacco Use [...] documented as of this encounter Care Teams Business Administration Program Chair Relationship Specialty Start Date End Date Debbi Staley FNP [address] [place] [address] PCP - General Family Medicine 12/27/22 documented as of this encounter
--- OUTSIDE RECORDS SUMMARY | 2025-11-09 20:31 | XMS_ITS | Encounter Summary ---
Author Organization [employer] Address [address] [place] [address] 7t [place] [address] Care Team Providers Care Manager Dialysis Name Role Phone Farhana Roldan MD Primary Care Provider Ana Paulava Priyank Bustillo Primary Care Provider Unavail able Debbi Staley Primary Care Provider [phone] Encounter Details Date Type Department Care Team (Latest Contact Info) Description 12/29/2018 Abstract [facility] CONVERSIONS Dental, Provider, DDS Social History [...] on filedocumented in this encounter Care Teams Manager Dialysis Relationship Specialty Start Date End Date Farhana Roldan MD PCP - General Family Medicine 09/22/19 12/11/22 Priyank Unger AGNP PCP - General Family Medicine 12/12/22 12/26/22 Debbi Staley FNP [address] [place] [address] PCP - General Family Medicine 12/27/22 documented as of this encounter
--- OUTSIDE RECORDS SUMMARY | 2025-11-09 20:31 | XMS_ITS | Encounter Summary ---
Author Organization [employer] Address [address] [place] [address] 7t [place] [address] Care Team Providers Care Associate Professor Of Economics Name Role Phone Farhana Roldan MD Primary Care Provider Ana Paulava Priyank Bustillo Primary Care Provider Unavail able Debbi Staley Primary Care Provider [phone] Encounter Details Date Type Department Care Team (Latest Contact Info) Description 12/31/2019 Abstract [facility] CONVERSIONS Dental, Provider, DDS Social History [...] on filedocumented in this encounter Care Teams Associate Professor Of Economics Relationship Specialty Start Date End Date Farhana Roldan MD PCP - General Family Medicine 09/22/19 12/11/22 Priyank Unger AGNP PCP - General Family Medicine 12/12/22 12/26/22 Debbi Staley FNP [address] [place] [address] PCP - General Family Medicine 12/27/22 documented as of this encounter
== END 2025-11-09 15:16 | disposition home or self-care (01) ==
LOC: HO.PMCPRC 14:33
PROVIDERS: PCP Registered Nurse; Visit Provider Anesthesiology
DX: M46.1 Sacroiliitis, not elsewhere classified (principal); M53.3 Sacrococcygeal disorders, not elsewhere classified
CPT/HCPCS: 27096

== ENCOUNTER 2025-11-10 08:16 | Outpatient (REF) | payer OTHER, SELFPAY ==
[2025-11-10 22:40] LABS: Bacterial Vaginosis PCR POSITIVE (Negative); Candida Group PCR NOT DETECTED (Not Detect); Candida glab krusei PCR NOT DETECTED (Not Detect); Trichomonas vaginalis PCR NOT DETECTED (Not Detect)
[2025-11-10 23:24] LABS: CT PCR NOT DETECTED (Not Detect.); NG PCR NOT DETECTED (Not Detect.)
== END 2025-11-10 08:17 | disposition home or self-care (01) ==
LOC: HO.LNP 08:16
PROVIDERS: PCP Registered Nurse; Visit Provider Obstetrics & Gynecology
DX: Z01.419 Encounter for gynecological examination (general) (routine) without abnormal findings (principal); Z30.431 Encounter for routine checking of intrauterine contraceptive device; Z20.2 Contact with and (suspected) exposure to infections with a predominantly sexual mode of transmission; N76.0 Acute vaginitis; B96.89 Other specified bacterial agents as the cause of diseases classified elsewhere; Z98.51 Tubal ligation status
CPT/HCPCS: 81515; 87491; 87591; 87626; 88175

== ENCOUNTER 2025-11-10 08:16 | Outpatient (AMB) | payer OTHER, SELFPAY ==
--- NOTE | 2025-11-10 08:30 | A.OFFVIS_ITS ---
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 No complaints. Last Pap/HPV was negative in 04/23 [facility] Medical History (Updated 11/10/25 @ 08:56 by Geronimo Nash MD) Arthritis Chronic neck pain Obesity Dysplasia of cervix, low grade (BOBBY 1) Sciatica Abnormal uterine bleeding Fibroadenoma Migraine Anemia Surgical History History of wisdom tooth extraction History of lumpectomy of right breast (01/28/20) Hx of gastric bypass H/O tubal ligation Family History (Updated 11/10/25 @ 08:34 by Laurie Davis CMA) Father Asthma Maternal Aunt Breast cancer Social History Household Members: Spouse and Children Housing: House Are you a primary care support representative to a significant other at home: Yes (children) Do you presently have visiting nurse or other home services: No Alcohol intake: never Patient Tobacco Use Status: Never used Tobacco service: No Current occupational status: employed Current occupation: [employer]rt handed Sexual orientation: Straight/Heterosexual Gender identity: Female Female Reproductive History Menstrual Age of Menarche: 8 control method: progestin IUCD Total pregnancies: 3 Full term: 2 Ab induced: 1 Date of last pap smear: 04/10/23 Review of Systems Const All systems reviewed & are unremarkable except as noted in HPI and below Card Reports as per HPI Resp Reports as per HPI GI Reports as per HPI and Reports no additional complaints Reports as per HPI Physical Exam Vital Signs: BMI result Body Mass Index 24.2 Const General: cooperative, healthy appearing and comfortable Chest Chest palpation & inspection: normal inspection of the chest and normal palpation of entire chest wall Breast/axilla inspection: normal inspection of the breasts and normal inspection of the axillae Breast/axilla palpation: normal palpation of the breasts, normal palpation of the axillae and no axillary lymphadenopathy Resp Effort & Inspection: normal respiratory effort Auscultation: clear to auscultation bilaterally Percussion: percussion normal Cardio Palpation: normal PMI Rate: regular rate Rhythm: regular rhythm Heart sounds: no murmurs and no rubs Peripheral pulses: Peripheral pulses 2+ throughout GI Inspection: Yes normal to inspection Palpation (GI): Soft to palpation, nontender, no guarding, not rigid and No hepatosplenomegaly present Percussion: Yes normal to percussion Auscultation: normal bowel sounds Rectal Exam - Female: deferred General: Yes bladder normal to palpation External Female Exam: No lesion Speculum Exam - Vagina: normal appearance of the vagina, normal palpation, normal vaginal discharge and not erythematous Speculum Exam - Cervix: normal appearance of the cervix and normal palpation Bimanual exam- vagina & uterus: normal bimanual exam, normal palpation, uterine size normal, bladder normal to palpation, consistency normal and normal palpation Bimanual Exam- Adnexa, other: normal adnexae, no masses and no tenderness Assessment & Plan Assessment & Plan (1) Well woman exam: Comment: History of BOBBY 2 in 2018 status post LEEP cone Code(s): Z01.419 - Encounter for gynecological examination (general) (routine) without abnormal findings Category: Medical Plan: Cotesting done. Counseled the patient about the recommended dietary allowance of 1000 mg of Calcium & 600 IU of vitamin D. The patient was instructed to perform monthly self-breast exams and to schedule an annual exam in a year; All questions answered and the patient verbalized understanding. Instructed the patient to schedule annual exam in a year (2) IUD check up: Comment: Mirena IUD inserted 11/22 Code(s): Z30.431 - Encounter for routine checking of intrauterine contraceptive device Category: Medical Plan: Discussed with the patient Mirena IUD was inserted in 11/22, the patient removing and replacing the Mirena IUD before 11/20 7 (3) Bacterial vaginosis: Code(s): N76.0 - Acute vaginitis; B96.89 - Other specified bacterial agents as the cause of diseases classified elsewhere Category: Medical Plan: GC and chlamydia cultures with BV panel taken. Per CDC recommendation, will screen for STI, HepBs Ag, HIV, RPR, Hep C Ab ordered. Will treat with Flagyl 500 mg p.o. b.i.d. x 7 days, Instructions given to the patient to refrain from sexual activity or to use condoms consistently and correctly during the BV treatment regimen, not to douch, it might increase the risk for relapse, and to call if symptoms persist or recur. Orders: Orders Pap Smear Today Z01.419 - Encounter for gynecological examination (general) (routine) without abnormal findings HPV High risk Today Z01.419 - Encounter for gynecological examination (general) (routine) without abnormal findings HIV Ab/Ag Today B96.89 - Other specified bacterial agents as the cause of diseases classified elsewhere, N76.0 - Acute vaginitis Bacterial Vaginosis Panel Today Z01.419 - Encounter for gynecological examination (general) (routine) without abnormal findings CT NG by PCR Vag/Cerv Today Z01.419 - Encounter for gynecological examination (general) (routine) without abnormal findings Hepatitis B Surface Antigen Today B96.89 - Other specified bacterial agents as the cause of diseases classified elsewhere, N76.0 - Acute vaginitis Hepatitis C Antibody Today B96.89 - Other specified bacterial agents as the cause of diseases classified elsewhere, N76.0 - Acute vaginitis Syphilis Screen Today 96.89 - Other specified bacterial agents as the cause of diseases classified elsewhere, N76.0 - Acute vaginitis Medications: New metronidazole 500 mg PO BID 14 tabs 0RF 7 days Coding Level of Care Code Est Pt Prev Care 18-39y([id number]) Diagnoses Well woman exam Z01.419 IUD check up Z30.431 Bacterial vaginosis N76.0; B96.89
[2025-11-10 08:31] VITALS: BP 116/70; BMI 24.2
== END 2025-11-10 09:15 | disposition home or self-care (01) ==
LOC: HO.HWS 08:16
PROVIDERS: PCP Registered Nurse; Visit Provider Obstetrics & Gynecology
DX: Z01.419 Encounter for gynecological examination (general) (routine) without abnormal findings (principal); N76.0 Acute vaginitis; B96.89 Other specified bacterial agents as the cause of diseases classified elsewhere; Z30.431 Encounter for routine checking of intrauterine contraceptive device
CPT/HCPCS: 99395; 99459

== ENCOUNTER 2025-11-10 09:10 | Outpatient (REF) | payer OTHER, SELFPAY ==
[2025-11-10 11:39] LABS: Syphilis Screen Nonreactive (Nonreactive)
[2025-11-10 11:40] LABS: HBsAGNum1 0.36 S/CO (0.00-0.99); HIV Num 1 0.06 S/CO (0.00-0.99); Hepatitis B Surface Antigen Negative (Negative); ~HepC Num1 0.10 S/CO (0.00-0.79); ~Hepatitis C Antibody Nonreactive (Nonreactive)
== END 2025-11-10 09:11 | disposition home or self-care (01) ==
LOC: HO.LAB 09:10
PROVIDERS: PCP Registered Nurse; Visit Provider Obstetrics & Gynecology
DX: Z11.4 Encounter for screening for human immunodeficiency virus [HIV] (principal); Z11.59 Encounter for screening for other viral diseases; N76.0 Acute vaginitis; B96.89 Other specified bacterial agents as the cause of diseases classified elsewhere
CPT/HCPCS: 36415; 86780; 86803; 87340; 87389